=== PATIENT | female | born 1955 | race Caucasian/White ===

== ENCOUNTER 2016-10-03 13:31 | Inpatient (IN) | payer MEDICAID ==
--- NOTE | 2016-10-03 13:52 | Emergency Department Record ---
History of Present Illness - General Chief Complaint: Slurred speech Stated Complaint: SLURRED SPEECH Time Seen by Provider: 10/03/16 13:40 Source: Patient, Family Mode of Arrival: Wheelchair Limitations: No limitations - History of Present Illness Initial Comments: The patient is here with family due to not feeling well for one day. She developed weakness and confusion last evening per her family. She has not had anything to drink in almost 24 hours per her son and she is not able to get up and walk. The patient has fallen recently but has not hit her head and and she denies any CP, SOB, OAEKS or visual changes. The patient and son deny any new medicines or running out of any medicines. Onset/Timin -: Days(s) Location: Ataxia, Speech History of same: No Place: Home Severity: Mild Quality: Weak Improves With: None Worsens With: None On Anticoagulants: No Context: Recent fall, Gradual onset Associated Symptoms: Confusion, Headaches, Weakness Treatments Prior to Arrival: None - [place] Coma Scale Eye Response: (4) Open spontaneously Motor Response: (6) Obeys commands Verbal Response: (5) Oriented Karlene Total: 15 - Symptoms of Stroke Onset of Symptoms Date: 10/02/16 Symptoms of stroke: Muscle Weakness, Unable to Think Clearly, Unsteady When Walking - Related Data Home Medications: Home Medications Medication Instructions Recorded Confirmed Last Taken Albuterol Sulfate [Ventolin Hfa] 1 - 2 puff IH .EVERY 4-6 HOURS PRN 07/11/14 Unknown Gabapentin [Neurontin] 600 mg PO TID 07/11/14 10/03/16 Unknown Levothyroxine Sodium [Synthroid] 88 mcg PO DAILY 07/11/14 10/03/16 Unknown Omeprazole [Prilosec] 20 mg PO DAILY 07/11/14 10/03/16 Unknown Trazodone HCl [Desyrel] 50 mg PO QHS 07/11/14 10/03/16 Unknown Duloxetine HCl [Cymbalta] 30 mg PO DAILY 03/05/16 10/03/16 Unknown Ergocalciferol (Vitamin D2) 100,000 unit PO WEEKLY 03/05/16 10/03/16 Unknown [Vitamin D2] Hydroxyzine Pamoate [Vistaril] 50 mg PO QID 03/05/16 10/03/16 Unknown Mometasone/Formoterol [Dulera 100 2 puff IH BID 03/05/16 10/03/16 Unknown Mcg/5 Mcg Inhaler] Aspirin [Aspir-Low] 81 mg PO DAILY 10/03/16 10/03/16 Unknown Gabapentin [Neurontin] 400 mg PO TID 10/03/16 10/03/16 Unknown Meloxicam [Mobic] 15 mg PO DAILY 10/03/16 10/03/16 Unknown Previous Rx's Medication Instructions Recorded Nitrofurantoin [place] [Macrobid] 100 mg PO BID #10 capsule 03/06/16 Allergies/Adverse Reactions: Allergies Allergy/AdvReac Type Severity Reaction Status Date / Time haloperidol [From Haldol] Allergy SWELLING Verified 10/03/16 13:39 OF THE TONGUE haloperidol lactate Allergy SWELLING Verified 10/03/16 13:39 [From Haldol] OF THE TONGUE Penicillins Allergy HIVES Verified 10/03/16 13:39 Travel Screening - Travel/Exposure Within Last 30 Days Have you traveled within the last 30 days?: No Review of Systems Constitutional: Reports: Malaise. Denies: Chills, Fever Eyes: Denies: Eye discharge ENT: Denies: Congestion Respiratory: Denies: Cough, Dyspnea Cardiovascular: Denies: Arrhythmia, Chest pain Endocrine: Reports: Fatigue Gastrointestinal: Denies: Nausea Genitourinary: Denies: Dysuria Musculoskeletal: Denies: Back pain Skin: Denies: Bruising Past Medical History - SOCIAL HISTORY Smoking Status: Former smoker Alcohol Use: Occassional Drug Use: None - RESPIRATORY Hx Respiratory Disorders: Yes Hx COPD: Yes - CARDIOVASCULAR Hx Cardio Disorders: Yes Comment:: leaky mitral and aortic valve - NEURO Hx Neuro Disorders: Yes Hx Dizziness: Yes Hx Seizures: No Hx TIA: Yes - GI Hx GI Disorders: Yes Hx Reflux: Yes Hx Ulcer: Yes - Hx Genitourinary Disorders: Yes Hx UTI: Yes Comment:: interstitial cystitis - ENDOCRINE Hx Endocrine Disorders: Yes Hx Thyroid Disease: Yes (hyper) - MUSCULOSKELETAL Hx Musculoskeletal Disorders: Yes Hx Arthritis: Yes Hx Back Injury: Yes (ruptured disks in neck and lower back) Comment:: stenosis of the spine - PSYCH Hx Psych Problems: Yes Hx Anxiety: Yes - HEMATOLOGY/ONCOLOGY Hx Hematology/Oncology Disorders: No Family Medical History Any Significant Family History?: Yes Hx Cancer: Father Physical Exam - General General Appearance: Alert, Cooperative, No acute distress - Head Head exam: Atraumatic, Normocephalic, Normal inspection - Eye Eye exam: Normal appearance, PERRL - ENT Throat exam: Normal inspection. negative: Tonsillar erythema, Tonsillar exudate - Neck Neck exam: Normal inspection, Full ROM. negative: Tenderness - Respiratory Respiratory exam: Decreased breath sounds. negative: Normal lung sounds bilaterally, Respiratory distress - Cardiovascular Cardiovascular Exam: Regular rate, Normal rhythm, Normal heart sounds - Extremities Extremities exam: Normal inspection, Full ROM, Normal capillary refill. negative: Tenderness - Neurological Neurological exam: Abnormal gait, Alert. negative: Motor sensory deficit, Normal gait, Oriented X3 (The patient is oriented to name, place, and Bday but not the year. 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 She is more awake and alert and denies any pain or discomfort. Her speech is much more clear and she denies any OAKES, arm or leg numbness, or weakness. Due to the multiple abnormalities with her workup regarding her lab tests we will admit her to the hospital overnight for IV ABx, fluids, and repeat lab testing. 10/03/16 15:44 Medical Decision Making - Data Complexity MDM Data: Labs Ordered and/or Reviewed, X-Ray Ordered and/or Reviewed, EKG Ordered and/or Reviewed - Lab Data Result diagrams: 10/03/16 13:50 10/03/16 13:50 - EKG Data -: EKG Interpreted by Nc EKG: No Acute Changes, Unchanged From Previous - Radiology Data Radiology results: Report reviewed (CXR: No acute changes. Head CT: No acute changes.) Disposition Disposition: Admit Clinical Impression: Altered mental status Qualifiers: Altered mental status type: unspecified Qualified Code(s): R41.82 - Altered mental status, unspecified Disposition: Still a Patient at [facility] Decision to Admit: Admit from ER Decision to Admit Date: 10/03/16 Decision to Admit Time: 15:46 Accepting Physician: Christel Time Discussed w/Accepting Physician: 15:46 Condition: (2) Stable Forms: Patient Portal Access Time of Disposition: 15:46
[2016-10-03 14:01] LABS: BASO % 0.4 % (0-6); EOS % 0.6 % (0-6); GRAN % 77.2 % (47-80); HEMATOCRIT 44.6 % (35.0-47.0); HEMOGLOBIN 13.6 gm/dl (11.6-16.0); LYMPH % 9.3 % (16-45); MEAN CELL VOLUME 99.6 fl (81-97); MEAN CORPUSCULAR HEMOGLOBIN 30.4 pg (27-33); MEAN CORPUSCULAR HGB CONC 30.5 g/dl (32-36); MEAN PLATELET VOLUME 10.3 fl (7.4-10.4); MONO % 12.5 % (0-9); PLATELET COUNT 335 K/uL (130-400); RED BLOOD COUNT 4.48 M/uL (3.80-5.40); RED CELL DISTRIBUTION WIDTH 14.9 % (11.5-14.5); WHITE BLOOD COUNT W/O DIFF 14.2 K/uL (4.2-12.2)
[2016-10-03 14:15] LABS: ANION GAP 6.2 (7-16); BLOOD UREA NITROGEN 40 mg/dL (7-17); CARBON DIOXIDE 33.8 mmol/L (22-30); CREATINE PHOSPHOKINASE 545 U/L (30-135); CREATININE 0.9 mg/dL (0.52-1.04); EST GLOMERULAR FILTRATION RATE > 60 ml/min; GLUCOSE,RANDOM 95 mg/dL (70-110)
[2016-10-03 14:27] LABS: CKMB 3.1 ug/L (0-6); TROPONIN I 0.053 ng/mL (0.00-0.034)
[2016-10-03 14:29] LABS: INR 0.9; PARTIAL THROMBOPLASTIN TIME 31.7 SECONDS (24.5-39.1); PROTHROMBIN TIME (PATIENT) 10.2 SECONDS (9.5-12.1)
[2016-10-03] MEDS ORDERED: 0.9 % SODIUM CHLORIDE 1,000 ML BAG IV ONE (14:39)
[2016-10-03 15:02] LABS: URINE APPEARANCE CLEAR; URINE BILIRUBIN NEGATIVE (NEGATIVE); URINE BLOOD TRACE-I (NEGATIVE); URINE COLOR YELLOW; URINE GLUCOSE (UA) NEGATIVE (NEGATIVE); URINE KETONE 15 mg/dL (NEGATIVE); URINE LEUKOCYTE ESTERASE TRACE (NEGATIVE); URINE NITRITE POSITIVE (NEGATIVE); URINE PROTEIN TRACE (NEGATIVE); URINE UROBILINOGEN 0.2 E.U./dL (0.20 - 1.00)
[2016-10-03 15:11] LABS: URINE BACTERIA 4+; URINE EPITHELIAL CELLS 0 - 2 (FEW); URINE RBC 0 - 2 (NONE SEEN)
[2016-10-03 15:12] LABS: AMPHETAMINE SCREEN URINE NOT DETECTED; BARBITURATE SCREEN URINE NOT DETECTED; BENZODIAZEPINE SCREEN URINE NOT DETECTED; COCAINE SCREEN URINE NOT DETECTED; METHADONE SCREEN URINE NOT DETECTED; METHAMPHETAMINE SCREEN NOT DETECTED; OPIATE SCREEN URINE DETECTED; PHENCYCLIDINE SCREEN URINE NOT DETECTED; PROPOXYPHENE SCREEN URINE NOT DETECTED; THC SCREEN URINE DETECTED; TRICYCLIC ANTIDEPRESSANT SCRN DETECTED
[2016-10-03] MEDS ORDERED: CIPROFLOXACIN LACTATE/D5W 400 MG in DEXTROSE 1 BAG IVPB ONE (15:12)
[2016-10-03 15:13] LABS: OXYCODONE SCREEN URINE NOT DETECTED
[2016-10-03] MEDS ORDERED: ONDANSETRON HCL IV 4 MG/2 ML VIAL IVP PRN (16:59)
--- NOTE | 2016-10-03 17:21 | History & Physical ---
History of Present Illness - Date of Service Date of Service for History & Physical: 10/04/16 - History of Present Illness History of Present Illness: 61 yo female admitted w/ AMS, UTI and URI. PMHx of COPD (non oxygen dependent) , smoker (quit 1 week ago, 1 ppd x 50 years), acid reflux, h/o TIA about 10 years ago, h/o etoh abuse, hypothyroidism, sleeping difficulty, anxiety, and LBP (h/o laminectomy). History obtained from patient who is A&O x 3 on exam. patient was brought into our ED by family for altered mental status. According to pt's ED documentation, patient had been experiencing weakness and confusion for one day. Family stated that pt had not had anything to drink for > 24 hours. Upon presentation, temp 98.1, HR 99, RR 18, BP 138/74, pulse ox 88. WBC 14.2, CO2 33.8, BUN 40, Cr 0.9, creatinine kinase 545, CK-MB 2.3, troponin 0.53, UA: trace leuks, pos nitrites, 4+ bacteria, UDS: opiates, TCA, cannabis. 0.[address]: NAP. CXR: CHF, vasc congestion. EKG: anteroseptal infarct, old. sinus tachy. Patient started on IV Cipro in the ER along with IVF 's. She was admitted for further medical management. 10/04/16: patient sitting up in bed comfortably. A&Ox3. NAD. States she's feeling better. She has a hard time telling me what brought her to the hospital. States she believes she was brought in for further evaluation of cough. Admits to productive cough w/ green/ yellow sputum. +red tinged sputum this am. Denies CP, fever, chills, SOB, abdominal pain, n/v/diarrhea, constipation, dysuria, hematuria, unintentional weight loss, OAKES, visual changes , and weakness. According to family, patient feel prior to arrival, however did not hit her head or experience any injuries. Denies any sick contacts, hospitalizations within the past 6 months or change in medications. no recent travel. Denies h/o HI. H/O TIA 10 years ago per patient. 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 Opiates not on med list. Patient denies opiate use however UDS positive PCP: Jeancarlos Marlow Travel Screening - Travel/Exposure Within Last 30 Days Have you traveled within the last 30 days?: No Review of Systems Constitutional: Reports: Weakness. Denies: Chills, Fever, Malaise Eyes: Denies: Eye discharge, Vision change ENT: Denies: Congestion Respiratory: Reports: Cough (yellow, green sputum, sligth blood tinged this am) . Denies: Dyspnea Cardiovascular: Denies: Arrhythmia, Chest pain Endocrine: Reports: Fatigue Gastrointestinal: Denies: Diarrhea, Nausea Genitourinary: Denies: Dysuria Musculoskeletal: Denies: Back pain Skin: Denies: Bruising Psychiatric: Reports: Anxiety Past Medical History - SOCIAL HISTORY Smoking Status: Former smoker Alcohol Use: Occassional Drug Use: None - RESPIRATORY Hx Respiratory Disorders: Yes Hx COPD: Yes - CARDIOVASCULAR Hx Cardio Disorders: Yes Comment:: leaky mitral and aortic valve - NEURO Hx Neuro Disorders: Yes Hx Dizziness: Yes Hx Seizures: No Hx TIA: Yes - GI Hx GI Disorders: Yes Hx Reflux: Yes Hx Ulcer: Yes - Hx Genitourinary Disorders: Yes Hx UTI: Yes Comment:: interstitial cystitis - ENDOCRINE Hx Endocrine Disorders: Yes Hx Thyroid Disease: Yes (hyper) - MUSCULOSKELETAL Hx Musculoskeletal Disorders: Yes Hx Arthritis: Yes Hx Back Injury: Yes (ruptured disks in neck and lower back) Comment:: stenosis of the spine - PSYCH Hx Psych Problems: Yes Hx Anxiety: Yes - HEMATOLOGY/ONCOLOGY Hx Hematology/Oncology Disorders: No Family Medical History Any Significant Family History?: Yes Hx Cancer: Father H&P Meds/Allergies - Allergies Allergies: Allergies Allergy/AdvReac Type Severity Reaction Status Date / Time haloperidol [From Haldol] Allergy SWELLING Verified 10/03/16 13:39 OF THE TONGUE haloperidol lactate Allergy SWELLING Verified 10/03/16 13:39 [From Haldol] OF THE TONGUE Penicillins Allergy HIVES Verified 10/03/16 13:39 - Home Medications Home Medications Medication Instructions Recorded Confirmed Last Taken Albuterol Sulfate [Ventolin Hfa] 1 - 2 puff IH .EVERY 4-6 HOURS PRN 07/11/14 Unknown Gabapentin [Neurontin] 600 mg PO TID 07/11/14 10/03/16 Unknown Levothyroxine Sodium [Synthroid] 88 mcg PO DAILY 07/11/14 10/03/16 Unknown Omeprazole [Prilosec] 20 mg PO DAILY 07/11/14 10/03/16 Unknown Trazodone HCl [Desyrel] 50 mg PO QHS 07/11/14 10/03/16 Unknown Duloxetine HCl [Cymbalta] 30 mg PO DAILY 03/05/16 10/03/16 Unknown Ergocalciferol (Vitamin D2) 100,000 unit PO WEEKLY 03/05/16 10/03/16 Unknown [Vitamin D2] Hydroxyzine Pamoate [Vistaril] 50 mg PO QID 03/05/16 10/03/16 Unknown Mometasone/Formoterol [Dulera 100 2 puff IH BID 03/05/16 10/03/16 Unknown Mcg/5 Mcg Inhaler] Aspirin [Aspir-Low] 81 mg PO DAILY 10/03/16 10/03/16 Unknown Gabapentin [Neurontin] 400 mg PO TID 10/03/16 10/03/16 Unknown Meloxicam [Mobic] 15 mg PO DAILY 10/03/16 10/03/16 Unknown Previous Rx's Medication Instructions Recorded Nitrofurantoin [place] [Macrobid] 100 mg PO BID #10 capsule 03/06/16 - Active Medications Active Medications: Current Medications Ondansetron HCl (Zofran) 4 mg IVP Q4H PRN PRN Reason: NAUSEA Last Admin: 10/03/16 17:05 Dose: 4 mg Physical Exam - General General Appearance: Alert, Oriented x3, Cooperative, No acute distress Limitations: No limitations - Head Head exam: Atraumatic, Normocephalic, Normal inspection - Eye Eye exam: Normal appearance, PERRL - ENT Throat exam: Normal inspection. negative: Tonsillar erythema, Tonsillar exudate - Neck Neck exam: Normal inspection, Full ROM. negative: Tenderness - Respiratory Respiratory exam: Decreased breath sounds, Wheezes. negative: Normal lung sounds bilaterally, Respiratory distress - Cardiovascular Cardiovascular Exam: Regular rate, Normal rhythm, Normal heart sounds - GI/Abdominal GI/Abdominal exam: Soft, Normal bowel sounds. negative: Distended, Guarding, Rebound, Tenderness - Rectal Rectal exam: Deferred - exam: Deferred - Extremities Extremities exam: Normal inspection, Full ROM, Normal capillary refill. negative: Tenderness - Neurological Neurological exam: Alert, Oriented X3. negative: Motor sensory deficit, Normal gait Results - Labs Result Diagrams: 10/04/16 03:00 10/04/16 03:00 VTE H&P Assessment - Risk for VTE Risk for VTE: Yes Risk Level: Low Risk Assessment Date: 10/04/16 Risk Assessment Time: 10:00 VTE Orders Placed or Will Be Placed: Yes Plan - Detailed Diagnosis and Plan (1) Altered mental status Current Visit: Yes Status: Acute Qualifiers: Altered mental status type: unspecified Qualified Code(s): R41.82 - Altered mental status, unspecified Base Code: R41.82 - ALTERED MENTAL STATUS , UNSPECIFIED Comment: 10/04/16: medication vs. infection vs. other? I suspect related to opiate abuse. Patient A&Ox3. Head CT negative. - continue to treat infection - will monitor closely. (2) Elevated troponin Current Visit: Yes Status: Acute Base Code: R74.8 - ABNORMAL LEVELS OF OTHER SERUM ENZYMES Comment: 10/04/16: troponin 0.53. EKG: old anteroseptal infart, sinus tach. CXR : vasc congestion. patient denies CP. - ischemia vs. fluid overload vs. other? - trend troponins - repeat EKG unchanged - BNP ordered - telemetry - ECHO Wednesday - Cardiology consult - hold IVFs - cardiac, low sodium diet (3) UTI (urinary tract infection) Current Visit: Yes Status: Acute Base Code: N39.0 - URINARY TRACT INFECTION, SITE NOT SPECIFIED Comment: 10/04/16: UA: trace leuks, 4+ bacteria. WBC normalized. Patient afebrile. She denies abdominal pain, dysuria, hematuria. - 1 gm IV Rocephin Q 12 hours - gentle hydration noting fluid overload. (4) Cough Current Visit: Yes Status: Acute Base Code: R05 - COUGH Comment: 10/04/16: CXR: vascular congestion. WBC normalized. afebrile. Pulm exam suggestions fluid - continue COPD meds - Due Neb treatments Q4H WA - no LE edema - BNP - hold IVFs, consider initiating furosemid if BNP elevated (5) DVT prophylaxis Current Visit: Yes Status: Acute Base Code: [id number] - Comment: 10/04/16: low risk due to decreased mobility. lovenox 40 mg sq daily. (6) Full code status Current Visit: Yes Status: Acute Base Code: Z78.9 - OTHER SPECIFIED HEALTH STATUS Comment: 10/04/16: pt is full code
[2016-10-03] MEDS: IPRATROPIUM/ALBUTEROL (0.5MG/3MG) NEB INH SCH ×2 (18:06→22:22)
[2016-10-03] MEDS ORDERED: HYDROXYZINE PAMOATE 25 MG CAPSULE PO PRN (22:02)
[2016-10-03] MEDS: NITROFURANTOIN MONO 100 MG CAPSULE PO SCH (22:27)
[2016-10-03] MEDS: MELOXICAM 7.5 MG TABLET PO SCH (22:28)
[2016-10-03] MEDS ORDERED: MOMETASONE IH SCH (22:49)
[2016-10-03] MEDS ORDERED: FORMOTEROL IH SCH (22:49)
[2016-10-03] MEDS ORDERED: GABAPENTIN 300 MG CAPSULE PO SCH (22:49)
[2016-10-03] MEDS ORDERED: ACETAMINOPHEN 500 MG TABLET PO PRN (22:49)
[2016-10-03] MEDS ORDERED: GABAPENTIN 400 MG PO SCH (22:49)
[2016-10-03] MEDS ORDERED: CIPROFLOXACIN LACTATE/D5W 400 MG in DEXTROSE 1 BAG IVPB SCH (22:49)
[2016-10-03] MEDS ORDERED: ALBUTEROL HFA 8 GM INHALER INH PRN (22:49)
[2016-10-04 03:44] LABS: BLOOD UREA NITROGEN 22 mg/dL (7-17); CREATININE 0.6 mg/dL (0.52-1.04); EST GLOMERULAR FILTRATION RATE > 60 ml/min; GLUCOSE,RANDOM 80 mg/dL (70-110)
[2016-10-04 03:47] LABS: BASO % 0.5 % (0-6); EOS % 1.1 % (0-6); GRAN % 68.1 % (47-80); HEMATOCRIT 39.1 % (35.0-47.0); HEMOGLOBIN 11.8 gm/dl (11.6-16.0); LYMPH % 17.9 % (16-45); MEAN CELL VOLUME 99.5 fl (81-97); MEAN CORPUSCULAR HGB CONC 30.2 g/dl (32-36); MEAN PLATELET VOLUME 10.7 fl (7.4-10.4); MONO % 12.4 % (0-9); PLATELET COUNT 300 K/uL (130-400); RED BLOOD COUNT 3.93 M/uL (3.80-5.40); RED CELL DISTRIBUTION WIDTH 14.9 % (11.5-14.5); WHITE BLOOD COUNT W/O DIFF 10.9 K/uL (4.2-12.2)
[2016-10-04] MEDS: IPRATROPIUM/ALBUTEROL (0.5MG/3MG) NEB INH SCH ×6 (06:27→22:32)
[2016-10-04] MEDS: PANTOPRAZOLE SODIUM 40 MG TABLET PO SCH (06:53)
[2016-10-04] MEDS ORDERED: KETOROLAC 60 MG/2 ML VIAL IM PRN (09:12)
[2016-10-04] MEDS: LEVOTHYROXINE SODIUM 88 MCG TABLET PO SCH (09:44)
[2016-10-04] MEDS: ASPIRIN 81 MG TABEC PO SCH (09:53)
[2016-10-04] MEDS: NITROFURANTOIN MONO 100 MG CAPSULE PO SCH ×2 (09:53→22:32)
[2016-10-04] MEDS ORDERED: ASPIRIN 81 MG TABEC PO SCH (10:00)
[2016-10-04] MEDS ORDERED: LEVOTHYROXINE SODIUM 88 MCG PO SCH (10:00)
[2016-10-04] MEDS ORDERED: Non-Formulary MISC (Omeprazole 20 MG) PO SCH (10:00)
[2016-10-04] MEDS ORDERED: MELOXICAM 15 MG PO SCH (10:00)
[2016-10-04] MEDS ORDERED: DULOXETINE HCL 30 MG CAPSULE.DR PO SCH ×2 (10:00)
[2016-10-04] MEDS ORDERED: GABAPENTIN 100 MG CAPSULE PO SCH (10:00)
[2016-10-04] MEDS ORDERED: ALBUTEROL SULFATE (0.083%) 2.5 MG/3 ML NEB INH PRN (10:09)
[2016-10-04] MEDS: 0.9 % SODIUM CHLORIDE 1000ML 1,000 ML IV PRN (10:13)
[2016-10-04] MEDS: CEFTRIAXONE SODIUM 1 GM in 0.9 % SODIUM CHLORIDE 100ML 100 ML IVPB SCH ×2 (10:30→22:30)
[2016-10-04] MEDS: BUDESONIDE 0.5 MG/2 ML INH SCH ×2 (10:46→18:43)
[2016-10-04] MEDS: DULOXETINE HCL 30 MG CAPSULE.DR PO SCH (10:47)
[2016-10-04] MEDS: AZITHROMYCIN 500 MG TABLET PO SCH (10:47)
[2016-10-04] MEDS: GABAPENTIN 300 MG CAPSULE PO SCH ×2 (10:47→22:31)
[2016-10-04] MEDS ORDERED: TRAMADOL HCL 50 MG TABLET PO PRN ×3 (14:46→15:01)
[2016-10-04] MEDS: ENOXAPARIN 40 MG/0.4 ML SYR SQ SCH (15:08)
[2016-10-04] MEDS: FUROSEMIDE IV 20MG/2ML VIAL IVP SCH (15:13)
[2016-10-04] MEDS: OXYCODONE/APAP 10MG-325MG TABLET PO PRN (19:55)
[2016-10-04] MEDS ORDERED: GABAPENTIN 300 MG CAPSULE PO SCH (22:00)
[2016-10-04] MEDS: TRAZODONE 50 MG TABLET PO SCH (22:29)
[2016-10-04] MEDS: MELOXICAM 7.5 MG TABLET PO SCH (22:30)
[2016-10-05] MEDS: OXYCODONE/APAP 10MG-325MG TABLET PO PRN ×5 (04:29→23:51)
[2016-10-05] MEDS: LEVOTHYROXINE SODIUM 88 MCG TABLET PO SCH (06:13)
[2016-10-05] MEDS: PANTOPRAZOLE SODIUM 40 MG TABLET PO SCH (06:13)
[2016-10-05] MEDS: IPRATROPIUM/ALBUTEROL (0.5MG/3MG) NEB INH SCH ×5 (06:33→21:15)
[2016-10-05] MEDS: BUDESONIDE 0.5 MG/2 ML INH SCH ×2 (06:33→18:18)
[2016-10-05 06:48] LABS: HEMATOCRIT 39.7 % (35.0-47.0); HEMOGLOBIN 12.1 gm/dl (11.6-16.0); MEAN CELL VOLUME 98.5 fl (81-97); MEAN CORPUSCULAR HGB CONC 30.5 g/dl (32-36); MEAN PLATELET VOLUME 10.7 fl (7.4-10.4); PLATELET COUNT 319 K/uL (130-400); RED BLOOD COUNT 4.03 M/uL (3.80-5.40); RED CELL DISTRIBUTION WIDTH 14.3 % (11.5-14.5); WHITE BLOOD COUNT W/O DIFF 7.6 K/uL (4.2-12.2)
[2016-10-05 07:08] LABS: ANION GAP 4.5 (7-16); BLOOD UREA NITROGEN 22 mg/dL (7-17); CARBON DIOXIDE 36.5 mmol/L (22-30); CREATININE 0.7 mg/dL (0.52-1.04); EST GLOMERULAR FILTRATION RATE > 60 ml/min; GLUCOSE,RANDOM 92 mg/dL (70-110)
[2016-10-05 07:19] LABS: PLATELET ESTIMATE NORMAL (NORMAL)
--- NOTE | 2016-10-05 08:37 | RADIOLOGY REPORT ---
EXAM: CHEST, TWO VIEWS HISTORY: WEAKNESS, SLURRED SPEECH. TECHNIQUE: AP upright and lateral views of the chest were obtained. Comparison: Two view chest 03/05/16. FINDINGS: Slightly greater prominence of the heart size and probably some mild pulmonary venous hypertension currently as well. No acute alveolar infiltrate is seen. No pleural effusion or pneumothorax evident. Focus of sclerosis in the left humeral neck also present previously may be a small bone infarct or enchondroma. On the lateral view there is a suggestion of some coarse interstitial infiltrate as well in the retrosternal region in particular compared to the prior study. This may also be related to some vascular congestion although acute interstitial pneumonitis could give a similar appearance. IMPRESSION: 1. PROMINENCE OF THE HEART SIZE AND SOME PULMONARY VENOUS HYPERTENSION. CLINICAL CORRELATION TO MILD CHF SUGGESTED. 2. SCLEROTIC FOCUS PROXIMAL LEFT HUMERUS BEFORE. JOB NUMBER: [id number] AND [id number] [facility]
--- NOTE | 2016-10-05 08:41 | CT SCAN REPORT ---
EXAM: HEAD CT HISTORY: WEAKNESS, SLURRED SPEECH LAST NIGHT. TECHNIQUE: Axial CT scan of the head was performed without IV contrast. Comparison: Head CT dated 03/05/16. FINDINGS: No definite acute intracranial hemorrhage identified. No focal mass effect or midline shift evident. Small subtle area of low attenuation in the white matter of the right parietal lobe as previously noted appearing essentially unchanged. No definite acute infarct identified. If neurologic symptoms persist, follow-up brain MRI may be useful for further evaluation if not contraindicated. No depressed calvarial fracture is evident. IMPRESSION: 1. NO ACUTE INTRACRANIAL HEMORRHAGE OR FOCAL MASS EFFECT IDENTIFIED. 2. SMALL SUBTLE AREA OF LOW ATTENUATION DEEP WHITE MATTER RIGHT PARIETAL LOBE PREVIOUSLY NOTED. JOB NUMBER: [id number] MTDD
--- NOTE | 2016-10-05 08:48 | RADIOLOGY REPORT ---
EXAM: ABDOMEN, ONE VIEW HISTORY: LEFT FLANK PAIN. DARK URINE. TECHNIQUE: A single AP supine view of the abdomen was obtained. Comparison: CT of the abdomen and pelvis with contrast dated 11/20/14. FINDINGS: Gas and stool are noted throughout a nondilated colon to the level of the rectum. No small bowel dilatation is seen. No definite new mass or organomegaly is identified. No definite calcific density noted at the level of either kidney to suggest nephrolithiasis. Multiple small round calcifications scattered within the inferior pelvis have a pattern similar to that seen on prior CT examination. These are likely phleboliths. There is a small calcific density projecting at the level of the superior aspect of the right sacral ala measuring 1.5 mm. This corresponds to a phlebolith within the right gonadal vein on prior CT examination. There is levoconvex scoliosis centered at the L2 level associated with multilevel degenerative changes of the visualized spine. There are mild degenerative changes of the right hip and mild to moderate degenerative changes of the left hip. Calcified injection granulomas are noted in each gluteal region. IMPRESSION: 1. NO BOWEL DILATATION, MASS NOR DEFINITE NEW SUSPICIOUS CALCIFICATION. 2. DEGENERATIVE CHANGES OF THE SPINE AND HIPS. 3. NOT MENTIONED ABOVE ARE POST RIGHT LAMINECTOMY CHANGES AT THE L4-L5 LEVEL. J[facility]: [id number] [facility]
[2016-10-05] MEDS: ASPIRIN 81 MG TABEC PO SCH (10:36)
[2016-10-05] MEDS: DULOXETINE HCL 30 MG CAPSULE.DR PO SCH (10:36)
[2016-10-05] MEDS: CEFTRIAXONE SODIUM 1 GM in 0.9 % SODIUM CHLORIDE 100ML 100 ML IVPB SCH ×3 (10:36→21:45)
[2016-10-05] MEDS: GABAPENTIN 300 MG CAPSULE PO SCH ×2 (10:37→21:13)
[2016-10-05] MEDS: AZITHROMYCIN 500 MG TABLET PO SCH (10:37)
[2016-10-05] MEDS: NITROFURANTOIN MONO 100 MG CAPSULE PO SCH ×2 (10:38→21:12)
[2016-10-05] MEDS: FUROSEMIDE IV 20MG/2ML VIAL IVP SCH (10:38)
[2016-10-05] MEDS: ENOXAPARIN 40 MG/0.4 ML SYR SQ SCH (10:38)
--- NOTE | 2016-10-05 11:00 | Physician Progress Note ---
Subjective - Date Date of Physician Progress Note: 10/05/16 - Subjective Subjective Comment: sitting up in bed comfortably back pain better controlled w/ Percocet q 6 hours prn slight nausea normal stool tolerated breakfast O2 dropped to 87 % on RA this morning Objective - Vital Signs Vital Signs: Vital Signs - Last 24 Hrs Temp Pulse Pulse Pulse Resp BP BP 10/05/16 10:36 86 18 10/05/16 10:30 92 H 20 10/05/16 09:00 86 16 10/05/16 07:55 97.5 F L 86 16 136/68 10/05/16 06:34 88 18 10/05/16 04:51 97.5 F L 87 18 162/86 10/04/16 21:00 97.8 F 90 86 16 154/72 10/04/16 17:00 98.4 F 86 16 143/72 10/04/16 13:00 98.5 F 94 H 16 143/74 Pulse Ox 10/05/16 10:36 10/05/16 10:30 87 L 10/05/16 09:00 10/05/16 07:55 96 10/05/16 06:34 95 10/05/16 04:51 96 10/04/16 21:00 93 L 10/04/16 17:00 96 10/04/16 13:00 98 - General General Appearance: Alert, Oriented x3, Cooperative, No acute distress Limitations: No limitations - Head Head exam: Atraumatic, Normocephalic, Normal inspection - Eye Eye exam: Normal appearance, PERRL - ENT Throat exam: Normal inspection. negative: Tonsillar erythema, Tonsillar exudate - Neck Neck exam: Normal inspection, Full ROM. negative: Tenderness - Respiratory Respiratory exam: Decreased breath sounds, Wheezes (base b/l). negative: Normal lung sounds bilaterally, Respiratory distress - Cardiovascular Cardiovascular Exam: Regular rate, Normal rhythm, Normal heart sounds - GI/Abdominal GI/Abdominal exam: Soft, Normal bowel sounds. negative: Distended, Guarding, Rebound, Tenderness - Rectal Rectal exam: Deferred - exam: Deferred - Extremities Extremities exam: Normal inspection, Full ROM, Normal capillary refill. negative: Tenderness - Neurological Neurological exam: Alert, Oriented X3. negative: Motor sensory deficit, Normal gait Assessment and Plan - Inpatient Certification Inpatient Certification: risk factors: hypoxia, fluid overload, SOB, AMS on admission, back pain treatment: respiratory therapy, supplemental O2, IV antibiotics, IV diuresis, close monitoring length of stay: 3-4 nights discharge plan: home, self care 10/05/16 11:08 - Assessment and Plan (1) Altered mental status Current Visit: Yes Status: Acute Qualifiers: Altered mental status type: unspecified Qualified Code(s): R41.82 - Altered mental status, unspecified Base Code: R41.82 - ALTERED MENTAL STATUS , UNSPECIFIED Comment: 10/05/16: medication vs. infection vs. other? I suspect related to opiate abuse. Patient A&Ox3. Head CT negative. - AMS resolved 10/04/16 - continue to treat infection - will monitor closely. (2) Elevated troponin Current Visit: Yes Status: Acute Base Code: R74.8 - ABNORMAL LEVELS OF OTHER SERUM ENZYMES Comment: 10/04/16: troponins trending down. EKG: old anteroseptal infart, sinus tach. CXR: vasc congestion. patient denies CP. - ischemia vs. fluid overload vs. other? - ECHO, cardiac evaluation ordered - repeat EKG unchanged - telemetry - hold IVFs - 20 mg of IV Lasix - cardiac, low sodium diet (3) UTI (urinary tract infection) Current Visit: Yes Status: Acute Base Code: N39.0 - URINARY TRACT INFECTION, SITE NOT SPECIFIED Comment: 10/05/16: UA: trace leuks, 4+ bacteria. WBC normal Patient afebrile. She denies abdominal pain, dysuria, hematuria. - 1 gm IV Rocephin Q 12 hours - PO hydration (4) Cough Current Visit: Yes Status: Acute Base Code: R05 - COUGH Comment: 10/05/16: CXR: vascular congestion. WBC normalized. afebrile. Pulm exam suggestions fluid, COPD - continue COPD meds - IV Rocephin and 500 mg of PO Azithromycin for PNA coverage - Due Neb treatments Q4H [place] - no LE edema - BNP elevated - hold IVFs, continue 20 mg of IV Lasix - will add mucinex 1200 mg bid (5) Full code status Current Visit: Yes Status: Acute Base Code: Z78.9 - OTHER SPECIFIED HEALTH STATUS Comment: 10/05/16: pt is full code (6) DVT prophylaxis Current Visit: Yes Status: Acute Base Code: [id number] - Comment: 10/05/16: Lovenox 40 mg sq daily. encouraged ambulation as tolerated. Results - Labs Result Diagrams: 10/05/16 05:55 10/05/16 05:55 Labs Last 24 Hours: Laboratory Results - last 24 hr 10/04/16 10/04/16 10/04/16 10:54 10:54 10:54 WBC RBC Hgb Hct MCV MCH MCHC RDW Plt Count MPV Neutrophils % Band Neutrophils % Lymphocytes % Monocytes % Eosinophils % Basophils % Platelet Estimate RBC Morphology Sodium Potassium Chloride Carbon Dioxide Anion Gap BUN Creatinine Estimated GFR Random Glucose Calcium CK-MB (CK-2) 1.3 Troponin I 0.031 NT-Pro-B Natriuret Pep 4330.00 H Triglycerides Cholesterol LDL Cholesterol Me[place]urd VLDL Cholesterol HDL Cholesterol 10/05/16 10/05/16 10/05/16 05:55 05:55 05:55 WBC 7.6 RBC 4.03 Hgb 12.1 Hct 39.7 MCV 98.5 H MCH 30.0 MCHC 30.5 L RDW 14.3 Plt Count 319 MPV 10.7 H Neutrophils % 51.0 Band Neutrophils % 0.0 Lymphocytes % 31.0 Monocytes % 17.0 H Eosinophils % 1.0 Basophils % Not Reportable Platelet Estimate Normal RBC Morphology Normal Sodium 140 Potassium 4.0 Chloride 99 Carbon Dioxide 36.5 H Anion Gap 4.5 L BUN 22 H Creatinine 0.7 Estimated GFR > 60 Random Glucose 92 Calcium 8.6 CK-MB (CK-2) Troponin I NT-Pro-B Natriuret Pep Triglycerides 93 Cholesterol 203 H LDL Cholesterol Measurd 140.0 H VLDL Cholesterol 18 HDL Cholesterol 59 DVT/PE Assessment - Risk for VTE Risk for VTE: No Risk Level: Low Risk Assessment Date: 10/04/16 Risk Assessment Time: 10:00 VTE Orders Placed or Will Be Placed: Yes - Active Medicaitons Current Medications: Current Medications Acetaminophen (Tylenol 500mg Tab) 500 mg PO Q6H PRN PRN Reason: PAIN/TEMP Last Admin: 10/04/16 06:53 Dose: 500 mg Albuterol Sulfate () 2.5 mg INH Q4H PRN PRN Reason: DIFFICULTY IN BREATHING Albuterol/Ipratropium (Duoneb) 3 ml INH RESP.Q4H.WA [facility] Last Admin: 10/05/16 10:34 Dose: 3 ml Aspirin (Ecotrin (Ec)) 81 mg PO DAILY [facility] Last Admin: 10/05/16 10:36 Dose: 81 mg Azithromycin (Zithromax) 500 mg PO DAILY [facility] Last Admin: 10/05/16 10:37 Dose: 500 mg Budesonide (Pulmicort) 0.5 mg INH RESP.BID [facility] Last Admin: 10/05/16 06:33 Dose: 0.5 mg Duloxetine HCl (Cymbalta) 90 mg PO DAILY [facility] Last Admin: 10/05/16 10:36 Dose: 90 mg Enoxaparin Sodium (Lovenox) 40 mg SQ DAILY [facility] Last Admin: 10/05/16 10:38 Dose: 40 mg Furosemide (Lasix Iv) 20 mg IVP DAILY [facility] Last Admin: 10/05/16 10:38 Dose: 20 mg Gabapentin (Neurontin) 600 mg PO DAILY [facility] Last Admin: 10/05/16 10:37 Dose: 600 mg Gabapentin (Neurontin) 900 mg PO QHS [facility] Last Admin: 10/04/16 22:31 Dose: 900 mg Hydroxyzine Pamoate (Vistaril) 50 mg PO Q6H PRN PRN Reason: ANXIETY Last Admin: 10/04/16 09:54 Dose: 50 mg Sodium Chloride () 1,000 mls @ 125 mls/hr IV .Q8H PRN PRN Reason: LARGE VOLUME IV Last Admin: 10/04/16 10:13 Dose: 125 mls/hr Ceftriaxone Sodium 1 gm/ (Sodium Chloride) 100 mls @ 200 mls/hr IVPB Q12H [facility] Stop: 10/09/16 10:31 Last Admin: 10/05/16 10:36 Dose: 200 mls/hr Levothyroxine Sodium (Synthroid) 88 mcg PO DAILYTHY [facility] Last Admin: 10/05/16 06:13 Dose: 88 mcg Meloxicam (Mobic) 15 mg PO QHS [facility] Last Admin: 10/04/16 22:30 Dose: 15 mg Nitrofurantoin Macrocrystals (Macrobid) 100 mg PO BID [facility] Last Admin: 10/05/16 10:38 Dose: 100 mg Ondansetron HCl (Zofran) 4 mg IVP Q4H PRN PRN Reason: NAUSEA Last Admin: 04/22/17 17:05 Dose: 4 mg Oxycodone/Acetaminophen (Percocet 10-325 Mg Tablet) 1 each PO Q6H PRN PRN Reason: Pain - Severe (8-10) Last Admin: 10/05/16 10:37 Dose: 1 each Pantoprazole Sodium (Protonix) 40 mg PO DAILYAC [facility] Last Admin: 10/05/16 06:13 Dose: 40 mg Tramadol HCl (Ultram) 50 mg PO Q6H PRN PRN Reason: Pain - General Tramadol HCl (Ultram) 100 mg PO Q6H PRN PRN Reason: Pain - General Last Admin: 10/04/16 15:07 Dose: 100 mg Trazodone HCl (Desyrel) 150 mg PO QHS [facility] Last Admin: 10/04/16 22:29 Dose: 150 mg AMI Plan - Labs Result Diagrams: 10/05/16 05:55 10/05/16 05:55
[2016-10-05] MEDS: MELOXICAM 7.5 MG TABLET PO SCH ×2 (12:18→21:11)
[2016-10-05] MEDS: TRAZODONE 50 MG TABLET PO SCH (21:10)
[2016-10-06] MEDS: CEFTRIAXONE SODIUM 1 GM in 0.9 % SODIUM CHLORIDE 100ML 100 ML IVPB SCH (04:11)
[2016-10-06] MEDS: 0.9 % SODIUM CHLORIDE 1000ML 1,000 ML IV PRN (05:45)
[2016-10-06] MEDS: BUDESONIDE 0.5 MG/2 ML INH SCH ×2 (06:00→18:52)
[2016-10-06] MEDS: IPRATROPIUM/ALBUTEROL (0.5MG/3MG) NEB INH SCH ×4 (06:00→18:51)
[2016-10-06] MEDS: PANTOPRAZOLE SODIUM 40 MG TABLET PO SCH (06:14)
[2016-10-06] MEDS: OXYCODONE/APAP 10MG-325MG TABLET PO PRN ×3 (06:14→18:43)
[2016-10-06] MEDS: LEVOTHYROXINE SODIUM 88 MCG TABLET PO SCH (06:16)
[2016-10-06 06:46] LABS: BASO % 0.6 % (0-6); GRAN % 55.3 % (47-80); HEMATOCRIT 41.6 % (35.0-47.0); HEMOGLOBIN 12.5 gm/dl (11.6-16.0); LYMPH % 29.7 % (16-45); MEAN CELL VOLUME 98.3 fl (81-97); MEAN CORPUSCULAR HEMOGLOBIN 29.6 pg (27-33); MEAN PLATELET VOLUME 9.6 fl (7.4-10.4); MONO % 12.4 % (0-9); PLATELET COUNT 339 K/uL (130-400); RED BLOOD COUNT 4.23 M/uL (3.80-5.40); RED CELL DISTRIBUTION WIDTH 14.5 % (11.5-14.5); WHITE BLOOD COUNT W/O DIFF 7.9 K/uL (4.2-12.2)
[2016-10-06 07:07] LABS: BLOOD UREA NITROGEN 20 mg/dL (7-17); CREATININE 0.7 mg/dL (0.52-1.04); EST GLOMERULAR FILTRATION RATE > 60 ml/min; GLUCOSE,RANDOM 96 mg/dL (70-110)
[2016-10-06 08:30] LABS: THYROID STIMULATING HORMONE 44.5 uIU/ml (0.465-4.68)
[2016-10-06] MEDS: DULOXETINE HCL 30 MG CAPSULE.DR PO SCH (09:45)
[2016-10-06] MEDS: FUROSEMIDE IV 20MG/2ML VIAL IVP SCH (09:46)
[2016-10-06] MEDS: ASPIRIN 81 MG TABEC PO SCH (09:46)
[2016-10-06] MEDS: ENOXAPARIN 40 MG/0.4 ML SYR SQ SCH (09:47)
[2016-10-06] MEDS: NITROFURANTOIN MONO 100 MG CAPSULE PO SCH (09:47)
[2016-10-06] MEDS: GABAPENTIN 300 MG CAPSULE PO SCH (09:48)
[2016-10-06] MEDS ORDERED: LEVOFLOXACIN 500 MG TABLET PO SCH (10:00)
--- NOTE | 2016-10-06 15:38 | Physician Progress Note ---
Subjective - Date Date of Physician Progress Note: 10/06/16 - Subjective Subjective Comment: Reports breathing has improved, recalls begin confused upon admission but feels "clear" now. Tolerating IV antibiotics without adverse effect. No GI/ dysfunction. Nursing reports room air oxygen 87%. Objective - Vital Signs Vital Signs: Vital Signs - Last 24 Hrs Temp Pulse Pulse Resp BP BP Pulse Ox 10/06/16 14:19 90 20 96 10/06/16 10:23 88 18 87 L 10/06/16 09:00 88 16 10/06/16 08:13 97.6 F 88 16 144/76 94 L 10/06/16 05:00 97.9 F 90 18 165/85 98 10/06/16 00:00 97.5 F L 82 18 159/78 98 10/05/16 21:00 82 18 10/05/16 20:28 98.0 F 96 H 18 140/77 95 10/05/16 17:00 97.2 F L 100 H 16 161/74 97 - General General Appearance: Alert, Oriented x3, Cooperative, No acute distress Limitations: No limitations - Head Head exam: Atraumatic, Normocephalic, Normal inspection - Eye Eye exam: Normal appearance, PERRL - ENT Throat exam: Normal inspection. negative: Tonsillar erythema, Tonsillar exudate - Neck Neck exam: Normal inspection, Full ROM. negative: Tenderness - Respiratory Respiratory exam: Decreased breath sounds, Wheezes (base b/l, expiratory). negative: Normal lung sounds bilaterally, Respiratory distress - Cardiovascular Cardiovascular Exam: Regular rate, Normal rhythm, Normal heart sounds - GI/Abdominal GI/Abdominal exam: Soft, Normal bowel sounds. negative: Distended, Guarding, Rebound, Tenderness - Rectal Rectal exam: Deferred - exam: Deferred - Extremities Extremities exam: Normal inspection, Full ROM, Normal capillary refill. negative: Tenderness - Neurological Neurological exam: Alert, Oriented X3. negative: Motor sensory deficit, Normal gait - Psychiatric Psychiatric exam: Normal affect, Normal mood Assessment and Plan - Assessment and Plan (1) Altered mental status Current Visit: Yes Status: Acute Qualifiers: Altered mental status type: unspecified Qualified Code(s): R41.82 - Altered mental status, unspecified Base Code: R41.82 - ALTERED MENTAL STATUS , UNSPECIFIED Comment: 10/06/16: medication vs. infection vs. other? I suspect related to opiate abuse. Patient A&Ox3. Head CT negative. Denies opiate use (+ opiates in UDS) - AMS resolved, A&0 X 3, does not recall much surrounding admission - continue to treat infection - will monitor closely. (2) Cough Current Visit: Yes Status: Acute Base Code: R05 - COUGH Comment: 10/06/16: CXR: vascular congestion. WBC normalized. afebrile. Pulm exam suggestions fluid, COPD. Stopped smoking 1 week ago. - continue COPD meds - IV antibiotics changed to Levaquin for empiric pneumonia coverage with dx COPD (also is sensitive to urine via culture) - Due Neb treatments Q4H [place] - no LE edema - BNP elevated but improving, BNP today 2100 - SL IV, continue 20 mg of IV Lasix - will add mucinex 1200 mg bid - cardiology consult with echo today 2nd exacerbation CHF (3) DVT prophylaxis Current Visit: Yes Status: Acute Base Code: [id number] - Comment: 10/06/16: Lovenox 40 mg sq daily. encouraged ambulation as tolerated. (4) Elevated troponin Current Visit: Yes Status: Acute Base Code: R74.8 - ABNORMAL LEVELS OF OTHER SERUM ENZYMES Comment: 10/06/16: troponins trending down. EKG: old anteroseptal infart, sinus tach. CXR: vasc congestion. patient denies CP. No previous hx CHF, not established with a sheet layer - ischemia vs. fluid overload vs. 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 WBC normal Patient afebrile. She denies abdominal pain, dysuria, hematuria. Urine culture >100,000 e-coli - antibiotics changed to Levaquin (C&S) as well as empiric coverage of COPD exac - PO hydration Results - Labs Result Diagrams: 10/06/16 06:35 10/06/16 06:35 Labs Last 24 Hours: Laboratory Results - last 24 hr 10/06/16 10/06/16 10/06/16 06:35 06:35 06:35 WBC 7.9 RBC 4.23 Hgb 12.5 Hct 41.6 MCV 98.3 H MCH 29.6 MCHC 30.0 L RDW 14.5 Plt Count 339 MPV 9.6 Gran % 55.3 Lymphocytes % 29.7 Monocytes % 12.4 H Eosinophils % 2.0 Basophils % 0.6 Sodium 141 Potassium 4.0 Chloride 100 Carbon Dioxide 37.0 H Anion Gap 4.0 L BUN 20 H Creatinine 0.7 Estimated GFR > 60 Random Glucose 96 Calcium 8.4 L NT-Pro-B Natriuret Pep 2100.00 H TSH 44.50 H DVT/PE Assessment - Risk for VTE Risk for VTE: No Risk Level: Low Risk Assessment Date: 10/04/16 Risk Assessment Time: 10:00 VTE Orders Placed or Will Be Placed: Yes - Active Medicaitons Current Medications: Current Medications Acetaminophen (Tylenol 500mg Tab) 500 mg PO Q6H PRN PRN Reason: PAIN/TEMP Last Admin: 10/04/16 06:53 Dose: 500 mg Albuterol Sulfate () 2.5 mg INH Q4H PRN PRN Reason: DIFFICULTY IN BREATHING Albuterol/Ipratropium (Duoneb) 3 ml INH RESP.Q4H.[facility] Last Admin: 10/06/16 14:14 Dose: 3 ml Aspirin (Ecotrin (Ec)) 81 mg PO DAILY [facility] Last Admin: 10/06/16 09:46 Dose: 81 mg Budesonide (Pulmicort) 0.5 mg INH RESP.BID [facility] Last Admin: 10/06/16 06:00 Dose: 0.5 mg Duloxetine HCl (Cymbalta) 90 mg PO DAILY [facility] Last Admin: 10/06/16 09:45 Dose: 90 mg Enoxaparin Sodium (Lovenox) 40 mg SQ DAILY [facility] Last Admin: 10/06/16 09:47 Dose: 40 mg Furosemide (Lasix Iv) 20 mg IVP DAILY [facility] Last Admin: 10/06/16 09:46 Dose: 20 mg Gabapentin (Neurontin) 600 mg PO DAILY [facility] Last Admin: 10/06/16 09:48 Dose: 600 mg Gabapentin (Neurontin) 900 mg PO QHS [facility] Last Admin: 10/05/16 21:13 Dose: 900 mg Hydroxyzine Pamoate (Vistaril) 50 mg PO Q6H PRN PRN Reason: ANXIETY Last Admin: 10/04/16 09:54 Dose: 50 mg Levofloxacin (Levaquin Tab) 500 mg PO DAILY [facility] Last Admin: 10/06/16 09:46 Dose: 500 mg Levothyroxine S[facility] ([facility]throid) [facility] Meloxicam (Mobic) 15 mg PO QHS [facility] Last Admin: 10/05/16 21:11 Dose: 15 mg Nitrofurantoin Macrocrystals (Macrobid) 100 mg PO BID [facility] Last Admin: 10/06/16 09:47 Dose: 100 mg Ondansetron HCl (Zofran) 4 mg IVP Q4H PRN PRN Reason: NAUSEA Last Admin: 10/03/16 17:05 Dose: 4 mg Oxycodone/Acetaminophen (Percocet 10-325 Mg Tablet) 2 each PO Q6H PRN PRN Reason: Pain - Severe (8-10) Last Admin: 10/06/16 12:30 Dose: 2 each [facility]oprazole [facility] ([facility]) [facility] Last Admin: 10/06/16 06:14 Dose: 40 mg Tramadol HCl (Ultram) 50 mg PO Q6H PRN PRN Reason: Pain - General Tramadol HCl (Ultram) 100 mg PO Q6H PRN PRN Reason: Pain - General Last Admin: 10/04/16 15:07 Dose: 100 mg Trazodone HCl (Desyrel) 150 mg PO QHS [facility] Last Admin: 10/05/16 21:10 Dose: 150 mg AMI Plan - Labs Result Diagrams: 10/06/16 06:35 10/06/16 06:35
--- NOTE | 2016-10-06 20:09 | Discharge Summary ---
Providers Discharge Summary Date: 10/06/16 Date of admission: 10/03/16 16:18 Expected Date of Discharge: 10/06/16 Attending physician: MANI VICKERS Consults: Consult Orders 10/04/16 12:55 Consult - Cardiology NOW Consulting Provider: DOROTHY ARAYA Physician Instructions: Reason For Exam: elevated troponin, high bnp, old infarct on ekg Does pt have current laundry agent?: Not Established Physical Exam - Vital Signs Vital Signs: Vital Signs - Last 24 Hrs Temp Pulse Pulse Resp BP BP Pulse Ox 10/06/16 17:00 97.9 F 90 18 158/76 98 10/06/16 14:19 90 20 96 10/06/16 13:00 97.7 F 93 H 16 167/90 99 10/06/16 10:23 88 18 87 L 10/06/16 09:00 88 16 10/06/16 08:13 97.6 F 88 16 144/76 94 L 10/06/16 05:00 97.9 F 90 18 165/85 98 10/06/16 00:00 97.5 F L 82 18 159/78 98 10/05/16 21:00 82 18 10/05/16 20:28 98.0 F 96 H 18 140/77 95 - General General Appearance: Alert, Oriented x3, Cooperative, No acute distress Limitations: No limitations - Head Head exam: Atraumatic, Normocephalic, Normal inspection - Eye Eye exam: Normal appearance, PERRL - ENT Throat exam: Normal inspection. negative: Tonsillar erythema, Tonsillar exudate - Neck Neck exam: Normal inspection, Full ROM. negative: Tenderness - Respiratory Respiratory exam: Decreased breath sounds, Wheezes (base b/l, expiratory). negative: Normal lung sounds bilaterally, Respiratory distress - Cardiovascular Cardiovascular Exam: Regular rate, Normal rhythm, Normal heart sounds - GI/Abdominal GI/Abdominal exam: Soft, Normal bowel sounds. negative: Distended, Guarding, Rebound, Tenderness - Rectal Rectal exam: Deferred - exam: Deferred - Extremities Extremities exam: Normal inspection, Full ROM, Normal capillary refill. negative: Tenderness - Neurological Neurological exam: Alert, Oriented X3. negative: Motor sensory deficit, Normal gait - Psychiatric Psychiatric exam: Normal affect, Normal mood Hospitalization - Hospitalization Admission Diagnosis: AMS, CHF, elevated troponins - Problem List/Discharge Diagnosis (1) Altered mental status Current Visit: Yes Status: Acute Discharge Diagnosis: Altered mental status type: unspecified Qualified Code(s): R41.82 - Altered mental status, unspecified Base Code: R41.82 - ALTERED MENTAL STATUS , UNSPECIFIED Comment: 10/06/16: medication vs. infection vs. other? I suspect related to opiate abuse. Patient A&Ox3. Head CT negative. Denies opiate use (+ opiates in UDS) - AMS resolved, A&0 X 3, does not recall much surrounding admission - continue to treat infection - will monitor closely. (2) Cough Current Visit: Yes Status: Acute Base Code: R05 - COUGH Comment: 10/06/16: CXR: vascular congestion. WBC normalized. afebrile. Pulm exam suggestions fluid, COPD. Stopped smoking 1 week ago. - continue COPD meds - IV antibiotics changed to Levaquin for empiric pneumonia coverage with dx COPD (also is sensitive to urine via culture) - Due Neb treatments Q4H [place] - no LE edema - BNP elevated but improving, BNP today 2100 - SL IV, continue 20 mg of IV Lasix - will add mucinex 1200 mg bid - cardiology consult with echo today 2nd exacerbation CHF (3) DVT prophylaxis Current Visit: Yes Status: Acute Base Code: [id number] - Comment: 10/06/16: Lovenox 40 mg sq daily. encouraged ambulation as tolerated. (4) Elevated troponin Current Visit: Yes Status: Acute Base Code: R74.8 - ABNORMAL LEVELS OF OTHER SERUM ENZYMES Comment: 10/06/16: troponins trending down. EKG: old anteroseptal infart, sinus tach. CXR: vasc congestion. patient denies CP. No previous hx CHF, not established with a laundry agent - ischemia vs. fluid overload vs. other - telemetry- NSR, mild ST depression likely etiolgy chronic old anteriorseptal [place] - 20 mg of IV Lasix - cardiac, low sodium diet - cardiology consult today with Dr Samantha Araya - per recommendation will transfer to [facility] for Echo and cardiac (5) Full code status Current Visit: Yes Status: Acute Base Code: Z78.9 - OTHER SPECIFIED HEALTH STATUS Comment: 10/06/16: pt is full code (6) UTI (urinary tract infection) Current Visit: Yes Status: Acute Base Code: N39.0 - URINARY TRACT INFECTION, SITE NOT SPECIFIED Comment: 10/06/16: UA: trace leuks, 4+ bacteria. WBC normal Patient afebrile. She denies abdominal pain, dysuria, hematuria. Urine culture >100,000 e-coli - antibiotics changed to Levaquin (C&S) as well as empiric coverage of COPD exac - PO hydration - Hospitalization Course Disposition: Acute Care Hospital Transfer Hospital Course: 61 yo female admitted w/ AMS, UTI and URI. PMHx of COPD (non oxygen dependent) , smoker (quit 1 week ago, 1 ppd x 50 years), acid reflux, h/o TIA about 10 years ago, h/o etoh abuse, hypothyroidism, sleeping difficulty, anxiety, and LBP (h/o laminectomy). History obtained from patient who is A&O x 3 on exam. patient was brought into our ED by family for altered mental status. According to pt's ED documentation, patient had been experiencing weakness and confusion for one day. Family stated that pt had not had anything to drink for > 24 hours. Upon presentation, temp 98.1, HR 99, RR 18, BP 138/74, pulse ox 88. WBC 14.2, CO2 33.8, BUN 40, Cr 0.9, creatinine kinase 545, CK-MB 2.3, troponin 0.53, UA: trace leuks, pos nitrites, 4+ bacteria, UDS: opiates, TCA, cannabis. 0.[address]: NAP. CXR: CHF, vasc congestion. EKG: anteroseptal infarct, old. sinus tachy. Patient started on IV Cipro in the ER along with IVF 's. She was admitted for further medical management. 10/04/16: patient sitting up in bed comfortably. A&Ox3. NAD. States she's feeling better. She has a hard time telling me what brought her to the hospital. States she believes she was brought in for further evaluation of cough. Admits to productive cough w/ green/ yellow sputum. +red tinged sputum this am. Denies CP, fever, chills, SOB, abdominal pain, n/v/diarrhea, constipation, dysuria, hematuria, unintentional weight loss, OAKES, visual changes , and weakness. According to family, patient feel prior to arrival, however did not hit her head or experience any injuries. Denies any sick contacts, hospitalizations within the past 6 months or change in medications. no recent travel. Denies h/o [place]. H/O TIA 10 years ago per patient. Does not have a laundry agent. Opiates not on med list. Patient denies opiate use however UDS positive PCP: Jeancarlos Marlow Procedures: Imaging and X-Rays 10/04/16 17:53 ABDOMEN 1 VIEW [RAD] Stat Cardiology Procedures 10/03/16 18:40 EKG NOW 10/04/16 12:58 Echocardiogram 2D - Limited ONCE Abnormal Labs: Abnormal Lab Results 10/03/16 10/04/16 10/04/16 Range/Units 18:55 03:00 03:00 MCV 99.5 H (81-97) fl MCHC 30.2 L (32-36) g/dl RDW 14.9 H (11.5-14.5) % MPV 10.7 H (7.4-10.4) fl Monocytes % 12.4 H (0-9) % Carbon Dioxide 32.0 H (22-30) mmol/L Anion Gap 4.0 L (7-16) BUN 22 H (7-17) mg/dL Calcium 8.4 L (8.5-10.1) mg/dL Troponin I 0.044 H (0.00-0.034) ng/mL NT-Pro-B Natriuret Pep (<125) pg/mL Cholesterol (0-200) mg/dL LDL Cholesterol [place] (0-100) mg/dL TSH (0.465-4.68) uIU/ml 10/04/16 10/04/16 10/05/16 Range/Units 03:00 10:54 05:55 MCV 98.5 H (81-97) fl MCHC 30.5 L (32-36) g/dl RDW (11.5-14.5) % MPV 10.7 H (7.4-10.4) fl Monocytes % 17.0 H (0-9) % Carbon Dioxide (22-30) mmol/L Anion Gap (7-16) BUN (7-17) mg/dL Calcium (8.5-10.1) mg/dL Troponin I 0.040 H (0.00-0.034) ng/mL NT-Pro-B Natriuret Pep 4330.00 H (<125) pg/mL Cholesterol (0-200) mg/dL LDL Cholesterol [place] (0-100) mg/dL TSH (0.465-4.68) uIU/ml 10/05/16 10/05/16 10/06/16 Range/Units 05:55 05:55 06:35 MCV 98.3 H (81-97) fl MCHC 30.0 L (32-36) g/dl RDW (11.5-14.5) % MPV (7.4-10.4) fl Monocytes % 12.4 H (0-9) % Carbon Dioxide 36.5 H (22-30) mmol/L Anion Gap 4.5 L (7-16) BUN 22 H (7-17) mg/dL Calcium (8.5-10.1) mg/dL Troponin I (0.00-0.034) ng/mL NT-Pro-B Natriuret Pep (<125) pg/mL Cholesterol 203 H (0-200) mg/dL LDL Cholesterol [place] 140.0 H (0-100) mg/dL TSH (0.465-4.68) uIU/ml 10/06/16 10/06/16 Range/Units 06:35 06:35 MCV (81-97) fl MCHC (32-36) g/dl RDW (11.5-14.5) % MPV (7.4-10.4) fl Monocytes % (0-9) % Carbon Dioxide 37.0 H (22-30) mmol/L Anion Gap 4.0 L (7-16) BUN 20 H (7-17) mg/dL Calcium 8.4 L (8.5-10.1) mg/dL Troponin I (0.00-0.034) ng/mL NT-Pro-B Natriuret Pep 2100.00 H (<125) pg/mL Cholesterol (0-200) mg/dL LDL Cholesterol [place] (0-100) mg/dL TSH 44.50 H (0.465-4.68) uIU/ml Condition at Discharge: (3) Guarded Discharge Medications - Discharge Medications Home Medications: Ambulatory Orders Albuterol Sulfate [Ventolin Hfa] 1 - 2 puff IH .EVERY 4-6 HOURS PRN 07/11/14 [ Last Taken Unknown] Gabapentin [Neurontin] 600 mg PO TID 07/11/14 [Last Taken Unknown] Levothyroxine Sodium [Synthroid] 88 mcg PO DAILY 07/11/14 [Last Taken Unknown] Omeprazole [Prilosec] 20 mg PO DAILY 07/11/14 [Last Taken Unknown] Trazodone HCl [Desyrel] 50 mg PO QHS 07/11/14 [Last Taken Unknown] Duloxetine HCl [Cymbalta] 30 mg PO DAILY 03/05/16 [Last Taken Unknown] Ergocalciferol (Vitamin D2) [Vitamin D2] 100,000 unit PO WEEKLY 03/05/16 [Last Taken Unknown] Hydroxyzine Pamoate [Vistaril] 50 mg PO QID 03/05/16 [Last Taken Unknown] Mometasone/Formoterol [Dulera 100 Mcg/5 Mcg Inhaler] 2 puff IH BID 03/05/16 [ Last Taken Unknown] Nitrofurantoin [place] [Macrobid] 100 mg PO BID #10 capsule 03/06/16 [Last Taken Unknown] Aspirin [Aspir-Low] 81 mg PO DAILY 10/03/16 [Last Taken Unknown] Gabapentin [Neurontin] 400 mg PO TID 10/03/16 [Last Taken Unknown] Meloxicam [Mobic] 15 mg PO DAILY 10/03/16 [Last Taken Unknown] Discharge Plan - Discharge Instructions Activity at Discharge: Increase Activity as Tolerated Diet at Discharge: Low Fat, Low Cholesterol, Other (mechanical salt, 2L/24 hour fluid restriction)
[2016-10-07] MEDS ORDERED: LEVOTHYROXINE SODIUM 100 MCG TABLET PO SCH (07:00)
--- NOTE | 2016-10-07 10:21 | Medical Records Consult ---
DATE OF CONSULTATION: 10/06/2016 REFERRING PHYSICIAN: Pramod Sahu M.D. REASON FOR CONSULTATION: Elevated cardiac enzymes and congestive heart failure. HISTORY OF PRESENT ILLNESS: The patient is a delightful 60-year-old female who has a history of chronic back pain, who presented to the emergency department with complaints of shortness of breath and on-and-off chest pain. The shortness of breath has been progressively getting worse for 2 weeks prior to her presentation, to the point that she sought medical advice. The patient does not have any history of congestive heart failure or coronary artery disease. She also complains of pedal edema which was progressively getting worse prior to her presentation and with the administration of furosemide, her pedal edema has subsided and her shortness of breath has improved. The patient has had indeterminate troponin to 0.04 and also has had elevated CPKs but the MB fraction has been within normal limits. Her EKG has shown sinus tachycardia at 100 beats per minute with some nonspecific ST changes in the inferior leads as well as in the precordial leads. PAST MEDICAL HISTORY: Significant for COPD, chronic back pain, history of TIA, history of peptic ulcer disease and history of hyperthyroidism, and patient also said that she was diagnosed with a murmur and she also has a history of spinal stenosis. ALLERGIES: The patient is allergic to HALOPERIDOL and PENICILLIN. HOME MEDICATIONS: 1. Albuterol p.r.n. 2. Neurontin 600 mg p.o. t.i.d. 3. Levothyroxine 88 mcg daily. 4. Omeprazole 20 mg daily. 5. Trazodone 50 mg q.h.s. 6. Cymbalta 30 mg daily. 7. Vitamin D2, 100,000 units p.o. weekly. 8. Hydroxyzine 50 mg p.o. q.i.d. 9. Dulera 2 puffs b.i.d. 10. Asprin 81 mg daily. 11. Meloxicam 15 mg daily. SOCIAL HISTORY: The patient lives at home with her grandson who is her caregiver as well. She denies any illicit drug use. REVIEW OF SYSTEMS: The patient complains of chest pain on-and-off which had no relationship with exertion and has been going on for a couple of months. She also tells me that she had a syncopal episode a month ago for which she was taken to [facility] Emergency Department and she had to have stitches in her scalp. Denies any bleeding disorder. She does have a history of depression for which she had been taking medications. Denies any fevers or chills. She does not have a history of diabetes. PHYSICAL EXAMINATION VITAL SIGNS: Her blood pressure was 138/74 mmHg with a pulse ox 98% on 2 L. Her pulse ox was 88% on arrival. Temperature was 98.1 degrees Fahrenheit. GENERAL: The patient is a 60-year-old female who is alert and oriented x 3 and was talking on the phone when I entered the room. HEENT: Normocephalic and atraumatic. Pupils are equal and reactive to light. Extraocular muscles are intact. NECK: Supple. CVS: She has normal S1 and S2. There is no JVD. No pedal edema. RESPIRATORY: Lungs have bilateral crackles. IMAGING: Her chest x-ray shows pulmonary vascular congestion with mild cardiomegaly. LABORATORY DATA: Shows white count of 14.2 on arrival and a hemoglobin of 13.6, hematocrit of 44.6, platelet count of 335. Sodium 139, potassium 5.1, chloride 99, CO2 33.8, BUN 40, creatinine 0.9, blood glucose 95. ASSESSMENT AND PLAN: 1. Congestive heart failure. The patient has congestive heart failure causing her the shortness of breath. I agree with continuing her on Lasix and will start her on daily weight as well as strict I&O's. Once she is in compensated state, we will consider adding beta blockers as well as MICHAEL inhibitors. I would recommend doing an echocardiogram for further evaluation as well. However, since the patient has been having chest discomfort and also had undetermined troponin and also has new onset heart failure, I would recommend her to be transferred to the [facility] for further evaluation. I would consider doing an echocardiogram and if there is LV dysfunction or segmental wall motion abnormalities we will consider doing coronary angiography for further evaluation but if she had normal LV function and no segmental wall motion abnormalities are noticed, then we will consider doing a stress test for evaluation of ischemia as the etiology of her symptoms. This was explained to the patient who sounds understanding and wants to proceed with the plan of transfer. I discussed the transfer with Dr. Sahu as well who agrees with the plan. 2. History of COPD. The patient is on p.r.n. inhalers which will be continued. 3. Chronic back pain. 4. Urinary tract infection. The patient was started on Levaquin for UTI and will be kept on that for now. 5. History of hypothyroidism. She will be continued on thyroid supplementation. Violette Johnston MD CC: Brianne Houston
== END 2016-10-06 20:23 | disposition short-term general hospital (02) | DRG 690 ==
LOC: ER 13:31 → MEDSURG 16:18 → OBSVTOIN 16:18
PROVIDERS: ADMIT Family Medicine; ATTEND Family Medicine
DX: N39.0 Urinary tract infection, site not specified (principal); R41.82 Altered mental status, unspecified; F11.10 Opioid abuse, uncomplicated; F12.90 Cannabis use, unspecified, uncomplicated; J44.9 Chronic obstructive pulmonary disease, unspecified; I50.9 Heart failure, unspecified; R74.8 Abnormal levels of other serum enzymes; Z78.9 Other specified health status; E03.9 Hypothyroidism, unspecified; Z86.73 Personal history of transient ischemic attack (TIA), and cerebral infarction without residual deficits; M54.89 Other dorsalgia
CPT/HCPCS: 70450; 71020; 74000; 80048; 80061; 80305; 80320; 81001; 82550; 82553; 83880; 84443; 84484; 85025; 85027; 85610; 85730; 93005; 93010; 94761; 96361; 96374; 99223; 99233; 99239; 99285; J1650; J1885; J1940; J2405; J7030

== ENCOUNTER 2017-02-18 14:31 | Inpatient (IN) | payer MEDICAID ==
[2017-02-18] MEDS ORDERED: METHYLPREDNISOLONE PF 125MG/VIAL IVP ONE (15:04)
[2017-02-18] MEDS ORDERED: IPRATROPIUM/ALBUTEROL (0.5MG/3MG) NEB INH ONE (15:06)
--- NOTE | 2017-02-18 15:23 | Emergency Department Record ---
History of Present Illness - General Chief Complaint: Difficulty Breathing Stated Complaint: LILLIE,VOMITING Time Seen by Provider: 02/18/17 14:58 Source: Patient Mode of Arrival: Ambulatory Limitations: No limitations - History of Present Illness Initial Comments: The patient is here due to a 3-4 day hx of cough, congestion, green phlegm, and SOB. She also is having MONTERO and feels more SOB when lying flat. The patient has a hx of COPD and CHF. There is no CP but her chest does feel tight mildly at times. MD Complaint: Cough, Shortness of breath Onset/Timin -: Days(s) Consistency: Getting worse Improves With: Upright position Worsens With: Exertion, Lying flat Known History Of: Congestive heart failure Associated Symptoms: Other Treatments Prior to Arrival: None - Related Data Home Medications Medication Instructions Recorded Confirmed Last Taken Atorvastatin Calcium 20 mg PO DAILY 02/18/17 02/18/17 Unknown Furosemide 40 mg PO DAILY 02/18/17 02/18/17 Unknown Metoprolol Succinate [Toprol Xl] 25 mg PO DAILY 02/18/17 02/18/17 Unknown Potassium Chloride [Klor-Con M20] 20 meq PO 1200 02/18/17 02/18/17 Unknown Tiotropium [place] [Spiriva] 1 inh INH DAILY 02/18/17 02/18/17 02/18/17 Allergies Allergy/AdvReac Type Severity Reaction Status Date / Time haloperidol [From Haldol] Allergy SWELLING Verified 02/18/17 14:45 OF THE TONGUE haloperidol lactate Allergy SWELLING Verified 02/18/17 14:45 [From Haldol] OF THE TONGUE Penicillins Allergy HIVES Verified 02/18/17 14:45 Travel Screening - Travel/Exposure Within Last 30 Days Have you traveled within the last 30 days?: No - Travel/Exposure Within Last Year Have you traveled outside the [place] in the last year?: No - Additonal Travel Details Have you been exposed to anyone with a communicable illness?: No - Travel Symptoms Symptom Screening: None Review of Systems Constitutional: Denies: Chills, Fever Eyes: Denies: Eye discharge ENT: Denies: Congestion Respiratory: Reports: Cough, Dyspnea Cardiovascular: Denies: Arrhythmia Endocrine: Reports: Fatigue Gastrointestinal: Reports: Vomiting Genitourinary: Denies: Dysuria Musculoskeletal: Denies: Back pain Past Medical History - SOCIAL HISTORY Smoking Status: Current every day smoker Alcohol Use: Occasional Drug Use Detail:: Marijuana - RESPIRATORY Hx Respiratory Disorders: Yes Hx COPD: Yes - CARDIOVASCULAR Hx Cardio Disorders: Yes Hx CHF: Yes Comment:: leaky mitral and aortic valve - NEURO Hx Neuro Disorders: Yes Hx Dizziness: Yes Hx Seizures: No Hx TIA: Yes - GI Hx GI Disorders: Yes Hx Reflux: Yes Hx Ulcer: Yes - Hx Genitourinary Disorders: Yes Hx UTI: Yes Comment:: interstitial cystitis - ENDOCRINE Hx Endocrine Disorders: Yes Hx Thyroid Disease: Yes (hyper) - MUSCULOSKELETAL Hx Musculoskeletal Disorders: Yes Hx Arthritis: Yes Hx Back Injury: Yes (ruptured disks in neck and lower back) Comment:: stenosis of the spine - PSYCH Hx Psych Problems: Yes Hx Anxiety: Yes - HEMATOLOGY/ONCOLOGY Hx Hematology/Oncology Disorders: No Family Medical History Any Significant Family History?: Yes Hx Cancer: Father Physical Exam - General General Appearance: Alert, Cooperative, No acute distress - Head Head exam: Atraumatic, Normocephalic - Eye Eye exam: Normal appearance, PERRL - Neck Neck exam: Normal inspection, Full ROM. negative: Tenderness - Respiratory Respiratory exam: Decreased breath sounds, Wheezes (at the bases.). negative: Normal lung sounds bilaterally - Cardiovascular Cardiovascular Exam: Regular rate, Normal rhythm, Normal heart sounds - GI/Abdominal GI/Abdominal exam: Soft, Normal bowel sounds. negative: Tenderness - Extremities Extremities exam: Normal inspection, Full ROM, Normal capillary refill. negative: Calf tenderness, Pedal edema, Tenderness - Neurological Neurological exam: Alert, Normal gait. negative: Abnormal gait, Motor sensory deficit Course Vital Signs 02/18/17 14:48 Temperature 98.6 F Pulse Rate 109 H Respiratory 20 Rate Blood Pressure 117/42 Pulse Ox 89 L - Reevaluation(s) Reevaluation #1: The patient is doing a lot better at this time. Her breathing is improved and her O2 sats are mid 90's on 2 liters of oxygen. I did discuss the issues with the patient and did recommend hospital admission and she did agree. I then did discuss the case with Germania GONZALEZ) and she does accept the admission for Dr. Kearney. 02/18/17 17:10 Medical Decision Making - Data Complexity MDM Data: Labs Ordered and/or Reviewed, X-Ray Ordered and/or Reviewed, EKG Ordered and/or Reviewed - Lab Data Result diagrams: 02/18/17 15:20 02/18/17 15:20 - EKG Data -: EKG Interpreted by Me EKG: No Acute Changes - Radiology Data Radiology results: Report reviewed (CXR: No acute changes per Rad.) Disposition Disposition: Admit Clinical Impression: COPD exacerbation Disposition: Still a Patient at [facility] Decision to Admit: Admit from ER Decision to Admit Date: 02/18/17 Decision to Admit Time: 17:12 Accepting Physician: Christel Time Discussed w/Accepting Physician: 17:12 Condition: (2) Stable Time of Disposition: 17:12 Quality - Quality Measures Quality Measures: N/A - Blood Pressure Screening View Details: Yes Does Patient Have Any of the Following: No Blood Pressure Classification: Normal BP Reading Systolic Measurement: 118 Diastolic Measurement: 56 Screening for High Blood Pressure: < Normal BP, F/U Not Required > [[id number]]
[2017-02-18 15:38] LABS: HEMOGLOBIN 12.4 gm/dl (11.6-16.0); MEAN CORPUSCULAR HEMOGLOBIN 29.9 pg (27-33); MEAN CORPUSCULAR HGB CONC 31.8 g/dl (32-36); MEAN PLATELET VOLUME 10.8 fl (7.4-10.4); PLATELET COUNT 281 K/uL (130-400); RED BLOOD COUNT 4.15 M/uL (3.80-5.40); RED CELL DISTRIBUTION WIDTH 15.3 % (11.5-14.5); WHITE BLOOD COUNT W/O DIFF 14.2 K/uL (4.2-12.2)
[2017-02-18 15:48] LABS: PLATELET ESTIMATE NORMAL (NORMAL)
[2017-02-18 15:51] LABS: ALB/GLOB RATIO 1.3 (1.1-1.8); ALKALINE PHOSPHATASE 118 U/L (38-126); ALT/SGPT 33 U/L (9-52); ANION GAP 10.5 (7-16); AST/SGOT 14 U/L (14-36); BILIRUBIN,TOTAL 0.82 mg/dL (0.2-1.3); BLOOD UREA NITROGEN 17 mg/dL (7-17); CARBON DIOXIDE 32.5 mmol/L (22-30); EST GLOMERULAR FILTRATION RATE 60 ml/min; GLUCOSE,RANDOM 153 mg/dL (70-110); TOTAL PROTEIN 7.1 gm/dL (6.3-8.2)
[2017-02-18 16:05] LABS: TROPONIN I < 0.012 ng/mL (0.00-0.034)
[2017-02-18] MEDS ORDERED: FUROSEMIDE IV 40MG/4ML VIAL IVP ONE (16:45)
[2017-02-18] MEDS ORDERED: POTASSIUM CHLORIDE 20 MEQ TABLET PO ONE (16:45)
[2017-02-18] MEDS ORDERED: DOXYCYCLINE HYCLATE 100 MG CAPSULE PO ONE (17:09)
[2017-02-18] MEDS ORDERED: ACETAMINOPHEN 500 MG TABLET PO PRN (17:58)
[2017-02-18] MEDS ORDERED: IPRATROPIUM/ALBUTEROL (0.5MG/3MG) NEB INH PRN (17:58)
[2017-02-18] MEDS ORDERED: ALBUTEROL SULFATE (0.083%) 2.5 MG/3 ML NEB INH PRN (18:40)
[2017-02-18] MEDS: HYDROXYZINE PAMOATE 25 MG CAPSULE PO SCH ×2 (19:52→21:22)
[2017-02-18] MEDS: GABAPENTIN 100 MG CAPSULE PO SCH (19:52)
[2017-02-18] MEDS: GABAPENTIN 300 MG CAPSULE PO SCH ×2 (19:52→21:23)
[2017-02-18] MEDS: MELOXICAM 7.5 MG TABLET PO SCH (21:22)
[2017-02-18] MEDS: DOXYCYCLINE HYCLATE 100 MG CAPSULE PO SCH (21:23)
[2017-02-18] MEDS: TRAZODONE 50 MG TABLET PO SCH (21:23)
[2017-02-18] MEDS: MELATONIN 5 MG TABLET PO PRN (21:39)
[2017-02-18] MEDS: IPRATROPIUM/ALBUTEROL (0.5MG/3MG) NEB INH SCH (21:59)
[2017-02-18] MEDS ORDERED: GABAPENTIN 300 MG CAPSULE PO SCH (22:00)
[2017-02-18] MEDS ORDERED: TRAZODONE 50 MG TABLET PO SCH (22:00)
[2017-02-19] MEDS: GABAPENTIN 100 MG CAPSULE PO SCH ×3 (06:32→16:40)
[2017-02-19] MEDS: LEVOTHYROXINE SODIUM 88 MCG TABLET PO SCH (06:32)
[2017-02-19] MEDS: IPRATROPIUM/ALBUTEROL (0.5MG/3MG) NEB INH SCH ×5 (06:32→21:52)
[2017-02-19] MEDS: PANTOPRAZOLE SODIUM 40 MG TABLET PO SCH ×2 (06:33→16:40)
[2017-02-19] MEDS: GABAPENTIN 300 MG CAPSULE PO SCH ×4 (06:33→21:01)
[2017-02-19] MEDS: HYDROXYZINE PAMOATE 25 MG CAPSULE PO SCH ×4 (06:33→21:02)
[2017-02-19 06:38] LABS: HEMATOCRIT 36.3 % (35.0-47.0); HEMOGLOBIN 11.8 gm/dl (11.6-16.0); MEAN CELL VOLUME 93.1 fl (81-97); MEAN CORPUSCULAR HEMOGLOBIN 30.3 pg (27-33); MEAN CORPUSCULAR HGB CONC 32.5 g/dl (32-36); MEAN PLATELET VOLUME 10.8 fl (7.4-10.4); PLATELET COUNT 294 K/uL (130-400); RED CELL DISTRIBUTION WIDTH 14.9 % (11.5-14.5); WHITE BLOOD COUNT W/O DIFF 10.7 K/uL (4.2-12.2)
[2017-02-19] MEDS: DULOXETINE HCL 30 MG CAPSULE.DR PO SCH (09:48)
[2017-02-19] MEDS: ASPIRIN 81 MG TABEC PO SCH (09:50)
[2017-02-19] MEDS: DOXYCYCLINE HYCLATE 100 MG CAPSULE PO SCH ×2 (09:50→21:03)
[2017-02-19] MEDS: METOPROLOL SUCC 25 MG TAB.ER PO SCH (09:52)
[2017-02-19] MEDS: ATORVASTATIN 20 MG TABLET PO SCH (09:52)
[2017-02-19] MEDS: METHYLPREDNISOLONE PF 125MG/VIAL IVP SCH (09:54)
[2017-02-19] MEDS ORDERED: Non-Formulary MISC (Omeprazole 20 MG) PO SCH (10:00)
[2017-02-19] MEDS ORDERED: DULOXETINE HCL 30 MG CAPSULE.DR PO SCH (10:00)
[2017-02-19] MEDS ORDERED: FUROSEMIDE IV 20MG/2ML VIAL IVP SCH (10:00)
--- NOTE | 2017-02-19 10:24 | History & Physical ---
History of Present Illness - Date of Service Date of Service for History & Physical: 02/19/17 - History of Present Illness Admitting Diagnosis: 1. COPD exacerbation. History of Present Illness: Ms. Nix is a 64 y/ o female with known history of advanced COPD, HFpEf 60- 65%, and hypothyroidism who presents with progressive shortness of breath since 01/19/2017. The patient was evaluated at [facility] on 01/15 and as per the patient was diagnosed with a urinary tract infection and pneumonia. She was discharged on PO antibiotics and she reports compliance and completion of medication course. Today she notes that her symptoms never really quite resolved and she has experienced increasing shortness of breath, cough productive of yellow-green phelgm, chest tightness, 2 episodes of nausea/vomiting and dizziness. She does not have home oxygen requirement but does have an albuterol nebulizer which she tried without improvement is symptoms. In addition, she admits to continued smoking despite her diagnosis of advanced COPD. On arrival to the ED the patient 's chest xray was not suggestive of pneumonia and she was started on treatment for acute COPD exacerbation. On bedside examination the patient is alert, oriented, breathing comfortably and does not appear to be in distress at this time. She is a good historian and able to participate meaningfully in examination. The patient is known to our system of and was last seen in August of this year with complaint of shortness of breath. She was transferred to [facility] and underwent, 2D echo and cardiac catheterization which showed preserved EF and clean coronaries respectively. Travel Screening - Travel/Exposure Within Last 30 Days Have you traveled within the last 30 days?: No - Travel/Exposure Within Last Year Have you traveled outside the [place] in the last year?: No - Additonal Travel Details Have you been exposed to anyone with a communicable illness?: No - Travel Symptoms Symptom Screening: None Review of Systems Constitutional: Denies: Chills, Fever Eyes: Denies: Eye discharge ENT: Denies: Congestion Respiratory: Reports: Cough, Dyspnea, Wheezes Cardiovascular: Reports: Chest pain, Murmurs Endocrine: Reports: Fatigue Gastrointestinal: Reports: Vomiting (2-3 episodes of non-bilous/bloody ) Genitourinary: Denies: Dysuria Musculoskeletal: Reports: Back pain (chronic back pain s/p laminectomy) Skin: Reports: Bruising Neurological: Reports: As per HPI Psychiatric: Denies: Anxiety, Depression Hematological/Lymphatic: Denies: Anemia Past Medical History - SOCIAL HISTORY Smoking Status: Current every day smoker Alcohol Use: Occasional Drug Use Detail:: Marijuana - RESPIRATORY Hx Respiratory Disorders: Yes Hx COPD: Yes - CARDIOVASCULAR Hx Cardio Disorders: Yes Hx CHF: Yes Comment:: leaky mitral and aortic valve - NEURO Hx Neuro Disorders: Yes Hx Dizziness: Yes Hx Seizures: No Hx TIA: Yes - GI Hx GI Disorders: Yes Hx Reflux: Yes Hx Ulcer: Yes - Hx Genitourinary Disorders: Yes Hx UTI: Yes Comment:: interstitial cystitis - ENDOCRINE Hx Endocrine Disorders: Yes Hx Thyroid Disease: Yes (hyper) - MUSCULOSKELETAL Hx Musculoskeletal Disorders: Yes Hx Arthritis: Yes Hx Back Injury: Yes (ruptured disks in neck and lower back) Comment:: stenosis of the spine - PSYCH Hx Psych Problems: Yes Hx Anxiety: Yes - HEMATOLOGY/ONCOLOGY Hx Hematology/Oncology Disorders: No Family Medical History Any Significant Family History?: Yes Hx Cancer: Father (Renal Ca) H&P Meds/Allergies - Allergies Allergies: Allergies Allergy/AdvReac Type Severity Reaction Status Date / Time haloperidol [From Haldol] Allergy SWELLING Verified 02/18/17 14:45 OF THE TONGUE haloperidol lactate Allergy SWELLING Verified 02/18/17 14:45 [From Haldol] OF THE TONGUE Penicillins Allergy HIVES Verified 02/18/17 14:45 - Home Medications Home Medications Medication Instructions Recorded Confirmed Last Taken Atorvastatin Calcium 20 mg PO DAILY 02/18/17 02/18/17 Unknown Metoprolol Succinate [Toprol Xl] 25 mg PO DAILY 02/18/17 02/18/17 Unknown Potassium Chloride [Klor-Con M20] 20 meq PO QPM 02/18/17 02/18/17 Unknown Tiotropium Stuart [Spiriva] 1 inh INH DAILY 02/18/17 02/18/17 02/18/17 Furosemide [Lasix] 20 mg PO DAILY 02/19/17 02/19/17 Unknown - Active Medications Active Medications: Current Medications Acetaminophen (Tylenol 500mg Tab) 500 mg PO Q6H PRN PRN Reason: PAIN/TEMP Albuterol Sulfate () 2.5 mg INH Q4H PRN PRN Reason: SHORTNESS OF BREATH Albuterol/Ipratropium (Duoneb) 3 ml INH RESP.Q4H.WA [facility] Last Admin: 02/19/17 06:32 Dose: 3 ml Aspirin (Ecotrin (Ec)) 81 mg PO DAILY [facility] Last Admin: 02/19/17 09:50 Dose: 81 mg Atorvastatin Calcium (Lipitor) 20 mg PO DAILY [facility] Last Admin: 02/19/17 09:52 Dose: 20 mg Doxycycline Hyclate (Vibramycin) 100 mg PO BID [facility] Last Admin: 02/19/17 09:50 Dose: 100 mg Duloxetine HCl (Cymbalta) 90 mg PO DAILY [facility] Last Admin: 02/19/17 09:48 Dose: 90 mg Furosemide (Lasix) 20 mg PO DAILY [facility] Gabapentin (Neurontin) 300 mg PO TIDAC [facility] Last Admin: 02/19/17 06:33 Dose: 300 mg Gabapentin (Neurontin) 600 mg PO QHS [facility] Last Admin: 02/18/17 21:23 Dose: 600 mg Gabapentin (Neurontin) 100 mg PO TIDAC [facility] Last Admin: 02/19/17 06:32 Dose: 100 mg Hydroxyzine Pamoate (Vistaril) 50 mg PO QIDACHS [facility] Last Admin: 02/19/17 06:33 Dose: 50 mg Levothyroxine Sodium (Synthroid) 88 mcg PO DAILYTHY [facility] Last Admin: 02/19/17 06:32 Dose: 88 mcg Melatonin (Melatonin) 5 mg PO QHS PRN PRN Reason: SLEEP Last Admin: 02/18/17 21:39 Dose: 5 mg Meloxicam (Mobic) 15 mg PO QHS [facility] Last Admin: 02/18/17 21:22 Dose: 15 mg Methylprednisolone Sodium Succinate (Solu-Medrol) 60 mg IVP DAILY [facility] Last Admin: 02/19/17 09:54 Dose: 60 mg Metoprolol Succinate (Toprol Xl) 25 mg PO DAILY [facility] Last Admin: 02/19/17 09:52 Dose: 25 mg Pantoprazole Sodium (Protonix) 40 mg PO BIDAC [facility] Last Admin: 02/19/17 06:33 Dose: 40 mg Potassium Chloride (Klor-Con) 20 meq PO 1200 ROBERT Trazodone HCl (Desyrel) 150 mg PO QHS [facility] Last Admin: 02/18/17 21:23 Dose: 150 mg Physical Exam - Vital Signs Vital Signs: Vital Signs - Last 24 Hrs Temp Pulse Pulse Resp BP BP Pulse Ox 02/18/17 21:00 97.5 F L 99 H 20 128/66 96 02/18/17 18:32 20 02/18/17 17:50 98.5 F 106 H 22 130/62 93 L 02/18/17 17:25 108 H 18 118/56 95 - General General Appearance: Alert, Cooperative, No acute distress Limitations: No limitations - Head Head exam: Atraumatic, Normocephalic - Eye Eye exam: Normal appearance, PERRL - ENT ENT exam: Mucous membranes moist Nasal Exam: Normal inspection - Neck Neck exam: Normal inspection, Full ROM. negative: Tenderness - Respiratory Respiratory exam: Decreased breath sounds, Wheezes (at the bases.). negative: Normal lung sounds bilaterally - Cardiovascular Cardiovascular Exam: Regular rate, Normal rhythm, Normal heart sounds, Systolic murmur (, MR ) Peripheral Pulses: 2+: Radial (R), Radial (L), Dorsalis Pedis (R), Dorsalis Pedis (L) - GI/Abdominal GI/Abdominal exam: Soft, Normal bowel sounds. negative: Tenderness - Extremities Extremities exam: Normal inspection, Full ROM, Normal capillary refill. negative: Calf tenderness, Pedal edema, Tenderness - Back Back exam: Reports: Normal inspection, Tenderness - Neurological Neurological exam: Alert, Normal gait. negative: Abnormal gait, Motor sensory deficit - Psychiatric Psychiatric exam: negative: Agitated, Depressed - Skin Skin exam: Dry, Warm Results - Labs Result Diagrams: 02/19/17 06:12 02/18/17 15:20 Labs Last 24 Hours: Laboratory Results - last 24 hr 02/19/17 06:12 WBC 10.7 RBC 3.90 Hgb 11.8 Hct 36.3 MCV 93.1 MCH 30.3 MCHC 32.5 RDW 14.9 H Plt Count 294 MPV 10.8 H Neutrophils % 91.0 H Eosinophils % Not Reportable Basophils % Not Reportable Lymphocytes 4.0 L Monocytes 5.0 VTE H&P Assessment - Risk for VTE Risk for VTE: Yes Risk Level: Moderate Risk Assessment Date: 02/19/17 Risk Assessment Time: 10:41 VTE Orders Placed or Will Be Placed: Yes Plan - Detailed Diagnosis and Plan (1) COPD exacerbation Plan: Summary: patient presents with progressive shortness of breath productive cough and chest pain. - CXR - suggestive of advanced COPD, 7mm left upper lung nodule stable in comparison to previous imaging. No opacities or infiltrates noted. - titrate O2 to keep sats > 92%, elevate head of bed 30 degrees, incentive spirometry at bedside. - cont patient on Albuterol/Spiriva duonebs Q4H, Solumedrol 60mg IVP Q24H, Doxycline 100mg Q12H. - sputum G/C pending, home O2 assessment prior to D/C/ - seasonal influenza vaccine, 23 Pneumovax on discharge. Current Visit: Yes Status: Acute Base Code: J44.1 - CHRONIC OBSTRUCTIVE PULMONARY DISEASE W (ACUTE) EXACERBATION (2) (HFpEF) heart failure with preserved ejection fraction Plan: - Echo 10/06/16 shows preserved EF 60-65%, pseudonormal filling pattern. Clinical : pt describes orthopnea, PND - Cardiac catheterization 09/2016 - no significant ischemic changes reported. - cont patient on Toprolol XL 25mg QD, ASA 81mg, Lasix 20mg PO QD, Atorvastatin 40mg QD. Current Visit: Yes Status: Acute Base Code: I50.30 - UNSPECIFIED DIASTOLIC ( CONGESTIVE) HEART FAILURE (3) Hypothyroidism Plan: - will check TSH. Last TSH 44.5 - cont Levothyroxine 100mcg QD, will adjust as appropriate. Current Visit: Yes Status: Chronic Qualifiers: Hypothyroidism type: unspecified Qualified Code(s): E03.9 - Hypothyroidism , unspecified Base Code: E03.9 - HYPOTHYROIDISM, UNSPECIFIED (4) Chronic back pain Plan: - as per patient she has had a laminectomy, no imaging in our system. - home medications include: Gabapentin 300mg TID, Meloxicam 15mg QD. Will continue as per home doses. Current Visit: Yes Status: Chronic Qualifiers: Back pain location: low back pain Back pain laterality: bilateral Sciatica presence: without sciatica Qualified Code(s): M54.5 - Low back pain; G89.29 - Other chronic pain Base Code: M54.9 - DORSALGIA, UNSPECIFIED; G89.29 - OTHER CHRONIC PAIN (5) DVT prophylaxis Current Visit: No Status: Acute Base Code: [id number] - Comment: 10/06/16: Lovenox 40 mg sq daily. encouraged ambulation as tolerated. (6) Full code status Plan: - FULL CODE Current Visit: No Status: Acute Base Code: Z78.9 - OTHER SPECIFIED HEALTH STATUS Comment: 10/06/16: pt is full code (7) Inpatient admission status Plan: Inpatient certification: The patient meets criteria for upgrade to inpatient status based on clinical condition. Admitting diagnosis being Acute COPD exacerbation. Current Visit: Yes Status: Acute Base Code: [id number] - Priority: High - Disposition Anticipated length of stay: 1-2 days. S/W consult appreciated to address outpatient follow up, and home oxygen if required.
[2017-02-19] MEDS: POTASSIUM CHLORIDE 20 MEQ TABLET PO SCH (11:29)
[2017-02-19] MEDS: NICOTINE14 MG/24 HOUR PATCH TD SCH (11:30)
--- NOTE | 2017-02-19 16:17 | RADIOLOGY REPORT ---
EXAM: CHEST 2 VIEWS HISTORY: CHRONIC PRODUCTIVE COUGH. CHF, TYPE NONSPECIFIED. TECHNIQUE: Two-view chest. COMPARISON: Chest x-ray, 10/03/2016. FINDINGS: Lungs are clear with no overt pulmonary edema. Cardiac silhouette, diaphragm, and osseous structures are unremarkable. Small nodule in the right upper lung measuring 7 mm, unchanged from 2015, consistent with benign process. IMPRESSION: 1. NO ACUTE INTRATHORACIC PROCESS. RESOLUTION OF PULMONARY VENOUS HYPERTENSION. 2. BENIGN LUNG NODULE, RIGHT UPPER LUNG. JOB NUMBER: [id number] MTDD
[2017-02-19] MEDS: MELOXICAM 7.5 MG TABLET PO SCH (21:03)
[2017-02-19] MEDS: TRAZODONE 50 MG TABLET PO SCH (21:03)
[2017-02-19] MEDS: MELATONIN 5 MG TABLET PO PRN (21:10)
[2017-02-20] MEDS: IPRATROPIUM/ALBUTEROL (0.5MG/3MG) NEB INH SCH ×3 (05:44→10:15)
[2017-02-20] MEDS: LEVOTHYROXINE SODIUM 88 MCG TABLET PO SCH (06:33)
[2017-02-20] MEDS: GABAPENTIN 100 MG CAPSULE PO SCH ×2 (06:33→11:12)
[2017-02-20] MEDS: HYDROXYZINE PAMOATE 25 MG CAPSULE PO SCH ×2 (06:33→11:12)
[2017-02-20] MEDS: GABAPENTIN 300 MG CAPSULE PO SCH ×2 (06:33→11:12)
[2017-02-20] MEDS: PANTOPRAZOLE SODIUM 40 MG TABLET PO SCH (06:34)
--- NOTE | 2017-02-20 09:31 | Discharge Summary ---
Providers Discharge Summary Date: 02/20/17 Date of admission: 02/18/17 17:23 Expected Date of Discharge: 02/20/17 Attending physician: MANI VICKERS Physical Exam - Vital Signs Vital Signs: Vital Signs - Last 24 Hrs Temp Pulse Pulse Resp BP Pulse Ox 02/20/17 05:44 85 15 99 02/19/17 21:54 81 16 98 02/19/17 20:00 98.2 F 98 H 20 145/72 97 02/19/17 17:56 78 81 H 15 L 02/19/17 17:00 98.6 F 96 H 18 128/60 97 02/19/17 13:55 101 H 15 97 02/19/17 10:21 112 H 26 H 96 02/19/17 10:16 112 H 26 H 96 - General General Appearance: Alert, Cooperative, No acute distress Limitations: No limitations - Head Head exam: Atraumatic, Normocephalic - Eye Eye exam: Normal appearance, PERRL - ENT ENT exam: Mucous membranes moist Nasal Exam: Normal inspection - Neck Neck exam: Normal inspection, Full ROM. negative: Tenderness - Respiratory Respiratory exam: Decreased breath sounds (improving), Wheezes (at the bases.). negative: Normal lung sounds bilaterally, Respiratory distress - Cardiovascular Cardiovascular Exam: Regular rate, Normal rhythm, Normal heart sounds, Systolic murmur (, MR ) Peripheral Pulses: 2+: Radial (R), Radial (L), Dorsalis Pedis (R), Dorsalis Pedis (L) - GI/Abdominal GI/Abdominal exam: Soft, Normal bowel sounds. negative: Tenderness - Rectal Rectal exam: Deferred - exam: Deferred - Extremities Extremities exam: Normal inspection, Full ROM, Normal capillary refill. negative: Calf tenderness, Pedal edema, Tenderness - Back Back exam: Reports: Normal inspection, Tenderness - Neurological Neurological exam: Alert, Normal gait. negative: Abnormal gait, Motor sensory deficit - Psychiatric Psychiatric exam: negative: Agitated, Depressed - Skin Skin exam: Dry, Warm Hospitalization - Hospitalization Admission Diagnosis: 1. COPD exacerbation. - Problem List/Discharge Diagnosis (1) COPD exacerbation Status: Acute Base Code: J44.1 - CHRONIC OBSTRUCTIVE PULMONARY DISEASE W ( ACUTE) EXACERBATION Comment: 02/20/17: patient's sob has significantly improved. CXR: suggestive of COPD, 7mm left upper lung nodule, stable in comparison to previous. - smoking cessation highly encouraged. - sputum cx pending - did not qualify for home O2 - continue duo neb Q4H, steroid, Doxycycline 100 mg BID - Pneumovax upon d/c (2) (HFpEF) heart failure with preserved ejection fraction Status: Acute Base Code: I50.30 - UNSPECIFIED DIASTOLIC (CONGESTIVE) HEART FAILURE Comment: 02/20/17: Continue Toprolol XL 25 mg daily, baby ASA, Lasix 20 mg PO daily, potassium supplementation, atorvastatin 40 mg daily (3) Chronic back pain Status: Chronic Discharge Diagnosis: Back pain location: low back pain Back pain laterality: bilateral Sciatica presence: without sciatica Qualified Code(s): M54.5 - Low back pain; G89.29 - Other chronic pain Base Code: M54.9 - DORSALGIA, UNSPECIFIED; G89.29 - OTHER CHRONIC PAIN Comment : 02/20/17: chronic, unchanged. continue home medications. UA: trace leuks, 1+ bacteria. Urine culture pending. (4) Hypothyroidism Status: Chronic Discharge Diagnosis: Hypothyroidism type: unspecified Qualified Code(s): E03.9 - Hypothyroidism , unspecified Base Code: E03.9 - HYPOTHYROIDISM, UNSPECIFIED Comment: 02/20/17: resume 88mcg of levothyroxine daily. patient will continue to follow up with her pcp re this. (5) Full code status Status: Acute Base Code: Z78.9 - OTHER SPECIFIED HEALTH STATUS Comment: : pt remained full code - Hospitalization Course Disposition: Home, Self-Care Hospital Course: Ms. Nix is a 64 y/ o female with known history of advanced COPD, HFpEf 60- 65%, and hypothyroidism who presents with progressive shortness of breath since 01/19/2017. The patient was evaluated at [facility] on 01/15 and as per the patient was diagnosed with a urinary tract infection and pneumonia. She was discharged on PO antibiotics and she reports compliance and completion of medication course. Today she notes that her symptoms never really quite resolved and she has experienced increasing shortness of breath, cough productive of yellow-green phelgm, chest tightness, 2 episodes of nausea/vomiting and dizziness. She does not have home oxygen requirement but does have an albuterol nebulizer which she tried without improvement is symptoms. In addition, she admits to continued smoking despite her diagnosis of advanced COPD. On arrival to the ED the patient 's chest xray was not suggestive of pneumonia and she was started on treatment for acute COPD exacerbation. On bedside examination the patient is alert, oriented, breathing comfortably and does not appear to be in distress at this time. She is a good historian and able to participate meaningfully in examination. The patient is known to our system of and was last seen in August of this year with complaint of shortness of breath. She was transferred to [facility] and underwent, 2D echo and cardiac catheterization which showed preserved EF and clean coronaries respectively. 02/20/17- patient sitting up in bed comfortably. states she's feeling much better than when she came in. denies sob, fever, chill, n/v, abd pain, dysuria , hematuria. cough, yellow sputum- culture pending. LBP present, though chronic. she has not left a urine cx yet today. ambulating to the restroom. will need home o2 qualification completed prior to d/c. Abnormal Labs: Abnormal Lab Results 02/19/17 Range/Units 06:12 RDW 14.9 H (11.5-14.5) % MPV 10.8 H (7.4-10.4) fl Neutrophils % 91.0 H (47-80) % Lymphocytes 4.0 L (16-45) % Condition at Discharge: (2) Stable Discharge Medications - Discharge Medications Prescriptions: Doxycycline Hyclate [Vibramycin] 100 mg PO BID #12 Ipratropium/Albuterol [Duoneb] 3 ml INH RESP.Q4H.WA #120 Prednisone [Prednisone 20Mg] 20 mg PO DAILY #13 tab Home Medications: Ambulatory Orders Albuterol Sulfate [Ventolin Hfa] 2 puff INH RESP.Q4H.WA 07/11/14 [Last Taken 12/28] Gabapentin [Neurontin] 600 mg PO QHS 07/11/14 [Last Taken 02/18/17] Levothyroxine Sodium [Synthroid] 88 mcg PO DAILY 07/11/14 [Last Taken 02/18/17] Omeprazole [Prilosec] 20 mg PO DAILYAC 07/11/14 [Last Taken 02/18/17] Trazodone HCl [Desyrel] 150 mg PO QHS 07/11/14 [Last Taken 02/18/17] Duloxetine HCl [Cymbalta] 90 mg PO DAILY 03/05/16 [Last Taken 02/18/17] Ergocalciferol (Vitamin D2) [Vitamin D2] 50,000 unit PO MOWEFR 03/05/16 [Last Taken 02/18/17] Hydroxyzine Pamoate [Vistaril] 50 mg PO QIDACHS 03/05/16 [Last Taken 02/18/17] Aspirin [Aspir-Low] 81 mg PO DAILY 10/03/16 [Last Taken 02/18/17] Gabapentin [Neurontin] 400 mg PO TIDAC 10/03/16 [Last Taken 02/18/17] Meloxicam [Mobic] 15 mg PO QHS 10/03/16 [Last Taken 02/18/17] Atorvastatin Calcium 20 mg PO DAILY 02/18/17 [Last Taken Unknown] Metoprolol Succinate [Toprol Xl] 25 mg PO DAILY 02/18/17 [Last Taken Unknown] Potassium Chloride [Klor-Con M20] 20 meq PO QPM 02/18/17 [Last Taken Unknown] Tiotropium Lydia [Spiriva] 1 inh INH DAILY 02/18/17 [Last Taken 02/18/17] Furosemide [Lasix] 20 mg PO DAILY 02/19/17 [Last Taken Unknown] Doxycycline Hyclate [Vibramycin] 100 mg PO BID #12 02/20/17 [Last Taken Unknown ] Ipratropium/Albuterol [Duoneb] 3 ml INH RESP.Q4H.WA #120 02/20/17 [Last Taken Unknown] Prednisone [Prednisone 20Mg] 20 mg PO DAILY #13 tab 02/20/17 [Last Taken Unknown ] Discharge Plan - Discharge Instructions Activity at Discharge: Increase Activity as Tolerated Diet at Discharge: Low Fat, Low Cholesterol Instructions: Heart Failure (DC), Urinary Tract Infection in Women (DC), COPD ( Chronic Obstructive Pulmonary Disease) (DC) Additional Instructions: Continue home medications. 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 QUIT SMOKING Rest! Follow up with your family doctor within 5-7 days of discharge. Call your Primary Care Provider when you are home to obtain a tri-fold cane that your doctor ordered for you.
[2017-02-20] MEDS ORDERED: FUROSEMIDE 20 MG TABLET PO SCH (10:00)
[2017-02-20] MEDS: DOXYCYCLINE HYCLATE 100 MG CAPSULE PO SCH (11:04)
[2017-02-20] MEDS: METOPROLOL SUCC 25 MG TAB.ER PO SCH (11:04)
[2017-02-20] MEDS: ATORVASTATIN 20 MG TABLET PO SCH (11:05)
[2017-02-20] MEDS: ASPIRIN 81 MG TABEC PO SCH (11:05)
[2017-02-20] MEDS: METHYLPREDNISOLONE PF 125MG/VIAL IVP SCH (11:05)
[2017-02-20] MEDS: DULOXETINE HCL 30 MG CAPSULE.DR PO SCH (11:05)
[2017-02-20] MEDS: POTASSIUM CHLORIDE 20 MEQ TABLET PO SCH (11:17)
[2017-02-20] MEDS: NICOTINE14 MG/24 HOUR PATCH TD SCH (11:17)
[2017-02-20 13:11] LABS: URINE APPEARANCE CLEAR; URINE BILIRUBIN NEGATIVE (NEGATIVE); URINE BLOOD NEGATIVE (NEGATIVE); URINE COLOR YELLOW; URINE GLUCOSE (UA) NEGATIVE (NEGATIVE); URINE KETONE NEGATIVE (NEGATIVE); URINE LEUKOCYTE ESTERASE TRACE (NEGATIVE); URINE NITRITE NEGATIVE (NEGATIVE); URINE PROTEIN NEGATIVE (NEGATIVE); URINE UROBILINOGEN 0.2 E.U./dL (0.20 - 1.00)
[2017-02-20 13:22] LABS: URINE BACTERIA 1+; URINE SQUAMOUS EPITHELIAL CELL 16 - 20 /hpf
== END 2017-02-20 14:00 | disposition home or self-care (01) | DRG 191 ==
LOC: ER 14:31 → OBSVTOIN 17:23 → MEDSURG 17:23
PROVIDERS: ADMIT Family Medicine; ATTEND Family Medicine
DX: J44.1 Chronic obstructive pulmonary disease with (acute) exacerbation (principal); I50.32 Chronic diastolic (congestive) heart failure; R91.1 Solitary pulmonary nodule; Z86.73 Personal history of transient ischemic attack (TIA), and cerebral infarction without residual deficits; E03.9 Hypothyroidism, unspecified; M54.5 Low back pain; Z78.9 Other specified health status
CPT/HCPCS: 71020; 80053; 81001; 82310; 83690; 83880; 84484; 85027; 93005; 93010; 94620; 94640; 94760; 96374; 96375; 99223; 99239; 99285; J1940; J2930

== ENCOUNTER 2018-06-19 20:38 | Inpatient (IN) | payer MEDICAID ==
[2018-06-19] MEDS ORDERED: ONDANSETRON HCL IV 4 MG/2 ML VIAL IVP ONE (20:53)
[2018-06-19] MEDS ORDERED: MORPHINE SULFATE 10 MG/ML VIAL IVP ONE (20:54)
--- NOTE | 2018-06-19 20:59 | Emergency Department Record ---
History of Present Illness - General Chief complaint: Nausea, Vomiting, Diarrhea Stated complaint: VOMITING,DIARRHEA Time Seen by Provider: 06/19/18 20:49 Source: Patient Mode of Arrival: EMS Limitations: No limitations - History of Present Illness Initial comments: 62 you female presents to ED for evaluation of abdominal pain, nausea, and vomiting that began this morning. Patient denies fevers/chills, denies productive cough symptoms. Patient reports a history of COPD that is oxygen dependent. Patient denies urinary symptoms or flank pain. MD complaint: Abdominal pain, Diarrhea, Nausea Onset/Timin -: Days(s) Associated Abdominal Pain: Yes Location: Diffuse Radiation: None Severity: Severe Quality: Cramping Consistency: Constant Improves with: None Worsens with: None Associated Symptoms: Denies other symptoms - Related Data Home Medications Medication Instructions Recorded Confirmed Last Taken Cholecalciferol (Vitamin D3) 2,000 unit PO DAILY 06/19/18 06/19/18 Unknown [Vitamin D3] Previous Rx's Medication Instructions Recorded Ipratropium/Albuterol [Duoneb] 3 ml INH [id number] #120 02/20/17 Allergies Allergy/AdvReac Type Severity Reaction Status Date / Time haloperidol [From Haldol] Allergy SWELLING Verified 02/18/17 14:45 OF THE TONGUE haloperidol lactate Allergy SWELLING Verified 02/18/17 14:45 [From Haldol] OF THE TONGUE Penicillins Allergy HIVES Verified 02/18/17 14:45 ibuprofen [From Motrin] AdvReac can't take Verified 06/19/18 20:56 it due to ulcers Review of Systems Constitutional: Denies: Chills, Fever, Malaise, Night sweats Eyes: Denies: Eye discharge, Eye pain ENT: Denies: Congestion, Ear pain, Epistaxis Respiratory: Denies: Cough, Dyspnea Cardiovascular: Denies: Chest pain, Dyspnea on exertion Endocrine: Denies: Fatigue, Heat or cold intolerance Gastrointestinal: Reports: Abdominal pain, Diarrhea, Nausea, Vomiting Genitourinary: Denies: Incontinence, Retention Musculoskeletal: Denies: Arthralgia, Back pain Skin: Denies: Bruising, Change in color Neurological: Denies: Abnormal gait, Confusion, Headache, Seizure Psychiatric: Denies: Anxiety Hematological/Lymphatic: Denies: Anemia, Blood Clots Past Medical History - SOCIAL HISTORY Smoking Status: Current every day smoker Drug Use Detail:: Marijuana - RESPIRATORY Hx Respiratory Disorders: Yes Hx COPD: Yes - CARDIOVASCULAR Hx Cardio Disorders: Yes Hx CHF: Yes Comment:: leaky mitral and aortic valve - NEURO Hx Neuro Disorders: Yes Hx Dizziness: Yes Hx Seizures: No Hx TIA: Yes - GI Hx GI Disorders: Yes Hx Reflux: Yes Hx Ulcer: Yes - Hx Genitourinary Disorders: Yes Hx UTI: Yes Comment:: interstitial cystitis - ENDOCRINE Hx Endocrine Disorders: Yes Hx Thyroid Disease: Yes (hyper) - MUSCULOSKELETAL Hx Musculoskeletal Disorders: Yes Hx Arthritis: Yes Hx Back Injury: Yes (ruptured disks in neck and lower back) Comment:: stenosis of the spine - PSYCH Hx Psych Problems: Yes Hx Anxiety: Yes - HEMATOLOGY/ONCOLOGY Hx Hematology/Oncology Disorders: No Family Medical History Hx Cancer: Father (Renal Ca) Physical Exam - General General Appearance: Alert, Oriented x3, Cooperative, Moderate distress Limitations: No limitations - Head Head exam: Atraumatic, Normocephalic, Normal inspection Head exam detail: negative: Abrasion, Contusion, Zayas's sign, General tenderness, Hematoma, Laceration - Eye Eye exam: Normal appearance. negative: Conjunctival injection, Periorbital swelling, Periorbital tenderness, Scleral icterus - ENT Ear exam: negative: Auricular hematoma, Auricular trauma Nasal Exam: negative: Active bleeding, Discharge, Dried blood, Foreign body Mouth exam: negative: Drooling, Laceration, Muffled voice, Tongue elevation - Neck Neck exam: Normal inspection. negative: Meningismus, Tenderness - Respiratory Respiratory exam: Decreased breath sounds, Prolonged expiratory, Respiratory distress, Wheezes - Cardiovascular Cardiovascular Exam: Regular rate, Normal rhythm, Normal heart sounds - GI/Abdominal GI/Abdominal exam: Soft, Tenderness, Other (Diffuse TTP on examination, no rebound, guarding is present.). negative: Rebound - Rectal Rectal exam: Deferred - exam: Deferred - Extremities Extremities exam: Normal inspection. negative: Calf tenderness, Pedal edema, Tenderness - Back Back exam: Denies: CVA tenderness (R), CVA tenderness (L) - Neurological Neurological exam: Alert, Normal gait, Oriented X3 - Psychiatric Psychiatric exam: Normal affect, Normal mood - Skin Skin exam: Normal color. negative: Abrasion Type of lesion: negative: abrasion Course Vital Signs 06/19/18 06/19/18 20:43 20:45 Temperature 98.3 F Pulse Rate [ 97 H Pulse Ox Probe] Respiratory 28 H Rate Blood Pressure 162/92 [Right Arm] Pulse Ox 98 - Reevaluation(s) Reevaluation #1: 06/19/18 21:28 Laboratory studies were reviewed: AG 23 BUN 24 UA reviewed: 3-5 WBCs 3-6 Epithelial cells 4+ Bacteria Laboratory studies are otherwise grossly unremarkable for an acute process. C. Diff pending. Cipro ordered to initiate treatment for UTI. Reevaluation #2: 06/19/18 22:40 CT Abdomen and Pelvis: Negative for an acute process Patient was updated on all results, patient continues to report diffuse pain "all over". Will admit for continued IVFs pain control. Reevaluation #3: 06/20/18 07:25 Case was discussed with Jessica Rodney NP, will accept admission at this time. Medical Decision Making - Lab Data Result diagrams: 06/19/18 20:48 06/19/18 20:48 Disposition Disposition: Admit Clinical Impression: UTI (urinary tract infection) Qualifiers: Urinary tract infection type: acute cystitis Hematuria presence: without hematuria Qualified Code(s): N30.00 - Acute cystitis without hematuria Nausea & vomiting Qualifiers: Vomiting type: unspecified Vomiting Intractability: non-intractable Qualified Code(s): R11.2 - Nausea with vomiting, unspecified Disposition: Still a Patient at [facility] Decision to Admit: Admit from ER Decision to Admit Date: 06/19/18 Decision to Admit Time: 22:45 Condition: (2) Stable Time of Disposition: 22:41 Quality - Quality Measures Quality Measures: N/A - Blood Pressure Screening Does Patient Have Any of the Following: Active Dx of HTN Blood Pressure Classification: Hypertensive Reading Systolic Measurement: 174 Diastolic Measurement: 72 Screening for High Blood Pressure: Patient Exclusion, Hx of HTN [[id number]]
[2018-06-19] MEDS ORDERED: 0.9 % SODIUM CHLORIDE 1000ML 1,000 ML IV SCH (21:00)
[2018-06-19 21:03] LABS: BASO % 0.9 % (0-6); EOS % 0.4 % (0-6); HEMATOCRIT 43.4 % (35.0-47.0); HEMOGLOBIN 13.8 gm/dl (11.6-16.0); LYMPH % 16.2 % (16-45); MEAN CORPUSCULAR HEMOGLOBIN 28.6 pg (27-33); MEAN CORPUSCULAR HGB CONC 31.8 g/dl (32-36); MEAN PLATELET VOLUME 10.1 fl (7.4-10.4); MONO % 7.5 % (0-9); PLATELET COUNT 375 K/uL (130-400); RED BLOOD COUNT 4.82 M/uL (3.80-5.40); RED CELL DISTRIBUTION WIDTH 16.9 % (11.5-14.5); WHITE BLOOD COUNT W/O DIFF 10.4 K/uL (4.2-12.2)
[2018-06-19] MEDS ORDERED: IPRATROPIUM/ALBUTEROL (0.5MG/3MG) NEB INH ONE (21:07)
[2018-06-19 21:17] LABS: BLOOD UREA NITROGEN 24 mg/dL (8-23); CREATININE 0.7 mg/dL (0.5-0.9); EST GLOMERULAR FILTRATION RATE > 60 mL/min
[2018-06-19 21:18] LABS: TOTAL PROTEIN 7.2 g/dL (6.6-8.7)
[2018-06-19 21:18] LABS: URINE BILIRUBIN NEGATIVE (NEGATIVE); URINE BLOOD NEGATIVE (NEGATIVE); URINE COLOR YELLOW; URINE GLUCOSE (UA) NEGATIVE (NEGATIVE); URINE KETONE 40 mg/dL (NEGATIVE); URINE LEUKOCYTE ESTERASE NEGATIVE (NEGATIVE); URINE NITRITE POSITIVE (NEGATIVE); URINE UROBILINOGEN 0.2 E.U./dL (0.20 - 1.00)
[2018-06-19 21:20] LABS: GLUCOSE,RANDOM 94 mg/dL (74-109)
[2018-06-19 21:23] LABS: URINE APPEARANCE CLOUDY
[2018-06-19 21:23] LABS: ALB/GLOB RATIO 1.5 (1.1-1.8); ALBUMIN 4.3 g/dL (4.0-5.0); ALKALINE PHOSPHATASE 115 U/L (45-87); ALT/SGPT 16 U/L (<33); AST/SGOT 24 U/L (10.0-35.0); LIPASE 20 U/L (13-60)
[2018-06-19 21:24] LABS: URINE BACTERIA 4+; URINE RBC NONE SEEN (NONE SEEN)
[2018-06-19] MEDS ORDERED: CIPROFLOXACIN LACTATE/D5W 400 MG/200 ML BAG IVPB ONE (21:30)
[2018-06-19] MEDS ORDERED: HYDROMORPHONE HCL 2 MG/ML VIAL IVP ONE (21:43)
[2018-06-20] MEDS ORDERED: ONDANSETRON HCL IV 4 MG/2 ML VIAL IVP PRN (00:43)
[2018-06-20] MEDS ORDERED: 0.9 % SODIUM CHLORIDE 1000ML 1,000 ML IV PRN (00:43)
[2018-06-20] MEDS ORDERED: HYOSCYAMINE SULFATE ODT 0.125 MG TAB.SUBL SL PRN (00:43)
[2018-06-20] MEDS ORDERED: LORAZEPAM 2 MG/ML VIAL IV ONE (01:06)
[2018-06-20] MEDS ORDERED: HYDRALAZINE 20MG/ML VIAL IV ONE (01:06)
[2018-06-20] MEDS ORDERED: 0.9 % SODIUM CHLORIDE 1,000 ML BAG IV ONE (01:53)
[2018-06-20] MEDS: ACETAMINOPHEN 325 MG TAB PO PRN ×2 (03:08→08:47)
[2018-06-20] MEDS: METOPROLOL TART 50 MG TABLET PO SCH ×4 (03:14→22:37)
[2018-06-20] MEDS ORDERED: HYDRALAZINE 20MG/ML VIAL IV PRN (03:46)
[2018-06-20] MEDS ORDERED: PANTOPRAZOLE SODIUM 40 MG TABLET PO ONE (03:49)
[2018-06-20] MEDS ORDERED: LORAZEPAM 2 MG/ML VIAL IV PRN ×2 (03:50→11:56)
[2018-06-20] MEDS: ALBUTEROL HFA 8 GM INHALER INH SCH ×2 (05:40→12:53)
[2018-06-20] MEDS ORDERED: IPRATROPIUM/ALBUTEROL (0.5MG/3MG) NEB INH SCH (06:00)
--- NOTE | 2018-06-20 08:16 | CT SCAN REPORT ---
EXAM: CT SCAN OF THE ABDOMEN AND PELVIS WITH CONTRAST HISTORY: DIFFUSE ABDOMINAL PAIN WITH NAUSEA AND VOMITING. TECHNIQUE: Standard CT imaging of the abdomen and pelvis was performed with intravenous contrast. 100 ml of Omnipaque 300 were administered. Comparison: 11/20/14. FINDINGS: The lung bases are clear. A tiny cyst is noted within the liver and is unchanged. The hepatic parenchyma is otherwise normal. A calcified stone is present within the gallbladder. There is no evidence for acute cholecystitis. There is no biliary ductal dilatation. The pancreas, spleen, and adrenal glands are normal. Tiny cortical cysts are present within both kidneys. There is no hydronephrosis or visible calculus. Extensive atherosclerotic changes are present within the aorta with no aneurysm. There is no retroperitoneal lymphadenopathy. A few air and fluid filled small bowel loops are present within the mid abdomen with no zone of transition or focal inflammatory change. This is believed physiologic. The small bowel loops are otherwise unremarkable. The colon is normal. There is no pneumoperitoneum or ascites. The uterus is surgically absent. The urinary bladder is unremarkable. Degenerative changes are present within the spine. There is a probable disk herniation at the L2-L3 level in the right paracentral position with superior extrusion of the disk material. Vacuum disk phenomenon is present and extends into the disk herniation. IMPRESSION: 1. NO ACUTE INTRAABDOMINAL PATHOLOGY IDENTIFIED. 2. CHOLELITHIASIS WITH NO EVIDENCE FOR ACUTE CHOLECYSTITIS. 3. TINY HEPATIC AND BILATERAL RENAL CYSTS. 4. PROBABLE DISK HERNIATION AT THE L2-L3 LEVEL. JOB NUMBER: [id number] MTDD
[2018-06-20 08:43] LABS: AMPHETAMINE SCREEN URINE NOT DETECTED; BARBITURATE SCREEN URINE NOT DETECTED; BENZODIAZEPINE SCREEN URINE NOT DETECTED; COCAINE SCREEN URINE NOT DETECTED; METHADONE SCREEN URINE NOT DETECTED; METHAMPHETAMINE SCREEN NOT DETECTED; OPIATE SCREEN URINE NOT DETECTED; OXYCODONE SCREEN URINE NOT DETECTED; PHENCYCLIDINE SCREEN URINE NOT DETECTED; PROPOXYPHENE SCREEN URINE NOT DETECTED; THC SCREEN URINE DETECTED; TRICYCLIC ANTIDEPRESSANT SCRN NOT DETECTED
--- NOTE | 2018-06-20 09:35 | CT SCAN REPORT ---
EXAM: CT OF THE BRAIN WITHOUT CONTRAST HISTORY: MENTAL STATUS CHANGE. TECHNIQUE: Sequential axial images were obtained from the foramen magnum to the vertex without contrast administration. FINDINGS: There is periventricular small vessel ischemia. No large territorial infarct, hemorrhage, mass effect, or midline shift. No extraaxial fluid collection. The orbits, paranasal sinuses and mastoid air cells are normal. IMPRESSION: PERIVENTRICULAR SMALL VESSEL ISCHEMIA. NO ACUTE INTRACRANIAL ABNORMALITY. JOB NUMBER: [id number] [facility]
[2018-06-20] MEDS ORDERED: LEVOTHYROXINE SODIUM 100 MCG TABLET PO SCH (10:00)
[2018-06-20] MEDS: PANTOPRAZOLE SODIUM 40 MG TABLET PO SCH ×3 (11:00→22:38)
[2018-06-20] MEDS: DULOXETINE HCL 30 MG CAPSULE.DR PO SCH (11:00)
[2018-06-20] MEDS: ATORVASTATIN 20 MG TABLET PO SCH (11:00)
[2018-06-20] MEDS: ASPIRIN 81 MG TABEC PO SCH (11:00)
[2018-06-20] MEDS ORDERED: CEFTRIAXONE SODIUM 2 GM in 0.9 % SODIUM CHLORIDE 100ML 100 ML IVPB SCH (11:00)
[2018-06-20] MEDS: MELOXICAM 7.5 MG TABLET PO SCH (11:00)
[2018-06-20] MEDS: GABAPENTIN 100 MG CAPSULE PO SCH ×4 (11:00→22:37)
[2018-06-20] MEDS: GABAPENTIN 300 MG CAPSULE PO SCH ×4 (11:00→22:37)
--- NOTE | 2018-06-20 11:01 | History & Physical ---
History of Present Illness - Date of Service Date of Service for History & Physical: 06/20/18 - History of Present Illness Admitting Diagnosis: UTI. Nausea, Vomiting, Diarrhea. Abdominal pain History of Present Illness: 62 yo female presents for N/V/D and abd pain. No other sick contacts, has not eaten out, only public contact was going to grocery store this week. Pt is O2 dependent, reporting 5 L NS all the time but still smokes 1ppd and currently not seeking smoking cessation assistance. PMH COPD, CHF, behavioral health issues, back pain, interstitial cystitis. 06/19/18 -Pt presented to ER via EMS for N/V/D and abd pain. Diffuse abd cramping and diarrhea that started yesterday, denies sick contacts. BP 162/92, HR 97, RR 28, 98% 5L NC (home o2), 98.3F, dyspnea improved after arrival to the floor. WBC 10.4, Hgb 13.8, Hct 43.4, Plt 375 Na 141, K 4.3, Cl 94, CO2 24, anion gap 23, BUN 24, Cr 0.7, GFR>60, LFTs normal , CK 77 UA positive for UTI Cdiff culture pending collection CT abd /pelvis neg for acute process. Admitted for N/V/D abd pain, UTI Given Cipro IVPB ER approx 0100 pt had neurological event that was seizure like. Rapid response was called, ER attended. Per nursing notes, pt was breathing on her own, did not lose bowel or bladder control, and regained responsiveness without excessive delay Lactic acid 7.1 0110, repeat 0305 1.3 Pt was given ativan IVP, fluids and placed on seizure precautions. 06/20/18 Pt resting in bed, no distress noted, seizure pads present. Pt is alert and oriented but has difficulty remembering the activities from last night. Pt has end stage COPD, 5L nc at home and still smokes 1ppd. Lung sounds diminished, wheezes through out. BS x4, tenderness to epigastric and suprapubic area, no masses noted. Pt req to get out of bed to the chair but this was declined r/t recent seizure like activity. Heart RRR, pulses +3 Radial, PT/DP Labs ordered and reviewed TSH 139, Mag 1.4, UDS neg other than thc. MAPS positive for oxycodone 5mg BID for back pain, pt reports running out of meds 06/12/18 and had OV scheduled today to get refill. Denies excessive ETOH consumption. Skin is pwd during assessment. POC, continue seizure precautions, mag supplement ordered, increased synthroid on the severe disease scale from 100mcg to 150mcg ([place] thyroid not available this facility), trialed CLD but pt unable to tolerate. Changed IVF to D5 1/2N with 20 mEq @125 until able to tolerate PO. Continue IVP zofran PRN. Pain meds ordered per MAPS. C Diff culture pending collection, no known stool since arrival to floor. Ativan IVP PRN for seizure like activity remains, changed from anx PRN to seizure only PRN. ABX changed to rocpehin r/t recent seizure like activity. pt reports tolerance of Keflex in the past. PCP [facility] Travel Screening - Travel/Exposure Within Last 30 Days Have you traveled within the last 30 days?: No - Travel/Exposure Within Last Year Have you traveled outside the [place] in the last year?: No - Additonal Travel Details Have you been exposed to anyone with a communicable illness?: No - Travel Symptoms Symptom Screening: Headache, Diarrhea, Vomiting, Stomach Pain Review of Systems Constitutional: Denies: Chills, Fever, Malaise, Night sweats Eyes: Denies: Eye discharge, Eye pain ENT: Denies: Congestion, Ear pain, Epistaxis Respiratory: Denies: Cough, Dyspnea Cardiovascular: Denies: Chest pain, Dyspnea on exertion Endocrine: Denies: Fatigue, Heat or cold intolerance Gastrointestinal: Reports: Abdominal pain, Diarrhea, Nausea, Vomiting Genitourinary: Denies: Incontinence, Retention Musculoskeletal: Denies: Arthralgia, Back pain Skin: Denies: Bruising, Change in color Neurological: Denies: Abnormal gait, Confusion, Headache, Seizure Psychiatric: Denies: Anxiety Hematological/Lymphatic: Denies: Anemia, Blood Clots Past Medical History - SOCIAL HISTORY Smoking Status: Heavy tobacco smoker (>10/day) Alcohol Use: Occasional Drug Use Detail:: Marijuana - RESPIRATORY Hx Respiratory Disorders: Yes Hx COPD: Yes - CARDIOVASCULAR Hx Cardio Disorders: Yes Hx CHF: Yes Comment:: leaky mitral and aortic valve - NEURO Hx Neuro Disorders: Yes Hx Dizziness: Yes Hx Seizures: No Hx TIA: Yes - GI Hx GI Disorders: Yes Hx Reflux: Yes Hx Ulcer: Yes - Hx Genitourinary Disorders: Yes Hx UTI: Yes Comment:: interstitial cystitis - ENDOCRINE Hx Endocrine Disorders: Yes Hx Thyroid Disease: Yes (hyper) - MUSCULOSKELETAL Hx Musculoskeletal Disorders: Yes Hx Arthritis: Yes Hx Back Injury: Yes (ruptured disks in neck and lower back) Comment:: stenosis of the spine - PSYCH Hx Psych Problems: Yes Hx Anxiety: Yes - HEMATOLOGY/ONCOLOGY Hx Hematology/Oncology Disorders: No Family Medical History Hx Cancer: Father (Renal Ca) H&P Meds/Allergies - Allergies Allergies: Allergies Allergy/AdvReac Type Severity Reaction Status Date / Time haloperidol [From Haldol] Allergy SWELLING Verified 02/18/17 14:45 OF THE TONGUE haloperidol lactate Allergy SWELLING Verified 02/18/17 14:45 [From Haldol] OF THE TONGUE Penicillins Allergy HIVES Verified 02/18/17 14:45 ibuprofen [From Motrin] AdvReac can't take Verified 06/19/18 20:56 it due to ulcers - Home Medications Home Medications Medication Instructions Recorded Confirmed Last Taken Cholecalciferol (Vitamin D3) 2,000 unit PO DAILY 06/19/18 06/19/18 Unknown [Vitamin D3] Previous Rx's Medication Instructions Recorded Ipratropium/Albuterol [Duoneb] 3 ml INH RESP.Q4H.[facility] #120 02/20/17 - Active Medications Active Medications: Current Medications Acetaminophen (Tylenol 325mg) 650 mg PO Q6H PRN PRN Reason: PAIN - MILD TO MODERATE (1-7) Last Admin: 06/20/18 08:47 Dose: 650 mg Albuterol Sulfate (Ventolin Hfa) 2 puff INH [facility]Q4H[facility] Last Admin: 06/20/18 05:40 Dose: Not Given Aspirin (Ecotrin (Ec)) 81 mg PO DAILY [facility] Atorvastatin Calcium (Lipitor) 40 mg PO DAILY [facility] Duloxetine HCl (Cymbalta) 90 mg PO DAILY [facility] Gabapentin (Neurontin) 300 mg PO TID ROBERT Gabapentin (Neurontin) 100 mg PO TID [facility] Hydralazine HCl (Apresoline) 10 mg IV NOW PRN PRN Reason: HYPERTENSIVE EMERGENCY Hyoscyamine (Levsin Odt) 0.25 mg SL Q4H PRN PRN Reason: ABDOMINAL PAIN Sodium Chloride () 1,000 mls @ 125 mls/hr IV .Q8H PRN PRN Reason: LARGE VOLUME IV Last Admin: 06/20/18 02:46 Dose: 125 mls/hr Ceftriaxone Sodium 2 gm/ (Sodium Chloride) 100 mls @ 200 mls/hr IVPB Q24H [facility] Stop: 06/25/18 11:01 Levothyroxine Sodium (Synthroid) 100 mcg PO DAILYTHY [facility] Lorazepam (Ativan) 1 mg IV Q4H PRN PRN Reason: ANXIETY Meloxicam (Mobic) 15 mg PO DAILY [facility] Metoprolol Tartrate (Lopressor) 50 mg PO BID [facility] Last Admin: 06/20/18 03:14 Dose: 50 mg Ondansetron HCl (Zofran) 4 mg IVP Q4H PRN PRN Reason: NAUSEA Pantoprazole Sodium (Protonix) 40 mg PO BID [facility] Trazodone HCl (Desyrel) 150 mg PO QHS [facility] Physical Exam - Vital Signs Vital Signs: Vital Signs - Last 24 Hrs Temp Pulse Pulse Resp BP BP Pulse Ox 06/20/18 05:40 98 06/20/18 03:00 97.1 F L 19 174/72 06/20/18 01:10 203/97 06/20/18 00:30 209/108 06/20/18 00:26 102 H 24 99 06/19/18 23:25 98 H 28 H 197/85 98 06/19/18 22:28 93 H 20 100 06/19/18 22:25 94 H 32 H 200/85 100 06/19/18 20:45 98.3 F 97 H 28 H 98 06/19/18 20:43 162/92 - General General Appearance: Alert, Oriented x3, Cooperative, No acute distress Limitations: No limitations - Head Head exam: Atraumatic, Normocephalic, Normal inspection Head exam detail: negative: Abrasion, Contusion, Zayas's sign, General tenderness, Hematoma, Laceration - Eye Eye exam: Normal appearance. negative: Conjunctival injection, Periorbital swelling, Periorbital tenderness, Scleral icterus - ENT ENT exam: Mucous membranes moist Ear exam: negative: Auricular hematoma, Auricular trauma Nasal Exam: negative: Active bleeding, Discharge, Dried blood, Foreign body Mouth exam: negative: Drooling, Laceration, Muffled voice, Tongue elevation Teeth exam: Other (teeth absent) - Neck Neck exam: Normal inspection. negative: Meningismus, Tenderness - Respiratory Respiratory exam: Accessory muscle use, Decreased breath sounds, Prolonged expiratory, Wheezes. negative: Respiratory distress - Cardiovascular Cardiovascular Exam: Regular rate, Normal rhythm, Normal heart sounds Peripheral Pulses: 3+: Radial (R), Radial (L), Dorsalis Pedis (R), Dorsalis Pedis (L) - GI/Abdominal GI/Abdominal exam: Soft, Tenderness, Other (epigastric and suprapubic TTP on examination, no rebound, guarding is present.). negative: Rebound - Rectal Rectal exam: Deferred - exam: Deferred - Extremities Extremities exam: Normal inspection. negative: Calf tenderness, Pedal edema, Tenderness - Back Back exam: Denies: CVA tenderness (R), CVA tenderness (L) - Neurological Neurological exam: Alert, Normal gait, Oriented X3 - Psychiatric Psychiatric exam: Normal affect, Normal mood - Skin Skin exam: Normal color. negative: Abrasion Type of lesion: negative: abrasion Results - Labs Result Diagrams: 06/19/18 20:48 06/19/18 20:48 Labs Last 24 Hours: Laboratory Results - last 24 hr 06/19/18 06/19/18 06/19/18 20:48 20:48 20:55 WBC 10.4 RBC 4.82 Hgb 13.8 Hct 43.4 MCV 90.0 MCH 28.6 MCHC 31.8 L RDW 16.9 H Plt Count 375 MPV 10.1 Gran % 75.0 Lymphocytes % 16.2 Monocytes % 7.5 Eosinophils % 0.4 Basophils % 0.9 Sodium 141 Potassium 4.3 Chloride 94 L Carbon Dioxide 24.0 Anion Gap 23.0 H BUN 24 H Creatinine 0.7 Estimated GFR > 60 Random Glucose 94 Lactic Acid Calcium 9.0 Total Bilirubin 0.40 AST 24 ALT 16 Alkaline Phosphatase 115 H Creatine Kinase Total Protein 7.2 Albumin 4.3 Globulin 2.9 Albumin/Globulin Ratio 1.5 Lipase 20 Urine Color Yellow Urine Appearance Cloudy Urine pH 6.0 Ur Specific [place] >= 1.030 Urine Protein 30 mg/dl H Urine Glucose (UA) Negative Urine Ketones 40 mg/dl H Urine Blood Negative Urine Nitrite Positive H Urine Bilirubin Negative Urine Urobilinogen 0.2 Ur Leukocyte Esterase Negative Urine RBC None seen Urine WBC 3 - 5 Ur Epithelial Cells 3 - 6 Urine Bacteria 4+ Urine Opiates Screen Ur Oxycodone Screen Urine Methadone Screen Ur Propoxyphene Screen Ur Barbituates Screen Ur Tricyclics Screen Ur Phencyclidine Scrn Ur Amphetamine Screen U Methamphetamines Scrn U Benzodiazepines Scrn Urine Cocaine Screen Urine Cannabis Screen 06/20/18 06/20/18 06/20/18 01:10 01:10 03:05 WBC RBC Hgb Hct MCV MCH MCHC RDW Plt Count MPV Gran % Lymphocytes % Monocytes % Eosinophils % Basophils % Sodium Potassium Chloride Carbon Dioxide Anion Gap BUN Creatinine Estimated GFR Random Glucose Lactic Acid Cancelled 7.1 H 1.3 Calcium Total Bilirubin AST ALT Alkaline Phosphatase Creatine Kinase 77 Total Protein Albumin Globulin Albumin/Globulin Ratio Lipase Urine Color Urine Appearance Urine pH Ur Specific [place] Urine Protein Urine Glucose (UA) Urine Ketones Urine Blood Urine Nitrite Urine Bilirubin Urine Urobilinogen Ur Leukocyte Esterase Urine RBC Urine WBC Ur Epithelial Cells Urine Bacteria Urine Opiates Screen Ur Oxycodone Screen Urine Methadone Screen Ur Propoxyphene Screen Ur Barbituates Screen Ur Tricyclics Screen Ur Phencyclidine Scrn Ur Amphetamine Screen U Methamphetamines Scrn U Benzodiazepines Scrn Urine Cocaine Screen Urine Cannabis Screen 06/20/18 08:00 WBC RBC Hgb Hct MCV MCH MCHC RDW Plt Count MPV Gran % Lymphocytes % Monocytes % Eosinophils % Basophils % Sodium Potassium Chloride Carbon Dioxide Anion Gap BUN Creatinine Estimated GFR Random Glucose Lactic Acid Calcium Total Bilirubin AST ALT Alkaline Phosphatase Creatine Kinase Total Protein Albumin Globulin Albumin/Globulin Ratio Lipase Urine Color Urine Appearance Urine pH Ur Specific [place] Urine Protein Urine Glucose (UA) Urine Ketones Urine Blood Urine Nitrite Urine Bilirubin Urine Urobilinogen Ur Leukocyte Esterase Urine RBC Urine WBC Ur Epithelial Cells Urine Bacteria Urine Opiates Screen Not detected Ur Oxycodone Screen Not detected Urine Methadone Screen Not detected Ur Propoxyphene Screen Not detected Ur Barbituates Screen Not detected Ur Tricyclics Screen Not detected Ur Phencyclidine Scrn Not detected Ur Amphetamine Screen Not detected U Methamphetamines Scrn Not detected U Benzodiazepines Scrn Not detected Urine Cocaine Screen Not detected Urine Cannabis Screen Detected - Imaging and Cardiology CT scan - abdomen Status: Report reviewed CT scan - head Status: Report reviewed VTE H&P Assessment - Risk for VTE Risk for VTE: Yes Risk Level: Moderate Risk Assessment Date: 06/20/18 Risk Assessment Time: 15:34 VTE Orders Placed or Will Be Placed: Yes Plan - Detailed Diagnosis and Plan (1) Nausea & vomiting Current Visit: Yes Status: Acute Qualifiers: Vomiting type: unspecified Vomiting Intractability: non-intractable Qualified Code(s): R11.2 - Nausea with vomiting, unspecified Base Code: R11.2 - NAUSEA WITH VOMITING, UNSPECIFIED Comment: 06/20/18 -zofran IVP PRN, attempted to advance to CLD failed -D51/2 with 20 K at 75 to continue until tolerating PO -Monitor for CHF exacerbation (2) UTI (urinary tract infection) Current Visit: Yes Status: Acute Qualifiers: Urinary tract infection type: acute cystitis Hematuria presence: without hematuria Qualified Code(s): N30.00 - Acute cystitis without hematuria Base Code: N39.0 - URINARY TRACT INFECTION, SITE NOT SPECIFIED Comment: 06/20/18 -UA positive ER, awaiting c&s -pt given Cipro 400mg IVPB in ER, later in the night had seizure like activity, changed to Rocephin 1gm qd -no elevation WBC, no fever -gentle IVF hydration r/t n/v h/o fluid overload (3) Chronic back pain Current Visit: No Status: Chronic Qualifiers: Back pain location: low back pain Back pain laterality: bilateral Sciatica presence: without sciatica Qualified Code(s): M54.5 - Low back pain; G89.29 - Other chronic pain Base Code: M54.9 - DORSALGIA, UNSPECIFIED; G89.29 - OTHER CHRONIC PAIN Comment : 06/20/18: chronic, unchanged. continue home medications oxycodone 5mg BID PRN (4) Hypothyroidism Current Visit: No Status: Chronic Qualifiers: Hypothyroidism type: unspecified Qualified Code(s): E03.9 - Hypothyroidism , unspecified Base Code: E03.9 - HYPOTHYROIDISM, UNSPECIFIED Comment: 06/20/18 -TSH 139.3 on 100mch synthroid, increased to 150mcg on severe disease scale and US ordered to r/o other issues (5) Hypomagnesemia Current Visit: Yes Status: Acute Base Code: E83.42 - HYPOMAGNESEMIA Comment: 06/20/18 -pt has seizure like activity upon arrival to the floor, mag was ordered and found to be 1.4, 2gm mag IVPB ordered -repeat AM (6) Seizure-like activity Current Visit: Yes Status: Acute Base Code: R56.9 - UNSPECIFIED CONVULSIONS Comment: 06/20/18 -seizure precautions and ativan PRN continued -metabolic issues evaluated and being addressed individually including low mag and elevated TSH -Pt needs to be seen by PCP, no driving until evaluated by PCP (7) Full code status Current Visit: No Status: Acute Base Code: Z78.9 - OTHER SPECIFIED HEALTH STATUS Comment: 06/20/18 full code (8) DVT prophylaxis Current Visit: No Status: Acute Base Code: [id number] - Comment: 06/20/18 Lovenox 40 mg sq daily, currently on seizure precautions
[2018-06-20] MEDS ORDERED: CEFTRIAXONE 1GM/50ML BAG 1 GM/50 ML BAG IVPB SCH (11:15)
[2018-06-20] MEDS ORDERED: CEFTRIAXONE 1GM/50ML BAG IVPB SCH (11:15)
[2018-06-20] MEDS: IPRATROPIUM/ALBUTEROL (0.5MG/3MG) NEB INH SCH ×4 (11:33→23:31)
[2018-06-20] MEDS ORDERED: MAGNESIUM SULFATE 16 MEQ in 0.9 % SODIUM CHLORIDE 100ML 100 ML IV ONE (13:43)
[2018-06-20] MEDS: OXYCODONE HCL 5 MG TABLET PO PRN (14:58)
[2018-06-20] MEDS ORDERED: POTASSIUM CHLORIDE/D5-0.45NACL 20 MEQ/1,000 ML BAG IV SCH ×2 (15:30→15:32)
--- NOTE | 2018-06-20 15:38 | Inpatient Certification ---
Inpatient Certification Admit to inpatient care: Based on my medical assessment, after consideration of patient's risk factors (age, co-morbidities and patient presenting symptoms and acuity), I expect that this patient will remain in the hospital greater than or equal to two midnights and that the services needed warrant inpatient care because: Patient Risk Factors: seizure, fall, dysrhythmia, dehydration Estimated length of stay: The patient may reasonably be expected to be discharged or transferred to a hospital within 96 hours after admission to [facility]. Services needed: IVF, IV abx and nausea meds, electrolyte monitoring, cardiac monitoring Post hospital care (if known): [] I certify that my determination is in accordance with my understanding of Medicare requirements for reasonable and necessary inpatient services. 06/20/18 15:36
[2018-06-20] MEDS: TRAZODONE 50 MG TABLET PO SCH ×2 (20:11→22:35)
--- NOTE | 2018-06-21 04:55 | ULTRASOUND REPORT ---
EXAM: THYROID ULTRASOUND HISTORY: ELEVATED TSH. TECHNIQUE: Real-time ultrasound examination of the thyroid was obtained. Comparison: No prior thyroid ultrasound with which to compare. FINDINGS: The right lobe is identified measuring about 0.6 x 0.9 x 3.1 cm in size. The right lobe appears somewhat heterogeneous, but no definite discrete thyroid nodule seen on the right. The left lobe is identified measuring about 0.6 x 1.2 x 3.1 cm in size. The left lobe also appears somewhat heterogeneous although no definite discrete nodule seen. IMPRESSION: BOTH LOBES OF THE THYROID APPEAR RELATIVELY SMALL AND HETEROGENEOUS. NO DEFINITE DISCRETE NODULE SEEN ON EITHER SIDE. JOB NUMBER: [id number] MTDD
[2018-06-21] MEDS: IPRATROPIUM/ALBUTEROL (0.5MG/3MG) NEB INH SCH ×5 (06:15→22:13)
[2018-06-21] MEDS: LEVOTHYROXINE SODIUM 150 MCG TABLET PO SCH (06:29)
[2018-06-21 07:08] LABS: BLOOD UREA NITROGEN 14 mg/dL (8-23); CREATININE 0.7 mg/dL (0.5-0.9); EST GLOMERULAR FILTRATION RATE > 60 mL/min; GLUCOSE,RANDOM 98 mg/dL (74-109)
[2018-06-21] MEDS: MELOXICAM 7.5 MG TABLET PO SCH (09:59)
[2018-06-21] MEDS: GABAPENTIN 100 MG CAPSULE PO SCH ×3 (09:59→21:39)
[2018-06-21] MEDS: ENOXAPARIN 40 MG/0.4 ML SYR SQ SCH (10:00)
[2018-06-21] MEDS: METOPROLOL TART 50 MG TABLET PO SCH ×2 (10:00→21:39)
[2018-06-21] MEDS: ATORVASTATIN 20 MG TABLET PO SCH (10:00)
[2018-06-21] MEDS: GABAPENTIN 300 MG CAPSULE PO SCH ×3 (10:00→21:39)
[2018-06-21] MEDS: PANTOPRAZOLE SODIUM 40 MG TABLET PO SCH ×2 (10:00→21:39)
[2018-06-21] MEDS: ASPIRIN 81 MG TABEC PO SCH (10:00)
[2018-06-21] MEDS: DULOXETINE HCL 30 MG CAPSULE.DR PO SCH (10:00)
[2018-06-21] MEDS ORDERED: ONDANSETRON 4 MG ODT TABLET SL PRN (10:16)
[2018-06-21] MEDS: CEFDINIR 300 MG CAPSULE PO SCH ×2 (11:50→21:38)
[2018-06-21] MEDS: OXYCODONE HCL 5 MG TABLET PO PRN ×2 (11:58→20:18)
--- NOTE | 2018-06-21 12:12 | RADIOLOGY REPORT ---
EXAM: CHEST, TWO VIEWS HISTORY: DIFFICULTY IN BREATHING. TECHNIQUE: Frontal and lateral views of the chest were performed. FINDINGS: The heart size is normal. The lung mcmullen are clear. No infiltrate or pleural effusion. The osseous structures are normal. IMPRESSION: NEGATIVE CHEST EXAMINATION. JOB NUMBER: [id number] MTDD
--- NOTE | 2018-06-21 20:41 | Physician Progress Note ---
Subjective - Date Date of Physician Progress Note: 06/21/18 Objective - Vital Signs Vital Signs: Vital Signs - Last 24 Hrs Temp Pulse Pulse Resp BP Pulse Ox 06/21/18 16:00 97.4 F L 91 H 18 138/97 97 06/21/18 09:00 86 24 06/21/18 08:23 97.7 F 76 24 162/78 95 06/21/18 05:30 98.7 F 72 18 174/63 97 - General General Appearance: Alert, Oriented x3, Cooperative, No acute distress Limitations: No limitations - Head Head exam: Atraumatic, Normocephalic, Normal inspection Head exam detail: negative: Abrasion, Contusion, Zayas's sign, General tenderness, Hematoma, Laceration - Eye Eye exam: Normal appearance. negative: Conjunctival injection, Periorbital swelling, Periorbital tenderness, Scleral icterus - ENT ENT exam: Mucous membranes moist Ear exam: negative: Auricular hematoma, Auricular trauma Nasal Exam: negative: Active bleeding, Discharge, Dried blood, Foreign body Mouth exam: negative: Drooling, Laceration, Muffled voice, Tongue elevation Teeth exam: Other (teeth absent) - Neck Neck exam: Normal inspection. negative: Meningismus, Tenderness - Respiratory Respiratory exam: Accessory muscle use, Decreased breath sounds, Prolonged expiratory, Wheezes. negative: Respiratory distress - Cardiovascular Cardiovascular Exam: Regular rate, Normal rhythm, Normal heart sounds Peripheral Pulses: 3+: Radial (R), Radial (L), Dorsalis Pedis (R), Dorsalis Pedis (L) - GI/Abdominal GI/Abdominal exam: Soft, Tenderness, Other (epigastric and suprapubic TTP on examination, no rebound, guarding is present.). negative: Rebound - Rectal Rectal exam: Deferred - exam: Deferred - Extremities Extremities exam: Normal inspection. negative: Calf tenderness, Pedal edema, Tenderness - Back Back exam: Denies: CVA tenderness (R), CVA tenderness (L) - Neurological Neurological exam: Alert, Normal gait, Oriented X3 - Psychiatric Psychiatric exam: Normal affect, Normal mood - Skin Skin exam: Normal color. negative: Abrasion Type of lesion: negative: abrasion Assessment and Plan - Assessment and Plan (1) UTI (urinary tract infection) Current Visit: Yes Status: Acute Qualifiers: Urinary tract infection type: acute cystitis Hematuria presence: without hematuria Qualified Code(s): N30.00 - Acute cystitis without hematuria Base Code: N39.0 - URINARY TRACT INFECTION, SITE NOT SPECIFIED Comment: 06/21/18 -UA positive ER, awaiting c&s -Changed IV rocephin to cefdinir 300mg bid today (avoiding cipro due to possible lowering of seizure threshold) -no elevation WBC, no fever, urine culture pending (2) Hypomagnesemia Current Visit: Yes Status: Acute Base Code: E83.42 - HYPOMAGNESEMIA Comment: 06/21/18 -pt has seizure like activity upon arrival to the floor, mag was ordered and found to be 1.4, 2gm mag IVPB ordered -repeat AM mag today was 2.0 (3) Nausea & vomiting Current Visit: Yes Status: Acute Qualifiers: Vomiting type: unspecified Vomiting Intractability: non-intractable Qualified Code(s): R11.2 - Nausea with vomiting, unspecified Base Code: R11.2 - NAUSEA WITH VOMITING, UNSPECIFIED Comment: 06/21/18 -Pt. is now tolerating full diet, denies nausea -Monitor for CHF exacerbation (4) Seizure-like activity Current Visit: Yes Status: Acute Base Code: R56.9 - UNSPECIFIED CONVULSIONS Comment: 06/21/18 -seizure precautions and ativan PRN continued -metabolic issues monitored, CMP unremarkable this morning -Pt needs to be seen by PCP, no driving until evaluated by PCP (5) Chronic back pain Current Visit: No Status: Chronic Qualifiers: Back pain location: low back pain Back pain laterality: bilateral Sciatica presence: without sciatica Qualified Code(s): M54.5 - Low back pain; G89.29 - Other chronic pain Base Code: M54.9 - DORSALGIA, UNSPECIFIED; G89.29 - OTHER CHRONIC PAIN Comment : 06/21/18: chronic, unchanged. continue home medications oxycodone 5mg BID PRN (6) Hypothyroidism Current Visit: No Status: Chronic Qualifiers: Hypothyroidism type: unspecified Qualified Code(s): E03.9 - Hypothyroidism , unspecified Base Code: E03.9 - HYPOTHYROIDISM, UNSPECIFIED Comment: 06/21/18 -TSH 139.3 on 100mch synthroid, increased to 150mcg on severe disease scale and US ordered to r/o other issues (7) DVT prophylaxis Current Visit: No Status: Acute Base Code: [id number] - Comment: 06/21/18 Lovenox 40 mg sq daily, currently on seizure precautions (8) Full code status Current Visit: No Status: Acute Base Code: Z78.9 - OTHER SPECIFIED HEALTH STATUS Comment: 06/21/18 -Pt. is a full code Results - Labs Result Diagrams: 06/19/18 20:48 06/21/18 06:46 Labs Last 24 Hours: Laboratory Results - last 24 hr 06/20/18 06/21/18 06:00 06:46 Sodium 141 Potassium 3.6 Chloride 102 Carbon Dioxide 27.0 Anion Gap 12.0 BUN 14 Creatinine 0.7 Estimated GFR > 60 Random Glucose 98 Calcium 8.6 L Magnesium 2.1 Total T3 54 L - Imaging and Cardiology Chest x-ray Status: Report reviewed, Image reviewed (negative for acute process) DVT/PE Assessment - Risk for VTE Risk for VTE: Yes Risk Level: Moderate Risk Assessment Date: 06/20/18 Risk Assessment Time: 15:34 VTE Orders Placed or Will Be Placed: Yes - Active Medicaitons Current Medications: Current Medications Acetaminophen (Tylenol 325mg) 650 mg PO Q6H PRN PRN Reason: PAIN - MILD TO MODERATE (1-7) Last Admin: 06/20/18 08:47 Dose: 650 mg Albuterol/Ipratropium (Duoneb) 3 ml INH RESP.Q4H.[facility] Last Admin: 06/21/18 17:54 Dose: Not Given Aspirin (Ecotrin (Ec)) 81 mg PO DAILY [facility] Last Admin: 06/21/18 10:00 Dose: 81 mg Atorvastatin Calcium (Lipitor) 40 mg PO DAILY [facility] Last Admin: 06/21/18 10:00 Dose: 40 mg Cefdinir (Cefdinir) 300 mg PO BID [facility] Last Admin: 06/21/18 11:50 Dose: 300 mg Duloxetine HCl (Cymbalta) 90 mg PO DAILY [facility] Last Admin: 06/21/18 10:00 Dose: 90 mg Enoxaparin Sodium (Lovenox) 40 mg SQ DAILY [facility] Last Admin: 06/21/18 10:00 Dose: 40 mg Gabapentin (Neurontin) 300 mg PO TID [facility] Last Admin: 06/21/18 18:27 Dose: 300 mg Gabapentin (Neurontin) 100 mg PO TID [facility] Last Admin: 06/21/18 18:27 Dose: 100 mg Hydralazine HCl (Apresoline) 10 mg IV NOW PRN PRN Reason: HYPERTENSIVE EMERGENCY Hyoscyamine (Levsin Odt) 0.25 mg SL Q4H PRN PRN Reason: ABDOMINAL PAIN Levothyroxine Sodium (Synthroid) 150 mcg PO DAILYTHY [facility] Last Admin: 06/21/18 06:29 Dose: 150 mcg Meloxicam (Mobic) 15 mg PO DAILY [facility] Last Admin: 06/21/18 09:59 Dose: 15 mg Metoprolol Tartrate (Lopressor) 50 mg PO BID [facility] Last Admin: 06/21/18 10:00 Dose: 50 mg Ondansetron HCl (Zofran Odt) 4 mg SL Q8H PRN PRN Reason: NAUSEA/VOMITING Oxycodone HCl (Oxy Ir) 5 mg PO BID PRN PRN Reason: PAIN - MOD TO SEVERE (5-10) Last Admin: 06/21/18 20:18 Dose: 5 mg Pantoprazole Sodium (Protonix) 40 mg PO BID [facility] Last Admin: 06/21/18 10:00 Dose: 40 mg Trazodone HCl (Desyrel) 150 mg PO QHS [facility] Last Admin: 06/20/18 22:35 Dose: Not Given AMI Plan - Labs Result Diagrams: 06/19/18 20:48 06/21/18 06:46
[2018-06-21] MEDS: TRAZODONE 50 MG TABLET PO SCH (21:39)
[2018-06-22] MEDS: OXYCODONE HCL 5 MG TABLET PO PRN ×2 (04:52→14:38)
[2018-06-22] MEDS: IPRATROPIUM/ALBUTEROL (0.5MG/3MG) NEB INH SCH ×5 (06:02→22:03)
[2018-06-22] MEDS: LEVOTHYROXINE SODIUM 150 MCG TABLET PO SCH (06:22)
[2018-06-22 06:56] LABS: BASO % 0.8 % (0-6); EOS % 2.3 % (0-6); GRAN % 41.3 % (47-80); HEMATOCRIT 38.6 % (35.0-47.0); HEMOGLOBIN 11.6 gm/dl (11.6-16.0); LYMPH % 43.8 % (16-45); MEAN CELL VOLUME 95.1 fl (81-97); MEAN CORPUSCULAR HEMOGLOBIN 28.6 pg (27-33); MEAN CORPUSCULAR HGB CONC 30.1 g/dl (32-36); MEAN PLATELET VOLUME 10.6 fl (7.4-10.4); MONO % 11.8 % (0-9); PLATELET COUNT 251 K/uL (130-400); RED BLOOD COUNT 4.06 M/uL (3.80-5.40); RED CELL DISTRIBUTION WIDTH 16.5 % (11.5-14.5); WHITE BLOOD COUNT W/O DIFF 5.2 K/uL (4.2-12.2)
[2018-06-22 07:42] LABS: ALB/GLOB RATIO 1.5 (1.1-1.8); ALBUMIN 3.4 g/dL (4.0-5.0); ALKALINE PHOSPHATASE 82 U/L (45-87); ALT/SGPT 15 U/L (<33); AST/SGOT 20 U/L (10.0-35.0); BLOOD UREA NITROGEN 16 mg/dL (8-23); CREATININE 0.8 mg/dL (0.5-0.9); EST GLOMERULAR FILTRATION RATE > 60 mL/min; GLUCOSE,RANDOM 101 mg/dL (74-109); TOTAL PROTEIN 5.7 g/dL (6.6-8.7)
[2018-06-22] MEDS: FUROSEMIDE IV 20MG/2ML VIAL IVP ONE ×2 (09:36→10:09)
[2018-06-22] MEDS: CEFDINIR 300 MG CAPSULE PO SCH ×2 (09:36→22:13)
[2018-06-22] MEDS: ASPIRIN 81 MG TABEC PO SCH (09:36)
[2018-06-22] MEDS: ENOXAPARIN 40 MG/0.4 ML SYR SQ SCH (09:36)
[2018-06-22] MEDS: ATORVASTATIN 20 MG TABLET PO SCH (09:37)
[2018-06-22] MEDS: GABAPENTIN 100 MG CAPSULE PO SCH ×3 (09:37→22:13)
[2018-06-22] MEDS: METOPROLOL TART 50 MG TABLET PO SCH ×2 (09:37→22:13)
[2018-06-22] MEDS: PANTOPRAZOLE SODIUM 40 MG TABLET PO SCH ×2 (09:37→22:13)
[2018-06-22] MEDS: DULOXETINE HCL 30 MG CAPSULE.DR PO SCH (09:37)
[2018-06-22] MEDS: MELOXICAM 7.5 MG TABLET PO SCH (09:38)
[2018-06-22] MEDS: GABAPENTIN 300 MG CAPSULE PO SCH ×3 (09:38→22:13)
--- NOTE | 2018-06-22 09:55 | Physician Progress Note ---
Subjective - Date Date of Physician Progress Note: 06/22/18 - Subjective Subjective Comment: 06/22/17: BNP was elevated this morning at 1916, chest xray on 06/21 was negative, pt. continues to have expiratory wheeze and musical heart murmur (hx of leaky aortic and mitral valve per pt). Ordered 20mg IV lasix, 12-lead EKG, 2D echo w/ CF, and cardiology consult. Per pt- she is not established with a professional housing consultant at this time, she was last seen by one about 6 months ago and she was advised to f/u in 6mo. Changed diet to low sodium, added 1500ml fluid restriction and daily weights. Objective - Vital Signs Vital Signs: Vital Signs - Last 24 Hrs Temp Pulse Pulse Pulse Resp BP Pulse Ox 06/22/18 09:09 82 16 94 L 06/22/18 09:07 84 16 94 L 06/22/18 08:53 97.6 F 93 H 16 169/76 93 L 06/22/18 08:27 84 20 06/22/18 06:02 71 20 95 06/22/18 03:00 97.6 F 82 16 150/78 95 06/21/18 22:24 80 20 95 06/21/18 22:16 79 22 96 06/21/18 16:00 97.4 F L 91 H 18 138/97 97 - General General Appearance: Alert, Oriented x3, Cooperative, No acute distress Limitations: No limitations - Head Head exam: Atraumatic, Normocephalic, Normal inspection Head exam detail: negative: Abrasion, Contusion, Zayas's sign, General tenderness, Hematoma, Laceration - Eye Eye exam: Normal appearance. negative: Conjunctival injection, Periorbital swelling, Periorbital tenderness, Scleral icterus - ENT ENT exam: Mucous membranes moist Ear exam: negative: Auricular hematoma, Auricular trauma Nasal Exam: negative: Active bleeding, Discharge, Dried blood, Foreign body Mouth exam: negative: Drooling, Laceration, Muffled voice, Tongue elevation Teeth exam: Other (teeth absent) - Neck Neck exam: Normal inspection. negative: Meningismus, Tenderness - Respiratory Respiratory exam: Accessory muscle use, Decreased breath sounds, Prolonged expiratory, Wheezes. negative: Respiratory distress - Cardiovascular Cardiovascular Exam: Regular rate, Normal rhythm, Systolic murmur (musical murmur) Peripheral Pulses: 3+: Radial (R), Radial (L), Dorsalis Pedis (R), Dorsalis Pedis (L) - GI/Abdominal GI/Abdominal exam: Soft, Tenderness, Other (epigastric and suprapubic TTP on examination, no rebound, guarding is present.). negative: Rebound - Rectal Rectal exam: Deferred - exam: Deferred - Extremities Extremities exam: Normal inspection. negative: Calf tenderness, Pedal edema, Tenderness - Back Back exam: Denies: CVA tenderness (R), CVA tenderness (L) - Neurological Neurological exam: Alert, Normal gait, Oriented X3 - Psychiatric Psychiatric exam: Normal affect, Normal mood - Skin Skin exam: Normal color. negative: Abrasion Type of lesion: negative: abrasion Assessment and Plan - Assessment and Plan (1) CHF (congestive heart failure) Current Visit: Yes Status: Acute Base Code: I50.9 - HEART FAILURE, UNSPECIFIED Comment: 06/22/18: -BNP this morning was 1916 -Musical heart murmur, present in both aortic and mitral areas -CXR on 06/21 was negative -Ordered EKG, 2D echo with CF, cardiology consult, 20mg IV lasix (2) UTI (urinary tract infection) Current Visit: Yes Status: Acute Qualifiers: Urinary tract infection type: acute cystitis Hematuria presence: without hematuria Qualified Code(s): N30.00 - Acute cystitis without hematuria Base Code: N39.0 - URINARY TRACT INFECTION, SITE NOT SPECIFIED Comment: -UA positive ER, awaiting c&s -Changed IV rocephin to cefdinir 300mg bid yesterday (avoiding cipro due to possible lowering of seizure threshold) -no elevation WBC, no fever, urine culture pending (3) Hypomagnesemia Current Visit: Yes Status: Acute Base Code: E83.42 - HYPOMAGNESEMIA Comment: 06/22/18 -Resolved (4) Nausea & vomiting Current Visit: Yes Status: Acute Qualifiers: Vomiting type: unspecified Vomiting Intractability: non-intractable Qualified Code(s): R11.2 - Nausea with vomiting, unspecified Base Code: R11.2 - NAUSEA WITH VOMITING, UNSPECIFIED Comment: 06/22/18 -Pt. is now tolerating full sodium restriction diet, denies nausea (5) Seizure-like activity Current Visit: Yes Status: Acute Base Code: R56.9 - UNSPECIFIED CONVULSIONS Comment: 06/22/18 -seizure precautions and ativan PRN continued -metabolic issues monitored, CMP unremarkable this morning -Pt needs to be seen by PCP, no driving until evaluated by PCP (6) Chronic back pain Current Visit: No Status: Chronic Qualifiers: Back pain location: low back pain Back pain laterality: bilateral Sciatica presence: without sciatica Qualified Code(s): M54.5 - Low back pain; G89.29 - Other chronic pain Base Code: M54.9 - DORSALGIA, UNSPECIFIED; G89.29 - OTHER CHRONIC PAIN Comment : 06/22/18: -chronic, unchanged. continue home medications oxycodone 5mg BID PRN (7) Hypothyroidism Current Visit: No Status: Chronic Qualifiers: Hypothyroidism type: unspecified Qualified Code(s): E03.9 - Hypothyroidism , unspecified Base Code: E03.9 - HYPOTHYROIDISM, UNSPECIFIED Comment: 06/22/18 -TSH 139.3 on 100mch synthroid, increased to 150mcg on severe disease scale and US ordered to r/o other issues (8) DVT prophylaxis Current Visit: No Status: Acute Base Code: [id number] - Comment: 06/22/18 Lovenox 40 mg sq daily, currently on seizure precautions (9) Full code status Current Visit: No Status: Acute Base Code: Z78.9 - OTHER SPECIFIED HEALTH STATUS Comment: 06/22/18 -Pt. is a full code Results - Labs Result Diagrams: 06/22/18 06:19 06/22/18 06:23 Labs Last 24 Hours: Laboratory Results - last 24 hr 06/22/18 06/22/18 06/22/18 06:19 06:23 06:23 WBC 5.2 RBC 4.06 Hgb 11.6 Hct 38.6 MCV 95.1 MCH 28.6 MCHC 30.1 L RDW 16.5 H Plt Count 251 MPV 10.6 H Gran % 41.3 L Lymphocytes % 43.8 Monocytes % 11.8 H Eosinophils % 2.3 Basophils % 0.8 Sodium 142 Potassium 3.8 Chloride 102 Carbon Dioxide 29.0 Anion Gap 11.0 BUN 16 Creatinine 0.8 Estimated GFR > 60 Random Glucose 101 Calcium 8.7 L Total Bilirubin 0.30 AST 20 ALT 15 Alkaline Phosphatase 82 NT-Pro-B Natriuret Pep 1916.00 H Total Protein 5.7 L Albumin 3.4 L Globulin 2.3 Albumin/Globulin Ratio 1.5 DVT/PE Assessment - Risk for VTE Risk for VTE: No Risk Level: Moderate Risk Assessment Date: 06/20/18 Risk Assessment Time: 15:34 VTE Orders Placed or Will Be Placed: Yes - Active Medicaitons Current Medications: Current Medications Acetaminophen (Tylenol 325mg) 650 mg PO Q6H PRN PRN Reason: PAIN - MILD TO MODERATE (1-7) Last Admin: 06/20/18 08:47 Dose: 650 mg Albuterol/Ipratropium (Duoneb) 3 ml INH [facility] Last Admin: 06/22/18 09:09 Dose: 3 ml Aspirin (Ecotrin (Ec)) 81 mg PO DAILY [facility] Last Admin: 06/22/18 09:36 Dose: 81 mg Atorvastatin Calcium (Lipitor) 40 mg PO DAILY [facility] Last Admin: 06/22/18 09:37 Dose: 40 mg Cefdinir (Cefdinir) 300 mg PO BID [facility] Last Admin: 06/22/18 09:36 Dose: 300 mg Duloxetine HCl (Cymbalta) 90 mg PO DAILY [facility] Last Admin: 06/22/18 09:37 Dose: 90 mg Enoxaparin Sodium (Lovenox) 40 mg SQ DAILY [facility] Last Admin: 06/22/18 09:36 Dose: 40 mg Gabapentin (Neurontin) 300 mg PO TID [facility] Last Admin: 06/22/18 09:38 Dose: 300 mg Gabapentin (Neurontin) 100 mg PO TID [facility] Last Admin: 06/22/18 09:37 Dose: 100 mg Hydralazine HCl (Apresoline) 10 mg IV NOW PRN PRN Reason: HYPERTENSIVE EMERGENCY Hyoscyamine (Levsin Odt) 0.25 mg SL Q4H PRN PRN Reason: ABDOMINAL PAIN [facility] Last Admin: 06/22/18 06:22 Dose: 150 mcg Meloxicam (Mobic) 15 mg PO DAILY [facility] Last Admin: 06/22/18 09:38 Dose: 15 mg Metoprolol Tartrate (Lopressor) 50 mg PO BID [facility] Last Admin: 06/22/18 09:37 Dose: 50 mg Ondansetron HCl (Zofran Odt) 4 mg SL Q8H PRN PRN Reason: NAUSEA/VOMITING Oxycodone HCl (Oxy Ir) 5 mg PO BID PRN PRN Reason: PAIN - MOD TO SEVERE (5-10) Last Admin: 06/22/18 04:52 Dose: 5 mg Pantoprazole Sodium (Protonix) 40 mg PO BID [facility] Last Admin: 06/22/18 09:37 Dose: 40 mg Trazodone HCl (Desyrel) 150 mg PO QHS [facility] Last Admin: 06/21/18 21:39 Dose: 150 mg AMI Plan - Labs Result Diagrams: 06/22/18 06:19 06/22/18 06:23
--- NOTE | 2018-06-22 14:35 | Rehab Evaluation ---
Patient Information - Patient Information Diagnosis: UTI, nausea, vomiting and diarrhea, abdominal pain Ordered Treatment: OT Evaluate and Treat Status: Initial Evaluation Surgery: No Past Medical/Surgical Hx: PAST MEDICAL/SURGICAL HISTORY Past Surgical History tonsils appendix hysterectomy tumors laminectomy x2 PMH - Respiratory Hx Respiratory Disorders Yes Hx Chronic Obstructive Yes Pulmonary Disease (COPD) Hx Dyspnea Yes Hx Pneumonia Yes Comment: Home O2-5L PMH - Cardiovascular Hx Cardiovascular Disorders Yes Hx Cardiac Catheterization Yes Hx Chest Pain Yes Hx Congestive Heart Failure Yes Hx Hypertension Yes Hx Transient Ischemic Attacks Yes (TIA) Comment: leaky mitral and aortic valve PMH - Neuro Hx Neurological Disorders Yes Hx Dizziness Yes Hx Headaches Yes Hx Seizures No Hx Syncope Yes Hx Transient Ischemic Attacks Yes (TIA) PMH - GI Hx Gastrointestinal Disorders Yes Hx Abdominal Pain Yes Hx Gastrointestinal Bleed Yes Hx Gastroesophageal Reflux Yes Hx Irritable Bowel Yes Hx Obstructive Bowel Yes Hx Ulcer Yes PMH - Hx Genitourinary Disorders Yes Patient No Hx Bladder Problem Yes Hx Urinary Tract Infection Yes Comment: interstitial cystitis PMH - Endocrine Hx Endocrine Disorders Yes Hx Diabetes No Hx Thyroid Disease Yes: hyper PMH - Musculoskeletal Hx Musculoskeletal Disorders Yes Hx Arthritis Yes Hx Back Injury Yes: ruptured disks in neck and lower back Hx Fibromyalgia Yes Comment: stenosis of the spine PMH - Psych Hx Psychiatric Problems Yes Hx Anxiety Yes Hx Depression Yes PMH - Hematology/Oncology Hx Hematology/Oncology No Disorders Premorbid Status: Detail (Pt lives with a family of 3 adults in a one story house with basement, she stays on the first floor. She has 5 steps with 2 railings at the entrance. She has a tub/shower combination and usually stands to shower although she reports the tub has a high side and she has been having difficulty transferring into the tub lately. She has a standard height toilet. She has a 4 wheeled walker that she uses intermittently at home as well as an oxygen concentrator as she uses home oxygen. She is Ind with laundry but she does not have to complete home mgmt or meal prep.) Precautions: [place], Fall, Other (using 2 liters of oxygen) - Time With Patient Total Time Spent With Patient (Min): 35 Treatment Procedures: Detail (OT eval low complexity) Subjective Information - Subjective Information Per Patient Objective Data - Pain Pain Present: Yes (8/10 pain in stomach) - Mental Status Patient Orientation: Oriented x3 - Visual Perception Appears within normal limits for therapeutic activities - ROM Within normal limits ([place] UE AROM WNL) - Strength/Tone Within normal limits ([place] UE strength 4/5) - Coordination Appears within normal limits for therapeutic activities - Bed Mobility Independent (Ind with supine to sit and sit to supine) - Transfers Independent (Ind with sit to stand from EOB) - Balance Balance Sitting: Good Balance Standing: Fair - Sensation Intact - Gait Detail (Pt amb 10 feet with 2 wheeled walker and 2 liters of oxygen. Pt became very fatigued during mobility.) - ADL's/IADL's Detail (Pt reports she is toileting Indly with nursing standing by. She has not attempted any other self care activities as she has not been feeling well.) Therapy Assessment - Therapy Assessment Detail (Pt presents with decreased endurance as well as premorbid difficulty reported with tub transfer. Pt feeling very tired today therefore self care skills were not assessed.) Problem List - Problem List Occupational Therapy Problem List: Detail (1. Decreased endurance with mobility. 2. Need to further assess self care skills.) Goals - Goals Occupational Therapy Goals: 1. Pt will demonstrate improved endurance needed for functional mobility required for IADLs. 2. Pt will be safe and Ind with self care activities. Prognosis - Prognosis Good Plan - Plan Occupational Therapy Plan: OT 2-4 times per week to address self cares, functional mobility and endurance. Recommend home OT upon patient discharge.
--- NOTE | 2018-06-22 14:43 | Rehab Evaluation ---
Patient Information - Patient Information Ordered Treatment: PT Evaluate and Treat Status: Initial Evaluation History: Detail (The patient presented in ED on 06/19/18 with complaints of abdominal pain, nausea and vommiting. Patient was admitted to the inpatient floor.) Past Medical/Surgical Hx: PAST MEDICAL/SURGICAL HISTORY Past Surgical History tonsils appendix hysterectomy tumors laminectomy x2 PMH - Respiratory Hx Respiratory Disorders Yes Hx Chronic Obstructive Yes Pulmonary Disease (COPD) Hx Dyspnea Yes Hx Pneumonia Yes Comment: Home O2-5L PMH - Cardiovascular Hx Cardiovascular Disorders Yes Hx Cardiac Catheterization Yes Hx Chest Pain Yes Hx Congestive Heart Failure Yes Hx Hypertension Yes Hx Transient Ischemic Attacks Yes (TIA) Comment: leaky mitral and aortic valve PMH - Neuro Hx Neurological Disorders Yes Hx Dizziness Yes Hx Headaches Yes Hx Seizures No Hx Syncope Yes Hx Transient Ischemic Attacks Yes (TIA) PMH - GI Hx Gastrointestinal Disorders Yes Hx Abdominal Pain Yes Hx Gastrointestinal Bleed Yes Hx Gastroesophageal Reflux Yes Hx Irritable Bowel Yes Hx Obstructive Bowel Yes Hx Ulcer Yes PMH - Hx Genitourinary Disorders Yes Patient No Hx Bladder Problem Yes Hx Urinary Tract Infection Yes Comment: interstitial cystitis PMH - Endocrine Hx Endocrine Disorders Yes Hx Diabetes No Hx Thyroid Disease Yes: hyper PMH - Musculoskeletal Hx Musculoskeletal Disorders Yes Hx Arthritis Yes Hx Back Injury Yes: ruptured disks in neck and lower back Hx Fibromyalgia Yes Comment: stenosis of the spine PMH - Psych Hx Psychiatric Problems Yes Hx Anxiety Yes Hx Depression Yes PMH - Hematology/Oncology Hx Hematology/Oncology No Disorders Premorbid Status: Detail (Prior to admission the patient was using home O2 and ambulating at times with a 4 wheeled walker. The patient was not ambulating community distances.) Social History: Detail (The patient lives with 3 adults in a one story house with 5 steps at the enterance with 2 handrails. The bathroom was equipped with: a tub/shower combination ( with glass door) which she reports is difficult to get into due to a high step and a standard toilet. No grab bars are present in the bathroom. The patient does laundry but has assistance making meals. The patient has a 4 wheeled walker.) Precautions: [place], Fall - Time With Patient Total Time Spent With Patient (Min): 25 Treatment Procedures: Detail (Initial Evaluation.) Subjective Information - Subjective Information Per Patient (The patient had complaints of abdominal pain level 8 at the highest.) Objective Data - Mental Status Patient Orientation: Oriented x3 - Visual Perception Appears within normal limits for therapeutic activities - ROM Within normal limits (The patient's LE AROM is WFL.) - Strength/Tone Not within normal limits (The patient's bilateral LE strength was: hip flexors 4 -/5, hip abductors, adductors 4/5, knee musculature 4-/5, ankle musculatue 4/5.) - Bed Mobility Independent (The patient was independent with supine to and from sit transfer.) - Transfers Independent (The patient was independent with sit to and from stand transfer.) - Balance Balance Sitting: Good Balance Standing: Fair (The patient required support of walker to stand. The patient's balance using an objective balance test was not completed due to patient's fatigue with eval.) - Sensation Intact - Gait Detail (The patient ambulated with front wheeled walker with two wheeled walker a distance of 10 feet x 1 and CG/supervision for safety due to occasional unsteadiness especially when turning. No shortness of breath was noted, however the patient was fatigued after ambulating.) Therapy Assessment - Therapy Assessment Detail (The patient exhibited decreased LE strength and decreased ability to complete prolonged physical activity. The patient was unsteady with ambulation. Feel the patient would benefit from PT to increase LE strength to improve stability of gait and improve over all functional ability. Home PT is recommended when patient is discharged from [facility].) Problem List - Problem List Physical Therapy Problem List: Detail (1) Decreased LE strength 2) Decreased ability to complete prolonged physical activity 3) Unsteady gait pattern) Goals - Goals Physical Therapy Goals: 1) Increase LE strength 1/3 muscle grade to increase stability of gait. 2) The patient will ambulate household distances with appropriate assistive device with steady gait pattern and O 2. 3) The patient will tolerate 15 to 20 minutes of physical activity with one rest period. Prognosis - Prognosis Moderate Plan - Plan Physical Therapy Plan: PT 1 time a day M-F for gait training and LE strengthening exercises.
[2018-06-22] MEDS: TRAZODONE 50 MG TABLET PO SCH (22:13)
[2018-06-22] MEDS: ACETAMINOPHEN 325 MG TAB PO PRN (22:16)
[2018-06-23] MEDS: OXYCODONE HCL 5 MG TABLET PO PRN ×2 (00:08→09:36)
[2018-06-23] MEDS: IPRATROPIUM/ALBUTEROL (0.5MG/3MG) NEB INH SCH ×2 (05:21→09:53)
[2018-06-23] MEDS: LEVOTHYROXINE SODIUM 150 MCG TABLET PO SCH (06:13)
[2018-06-23 06:32] LABS: BLOOD UREA NITROGEN 22 mg/dL (8-23); CREATININE 0.8 mg/dL (0.5-0.9); EST GLOMERULAR FILTRATION RATE > 60 mL/min; GLUCOSE,RANDOM 103 mg/dL (74-109)
[2018-06-23] MEDS: ATORVASTATIN 20 MG TABLET PO SCH (09:35)
[2018-06-23] MEDS: GABAPENTIN 100 MG CAPSULE PO SCH (09:35)
[2018-06-23] MEDS: GABAPENTIN 300 MG CAPSULE PO SCH (09:35)
[2018-06-23] MEDS: METOPROLOL TART 50 MG TABLET PO SCH (09:35)
[2018-06-23] MEDS: MELOXICAM 7.5 MG TABLET PO SCH (09:35)
[2018-06-23] MEDS: PANTOPRAZOLE SODIUM 40 MG TABLET PO SCH (09:36)
[2018-06-23] MEDS: DULOXETINE HCL 30 MG CAPSULE.DR PO SCH (09:36)
[2018-06-23] MEDS: ACETAMINOPHEN 325 MG TAB PO PRN (09:36)
[2018-06-23] MEDS: CEFDINIR 300 MG CAPSULE PO SCH (09:36)
[2018-06-23] MEDS: ASPIRIN 81 MG TABEC PO SCH (09:36)
[2018-06-23] MEDS: ENOXAPARIN 40 MG/0.4 ML SYR SQ SCH (09:43)
[2018-06-23] MEDS ORDERED: FUROSEMIDE IV 20MG/2ML VIAL IVP SCH (10:00)
--- NOTE | 2018-06-23 10:20 | Discharge Summary ---
Providers Discharge Summary Date: 06/23/18 Date of admission: 06/20/18 02:00 Expected Date of Discharge: 06/23/18 Attending physician: EARL LINARES Primary care physician: WALLY WEISS M.D. Consults: Consult Orders 06/22/18 08:41 Consult - Cardiology NOW Consulting Provider: MOO KENT Physician Instructions: Reason For Exam: congestive heart failure Does pt have current electric power line examiner?: Not Established Physical Exam - Vital Signs Vital Signs: Vital Signs - Last 24 Hrs Temp Pulse Pulse Pulse Resp BP BP 06/23/18 10:06 86 18 06/23/18 09:54 86 18 06/23/18 06:00 97.7 F 70 18 164/78 06/23/18 05:21 72 97 H 06/22/18 22:00 97.2 F L 80 81 146/69 06/22/18 17:12 80 18 06/22/18 13:24 72 18 Pulse Ox 06/23/18 10:06 97 06/23/18 09:54 99 06/23/18 06:00 98 06/23/18 05:21 16 L 06/22/18 22:00 97 06/22/18 17:12 94 L 06/22/18 13:24 97 - General General Appearance: Alert, Oriented x3, Cooperative, No acute distress Limitations: No limitations - Head Head exam: Atraumatic, Normocephalic, Normal inspection Head exam detail: negative: Abrasion, Contusion, Zayas's sign, General tenderness, Hematoma, Laceration - Eye Eye exam: Normal appearance. negative: Conjunctival injection, Periorbital swelling, Periorbital tenderness, Scleral icterus - ENT ENT exam: Mucous membranes moist Ear exam: negative: Auricular hematoma, Auricular trauma Nasal Exam: negative: Active bleeding, Discharge, Dried blood, Foreign body Mouth exam: negative: Drooling, Laceration, Muffled voice, Tongue elevation Teeth exam: Other (teeth absent) - Neck Neck exam: Normal inspection. negative: Meningismus, Tenderness - Respiratory Respiratory exam: Accessory muscle use, Decreased breath sounds, Prolonged expiratory, Wheezes. negative: Respiratory distress - Cardiovascular Cardiovascular Exam: Regular rate, Normal rhythm, Systolic murmur (musical murmur) Peripheral Pulses: 3+: Radial (R), Radial (L), Dorsalis Pedis (R), Dorsalis Pedis (L) - GI/Abdominal GI/Abdominal exam: Soft, Tenderness, Other (epigastric and suprapubic TTP on examination, no rebound, guarding is present.). negative: Rebound - Rectal Rectal exam: Deferred - exam: Deferred - Extremities Extremities exam: Normal inspection. negative: Calf tenderness, Pedal edema, Tenderness - Back Back exam: Denies: CVA tenderness (R), CVA tenderness (L) - Neurological Neurological exam: Alert, Normal gait, Oriented X3 - Psychiatric Psychiatric exam: Normal affect, Normal mood - Skin Skin exam: Normal color. negative: Abrasion Type of lesion: negative: abrasion Hospitalization - Hospitalization Admission Diagnosis: UTI. Nausea, Vomiting, Diarrhea. Abdominal pain - Problem List/Discharge Diagnosis (1) CHF (congestive heart failure) Current Visit: Yes Status: Acute Base Code: I50.9 - HEART FAILURE, UNSPECIFIED Comment: 06/23/18: -Pt. was seen by Dr. Kent yesterday, he recommendes OP f/u in 2 weeks, as well as lasix 20mg daily, continue metoprolol 20mg bid, add lisinopril 10mg daily, no ASA or atorvastatin (no hx of CAD), repeat echo in 6mo. Echo completed on 06/22 and showed left ventricular grade 2 diastolic dysfunction, EF 55-60%, mild mitral annular calcification, trace mitral regurgitation, mild mitral stenosis, moderate aortic regurge, mild aortic stenosis, mild tricuspid regurge, normal pulmonary pressures. (2) UTI (urinary tract infection) Current Visit: Yes Status: Acute Discharge Diagnosis: Urinary tract infection type: acute cystitis Hematuria presence: without hematuria Qualified Code(s): N30.00 - Acute cystitis without hematuria Base Code: N39.0 - URINARY TRACT INFECTION, SITE NOT SPECIFIED Comment: -UA positive ER, culture pos for klebsiella pneumoniae- sensitivity pending -Continue cefdinir 300mg bid for total 7 days therapy (3) Hypomagnesemia Current Visit: Yes Status: Acute Base Code: E83.42 - HYPOMAGNESEMIA Comment: 06/23/18 -Resolved (4) Nausea & vomiting Current Visit: Yes Status: Acute Discharge Diagnosis: Vomiting type: unspecified Vomiting Intractability: non-intractable Qualified Code(s): R11.2 - Nausea with vomiting, unspecified Base Code: R11.2 - NAUSEA WITH VOMITING, UNSPECIFIED Comment: 06/23/18 -Pt. is now tolerating full sodium restriction diet, denies nausea (5) Seizure-like activity Current Visit: Yes Status: Acute Base Code: R56.9 - UNSPECIFIED CONVULSIONS Comment: 06/23/18 -CMP remains stable -Pt needs to be seen by PCP, no driving until evaluated by PCP (6) Chronic back pain Current Visit: No Status: Chronic Discharge Diagnosis: Back pain location: low back pain Back pain laterality: bilateral Sciatica presence: without sciatica Qualified Code(s): M54.5 - Low back pain; G89.29 - Other chronic pain Base Code: M54.9 - DORSALGIA, UNSPECIFIED; G89.29 - OTHER CHRONIC PAIN Comment : 06/23/18: -chronic, unchanged. Continue home medications oxycodone 5mg BID PRN (7) Hypothyroidism Current Visit: No Status: Chronic Discharge Diagnosis: Hypothyroidism type: unspecified Qualified Code(s): E03.9 - Hypothyroidism , unspecified Base Code: E03.9 - HYPOTHYROIDISM, UNSPECIFIED Comment: 06/23/18 -TSH 139.3 on 100mch synthroid, increased to 150mcg on severe disease scale - Thyroid US negative (8) DVT prophylaxis Current Visit: No Status: Acute Base Code: [id number] - Comment: 06/23/18 -Will not continue dvt prophylaxis for d/c, pt to return to normal level of activity (9) Full code status Current Visit: No Status: Acute Base Code: Z78.9 - OTHER SPECIFIED HEALTH STATUS Comment: 06/23/18 -Pt. is a full code - Hospitalization Course Disposition: Home, Self-Care Hospital Course: 62 yo female presents for N/V/D and abd pain. No other sick contacts, has not eaten out, only public contact was going to grocery store this week. Pt is O2 dependent, reporting 5 L NS all the time but still smokes 1ppd and currently not seeking smoking cessation assistance. PMH COPD, CHF, behavioral health issues, back pain, interstitial cystitis. 06/19/18 -Pt presented to ER via EMS for N/V/D and abd pain. Diffuse abd cramping and diarrhea that started yesterday, denies sick contacts. BP 162/92, HR 97, RR 28, 98% 5L NC (home o2), 98.3F, dyspnea improved after arrival to the floor. WBC 10.4, Hgb 13.8, Hct 43.4, Plt 375 Na 141, K 4.3, Cl 94, CO2 24, anion gap 23, BUN 24, Cr 0.7, GFR>60, LFTs normal , CK 77 UA positive for UTI Cdiff culture pending collection CT abd /pelvis neg for acute process. Admitted for N/V/D abd pain, UTI Given Cipro IVPB ER approx 0100 pt had neurological event that was seizure like. Rapid response was called, ER attended. Per nursing notes, pt was breathing on her own, did not lose bowel or bladder control, and regained responsiveness without excessive delay Lactic acid 7.1 0110, repeat 0305 1.3 Pt was given ativan IVP, fluids and placed on seizure precautions. 06/20/18 Pt resting in bed, no distress noted, seizure pads present. Pt is alert and oriented but has difficulty remembering the activities from last night. Pt has end stage COPD, 5L nc at home and still smokes 1ppd. Lung sounds diminished, wheezes through out. BS x4, tenderness to epigastric and suprapubic area, no masses noted. Pt req to get out of bed to the chair but this was declined r/t recent seizure like activity. Heart RRR, pulses +3 Radial, PT/DP Labs ordered and reviewed TSH 139, Mag 1.4, UDS neg other than thc. MAPS positive for oxycodone 5mg BID for back pain, pt reports running out of meds 06/12/18 and had OV scheduled today to get refill. Denies excessive ETOH consumption. Skin is pwd during assessment. POC, continue seizure precautions, mag supplement ordered, increased synthroid on the severe disease scale from 100mcg to 150mcg ([place] thyroid not available this facility), trialed CLD but pt unable to tolerate. Changed IVF to D5 1/2N with 20 mEq @125 until able to tolerate PO. Continue IVP zofran PRN. Pain meds ordered per MAPS. C Diff culture pending collection, no known stool since arrival to floor. Ativan IVP PRN for seizure like activity remains, changed from anx PRN to seizure only PRN. ABX changed to rocpehin r/t recent seizure like activity. pt reports tolerance of Keflex in the past. 06/22/17: BNP was elevated this morning at 1916, chest xray on 06/21 was negative, pt. continues to have expiratory wheeze and musical heart murmur (hx of leaky aortic and mitral valve per pt). Ordered 20mg IV lasix, 12-lead EKG, 2D echo w/ CF, and cardiology consult. Per pt- she is not established with a electric power line examiner at this time, she was last seen by one about 6 months ago and she was advised to f/u in 6mo. Changed diet to low sodium, added 1500ml fluid restriction and daily weights. 06/23/18: Pt. was seen by Dr. Kent yesterday, he recommendes OP f/u in 2 weeks, as well as lasix 20mg daily, continue metoprolol 20mg bid, add lisinopril 10mg daily, no ASA or atorvastatin (no hx of CAD), repeat echo in 6mo. Echo completed on 06/22 and showed left ventricular grade 2 diastolic dysfunction, EF 55-60%, mild mitral annular calcification, trace mitral regurgitation, mild mitral stenosis, moderate aortic regurge, mild aortic stenosis, mild tricuspid regurge, normal pulmonary pressures. PT/OT evals completed on 06/22- home PT was recommended for LE weakness, however, pt refuses home PT at this time. Urine culture pos for klebsiella pneumoniae, sensitivity pending. PCP appt moved up to 07/06/18. Plan to d/c home today. PCP [place] [facility] Procedures: Imaging and X-Rays 06/19/18 20:54 ABDOMEN/PELVIS W CONTRAST [CT] Stat 06/20/18 01:07 HEAD WO CONTRAST [CT] Stat 06/20/18 15:46 THYROID, ST Head Neck [US] Stat 06/21/18 09:21 CHEST 2 VIEWS [RAD] Stat Cardiology Procedures 06/20/18 02:01 Telemetry [Principal Java Software Engineer] .Continuous 06/22/18 08:38 Echo W/CF & Cardiac Doppler NOW 06/22/18 08:44 EKG NOW Abnormal Labs: Abnormal Lab Results 06/19/18 06/19/18 06/19/18 Range/Units 20:48 20:48 20:55 MCHC 31.8 L (32-36) g/dl RDW 16.9 H (11.5-14.5) % MPV (7.4-10.4) fl Gran % (47-80) % Monocytes % (0-9) % Chloride 94 L (98-107) mmol/L Carbon Dioxide (22-29) mmol/L Anion Gap 23.0 H (7-16) BUN 24 H (8-23) mg/dL Lactic Acid (0.5-2.2) mmol/L Calcium (8.8-10.2) mg/dL Magnesium (1.6-2.4) mg/dL Alkaline Phosphatase 115 H (45-87) U/L NT-Pro-B Natriuret Pep (<125) pg/mL Total Protein (6.6-8.7) g/dL Albumin (4.0-5.0) g/dL TSH (0.270-4.20) uIU/mL Thyroxine (T4) (4.5-11.7) ug/dL Total T3 (87-178) ng/dL Urine Protein 30 mg/dl H (NEGATIVE) Urine Ketones 40 mg/dl H (NEGATIVE) Urine Nitrite Positive H (NEGATIVE) 06/20/18 06/20/18 06/20/18 Range/Units 01:10 06:00 06:00 MCHC (32-36) g/dl RDW (11.5-14.5) % MPV (7.4-10.4) fl Gran % (47-80) % Monocytes % (0-9) % Chloride (98-107) mmol/L Carbon Dioxide (22-29) mmol/L Anion Gap (7-16) BUN (8-23) mg/dL Lactic Acid 7.1 H (0.5-2.2) mmol/L Calcium (8.8-10.2) mg/dL Magnesium 1.4 L (1.6-2.4) mg/dL Alkaline Phosphatase (45-87) U/L NT-Pro-B Natriuret Pep (<125) pg/mL Total Protein (6.6-8.7) g/dL Albumin (4.0-5.0) g/dL TSH 139.30 H (0.270-4.20) uIU/mL Thyroxine (T4) (4.5-11.7) ug/dL Total T3 (87-178) ng/dL Urine Protein (NEGATIVE) Urine Ketones (NEGATIVE) Urine Nitrite (NEGATIVE) 06/20/18 06/20/18 06/21/18 Range/Units 06:00 06:00 06:46 MCHC (32-36) g/dl RDW (11.5-14.5) % MPV (7.4-10.4) fl Gran % (47-80) % Monocytes % (0-9) % Chloride (98-107) mmol/L Carbon Dioxide (22-29) mmol/L Anion Gap (7-16) BUN (8-23) mg/dL Lactic Acid (0.5-2.2) mmol/L Calcium 8.6 L (8.8-10.2) mg/dL Magnesium (1.6-2.4) mg/dL Alkaline Phosphatase (45-87) U/L NT-Pro-B Natriuret Pep (<125) pg/mL Total Protein (6.6-8.7) g/dL Albumin (4.0-5.0) g/dL TSH (0.270-4.20) uIU/mL Thyroxine (T4) 4.02 L (4.5-11.7) ug/dL Total T3 54 L (87-178) ng/dL Urine Protein (NEGATIVE) Urine Ketones (NEGATIVE) Urine Nitrite (NEGATIVE) 06/22/18 06/22/18 06/22/18 Range/Units 06:19 06:23 06:23 MCHC 30.1 L (32-36) g/dl RDW 16.5 H (11.5-14.5) % MPV 10.6 H (7.4-10.4) fl Gran % 41.3 L (47-80) % Monocytes % 11.8 H (0-9) % Chloride (98-107) mmol/L Carbon Dioxide (22-29) mmol/L Anion Gap (7-16) BUN (8-23) mg/dL Lactic Acid (0.5-2.2) mmol/L Calcium 8.7 L (8.8-10.2) mg/dL Magnesium (1.6-2.4) mg/dL Alkaline Phosphatase (45-87) U/L NT-Pro-B Natriuret Pep 1916.00 H (<125) pg/mL Total Protein 5.7 L (6.6-8.7) g/dL Albumin 3.4 L (4.0-5.0) g/dL TSH (0.270-4.20) uIU/mL Thyroxine (T4) (4.5-11.7) ug/dL Total T3 (87-178) ng/dL Urine Protein (NEGATIVE) Urine Ketones (NEGATIVE) Urine Nitrite (NEGATIVE) 06/23/18 Range/Units 06:10 MCHC (32-36) g/dl RDW (11.5-14.5) % MPV (7.4-10.4) fl Gran % (47-80) % Monocytes % (0-9) % Chloride (98-107) mmol/L Carbon Dioxide 33.0 H (22-29) mmol/L Anion Gap (7-16) BUN (8-23) mg/dL Lactic Acid (0.5-2.2) mmol/L Calcium (8.8-10.2) mg/dL Magnesium (1.6-2.4) mg/dL Alkaline Phosphatase (45-87) U/L NT-Pro-B Natriuret Pep (<125) pg/mL Total Protein (6.6-8.7) g/dL Albumin (4.0-5.0) g/dL TSH (0.270-4.20) uIU/mL Thyroxine (T4) (4.5-11.7) ug/dL Total T3 (87-178) ng/dL Urine Protein (NEGATIVE) Urine Ketones (NEGATIVE) Urine Nitrite (NEGATIVE) Condition at Discharge: (2) Stable VTE Discharge VTE Reason For No Overlap Therapy: Not Indicated Discharge Medications - Discharge Medications Prescriptions: Cefdinir 300 mg PO BID #8 capsule Furosemide [Lasix] 20 mg PO QAM #30 tablet Lisinopril 10 mg PO DAILY #30 tab Metoprolol Tartrate [Lopressor] 50 mg PO BID 30 Days #60 tablet Home Medications: Ambulatory Orders Albuterol Sulfate [Ventolin Hfa] 2 puff INH RESP.Q4H.WA 07/11/14 [Last Taken 12/28] Levothyroxine Sodium [Synthroid] 100 mcg PO DAILY 07/11/14 [Last Taken 02/18/17] Omeprazole [Prilosec] 20 mg PO BID 07/11/14 [Last Taken 02/18/17] Trazodone HCl [Desyrel] 150 mg PO QHS 07/11/14 [Last Taken 02/18/17] Duloxetine HCl [Cymbalta] 90 mg PO DAILY 03/05/16 [Last Taken 02/18/17] Hydroxyzine Pamoate [Vistaril] 50 mg PO Q8H PRN 03/05/16 [Last Taken 02/18/17] Gabapentin [Neurontin] 400 mg PO TIDAC 10/03/16 [Last Taken 02/18/17] Meloxicam [Mobic] 15 mg PO QHS 10/03/16 [Last Taken 02/18/17] Tiotropium [place] [Spiriva] 1 inh INH DAILY 02/18/17 [Last Taken 02/18/17] Ipratropium/Albuterol [Duoneb] 3 ml INH RESP.Q4H.WA #120 02/20/17 [Last Taken Unknown] Cholecalciferol (Vitamin D3) [Vitamin D3] 2,000 unit PO DAILY 06/19/18 [Last Taken Unknown] Cefdinir 300 mg PO BID #8 capsule 06/23/18 [Last Taken Unknown] Furosemide [Lasix] 20 mg PO QAM #30 tablet 06/23/18 [Last Taken Unknown] Lisinopril 10 mg PO DAILY #30 tab 06/23/18 [Last Taken Unknown] Metoprolol Tartrate [Lopressor] 50 mg PO BID 30 Days #60 tablet 06/23/18 [Last Taken Unknown] Discharge Plan - Discharge Instructions Activity at Discharge: As Per Physical Therapy Diet at Discharge: Low Salt Diet Instructions: Acute Nausea and Vomiting (ED) Additional Instructions: Appointment at the [place] [facility] on July 06 at 12:[address] Weiss. If the doctor would like to see you sooner, they will call to move your appointment up. Follow up with Dr Kent July 06 at 2:45pm/[facility] Resume cefdinir 300mg twice daily until complete (antibiotic). First home dose tonight. Start lasix 20mg every morning (water pill to help congestive heart failure) Continue metoprolol 50mg twice daily (beta reji for hypertension) Start lisinopril 10mg daily (for hypertension) Discontinue aspirin and atorvastatin (per Dr. Kent, no need to continue) Return to the ED if your symptoms worsen, or if you experience any weight gain of more than 5 pounds in 7 days, or for any chest pain. Quality Measures - Quality Measures Quality Measures: Documentation of Current Medications in Medical Record, Heart Failure, Screening for High Blood Pressure and F/U Documented - Current Medications Quality Measure: Measure #130: Documentation of Current Medications Documentation of Current Medications: <Current Medications Documented/Reviewed> [G8427] - Blood Pressure Screening Quality Measure: Screening for High Blood Pressure and Follow-Up Documented Does Patient Have Any of the Following: Active Dx of HTN Blood Pressure Classification: Pre-Hypertensive BP Reading Systolic Measurement: 159 Diastolic Measurement: 80 Screening for High Blood Pressure: Patient Exclusion, Hx of HTN [G9744] - Heart Failure (MICHAEL/ARB Therapy) Quality Measure: Heart Failure Left Ventricular Systolic Function: Unknown MICHAEL Inhibitor or ARB Therapy for LVSD: Not Eligible - Heart Failure (Beta-reji Therapy) Quality Measure: Heart Failure Left Ventricular Systolic Function: Unknown Beta-Reji Therapy for LVEF < 40%: Not Eligible - Elder Abuse Suspicion Index EASI Reference Information: Armando MONTOYA, Joana C, Rachael D, Pepe Campbell.Development and validation of a tool to assist physicians identification of elder abuse: The Elder Abuse Suspicion Index (EASI ). Journal of Elder Abuse and Neglect, 2008; 20 (3): 276-300.
--- NOTE | 2018-06-23 11:10 | Physical Therapy Tx Note ---
Physical Therapy Tx Note - Treatment Note Total Time Spent With Patient: 10 Physical Therapy Tx Note: Detail (Pt sitting up at edge of bed upon arrival, had been seen by Respiratory Therapy and PA. States she is being discharged home today. Nrsg reports that she has been up walking to/from bathroom w/front wheeled walker w/no difficulty. Pt states she has no concerns re: going home in terms of mobility and self-care; states she has a "real good" helper who is the person coming to get her today. She also states that she is not interested in home therapy at this time, that she's had it many times in the past and doesn 't feel like she needs it.) Physical Therapy Problem List: Detail (1) Decreased LE strength 2) Decreased ability to complete prolonged physical activity 3) Unsteady gait pattern) Physical Therapy Goals: 1) Increase LE strength 1/3 muscle grade to increase stability of gait. 2) The patient will ambulate household distances with appropriate assistive device with steady gait pattern and O 2. 3) The patient will tolerate 15 to 20 minutes of physical activity with one rest period. Physical Therapy Plan: Pt is discharged from PT at this time in anticipation of patient being discharged home today.
--- NOTE | 2018-06-23 12:45 | Cardiology Consult ---
DATE OF CONSULTATION: 06/22/18 REASON FOR CONSULTATION: Congestive heart failure. HISTORY: Ms. Boyd Joaquin is a [id number] female who presented to [facility] on 06/20/18 with complaints of nausea, vomiting, diarrhea and abdominal discomfort. She states she has had the nausea and vomiting for a couple of days prior to presentation. She has a history for heart failure with preserved ejection fraction. She continues to smoke a half to one pack per day. She has no history of coronary artery disease. Cardiac catheter[facility] on 10/08/16 at [facility] demonstrated no coronary artery disease and normal ejection fraction. She also notes increasing shortness of breath for approximately forty-eight hours prior to presentation. She denies angina, palpitations, TIA or syncope. PAST MEDICAL HISTORY: Includes heart failure with preserved ejection fraction and hypertension. PAST SURGICAL HISTORY: Includes appendectomy, tonsillectomy, hysterectomy, tubal ligation, laminectomy times two and bladder surgery. MEDICATIONS: At home included Cholate calciferol 2,000 units daily, she states she did take furosemide 10 mg daily, Levothyroxine 100 mcg daily, metoprolol tartrate 50 mg b.i.d., Atorvastatin 40 mg q.h.s., Neurontin 400 mg t.i.d., and aspirin 81 mg daily. SOCIAL HISTORY: She does smoke currently a half pack per day, but used to smoke more than one pack a day. FAMILY HISTORY: Mother and father have no history of coronary artery disease. PHYSICAL EXAMINATION: Her temperature is 97.1, blood pressure is 174/72, pulse is in the 90's and respirations are 19. She is a 98% on pulse oximetry. Lungs are clear to auscultation. Cardiac exam demonstrates a 3/5 diastolic murmur. Abdomen is obese. Extremities reveal no edema. Vascular carotid upstrokes are normal. There is no carotid bruit. White count was 10.4, hemoglobin was 13.8, platelets were 375,000, sodium was 141, potassium was 4.3, BUN was 24, creatinine was 0.7. She has a Pro-BNP which was 1,916. EKG on 06/20/18 demonstrated sinus rhythm with no significant abnormalities. FINAL IMPRESSION: HEART FAILURE WITH PRESERVED EJECTION FRACTION. MS. BOYD JOAQUIN IS A 62- YEAR-OLD FEMALE WHO PRESENTS WITH ABDOMINAL COMPLAINTS CONSISTENT WITH VIRAL GASTRITIS. SHE IS BEING TREATED FOR A URINARY TRACT INFECTION. IN ADDITION, SHE HAS ACUTE DIASTOLIC CONGESTIVE HEART FAILURE WITH ELEVATED PRO-BNP AND DYSPNEA. AGREE WITH FUROSEMIDE 20 MG IV AND CAN SWITCH TO ORAL STARTING TOMORROW. SHE LIKELY SHOULD BE DISCHARGED WITH FUROSEMIDE 20 MG DAILY. SHE WILL REQUIRE OPTIMAL BLOOD PRESSURE CONTROL. WOULD RECOMMEND CONTINUING METOPROLOL TARTRATE 50 MG B.I.D. SHE CAN BE INITIATED ON LISINOPRIL 10 MG DAILY AND TITRATED FOR OPTIMAL BLOOD PRESSURE CONTROL. SHE DOES NOT REQUIRE ASPIRIN THERAPY SINCE SHE HAS NO HISTORY OF CORONARY ARTERY DISEASE. IN ADDITION, ATORVASTATIN CAN BE DISCONTINUED DUE TO NO KNOWN CORONARY ARTERY DISEASE. ECHOCARDIOGRAM TODAY DEMONSTRATED NORMAL EJECTION FRACTION WITH MODERATE AORTIC REGURGITATION AND MILD TO MODERATE MITRAL STENOSIS. WILL RECOMMEND OUTPATIENT FOLLOW-UP WITH [facility] IN TWO WEEKS. WILL PLAN TO REPEAT AN ECHOCARDIOGRAM IN SIX MONTHS TO ONE YEAR'S TIME. Thank you for this consultation. JOB NUMBER: [id number] MTDD
== END 2018-06-23 14:50 | disposition home or self-care (01) | DRG 690 ==
LOC: ER 20:38 → MEDSURG 06-20 00:30 → UNDOADMOB 06-20 00:30 → OBSVTOIN 06-20 02:00 → MEDSURG 06-20 02:00
PROVIDERS: ADMIT Internal Medicine; ATTEND Internal Medicine
DX: N30.00 Acute cystitis without hematuria (principal); R56.9 Unspecified convulsions; I50.9 Heart failure, unspecified; E83.42 Hypomagnesemia; M54.5 Low back pain; G89.29 Other chronic pain; R10.84 Generalized abdominal pain; R19.7 Diarrhea, unspecified; E03.9 Hypothyroidism, unspecified; J44.9 Chronic obstructive pulmonary disease, unspecified; I10 Essential (primary) hypertension; E05.90 Thyrotoxicosis, unspecified without thyrotoxic crisis or storm; K21.9 Gastro-esophageal reflux disease without esophagitis; M79.7 Fibromyalgia; F17.210 Nicotine dependence, cigarettes, uncomplicated; F12.90 Cannabis use, unspecified, uncomplicated; Z86.73 Personal history of transient ischemic attack (TIA), and cerebral infarction without residual deficits
CPT/HCPCS: 70450; 71046; 74177; 76536; 80048; 80053; 80305; 81001; 82550; 83605; 83690; 83735; 83880; 84436; 84443; 84480; 85025; 93005; 93306; 94010; 94640; 94760; 94761; 96361; 96365; 96375; 99223; 99233; 99239; 99285; J0696; J1650; J1940; J2270; J2405; J3480; J7030

== ENCOUNTER 2019-01-05 18:09 | Emergency (ER) | payer MEDICAID ==
[2019-01-05] MEDS ORDERED: IPRATROPIUM/ALBUTEROL (0.5MG/3MG) NEB INH ONE (18:19)
[2019-01-05] MEDS ORDERED: METHYLPREDNISOLONE PF 125MG/VIAL IVP ONE (18:19)
--- NOTE | 2019-01-05 18:25 | Emergency Department Record ---
History of Present Illness - General Source: Patient, EMS Mode of Arrival: Stretcher Limitations: No limitations - History of Present Illness Initial Comments: Pt from home by EMS for LILLIE. Pt with O2 dependant COPD and is a daily smoker. Started smoking at 12 yrs old and now smokes 1/2ppd. She has anon productive cough with fevers "last weekend". There is no CP. She uses 3.5L NC at home "but not when I smoke". There are two other smokers in the home. She is using her inhalers including Advair. No oral steroids. <London Diamond L - Last Filed: 01/05/19 18:57> <Magda Hoang - Last Filed: 01/05/19 19:24> - General Chief Complaint: Shortness of breath Stated Complaint: LILLIE Time Seen by Provider: 01/05/19 18:19 - Related Data Previous Rx's Medication Instructions Recorded Furosemide [Lasix] 20 mg PO QAM #30 tablet 06/23/18 Lisinopril 10 mg PO DAILY #30 tab 06/23/18 Metoprolol Tartrate [Lopressor] 50 mg PO BID 30 Days #60 tablet 06/23/18 Doxycycline Monohydrate 100 mg PO BID 7 Days #14 tablet 01/05/19 Ipratropium/Albuterol [Duoneb] 3 ml INH RESP.Q4H.WA #120 ampul.neb 01/05/19 Prednisone [Prednisone 20Mg] 20 mg PO DAILY 6 Days #9 tab 01/05/19 Allergies Allergy/AdvReac Type Severity Reaction Status Date / Time haloperidol [From Haldol] Allergy SWELLING Verified 02/18/17 14:45 OF THE TONGUE haloperidol lactate Allergy SWELLING Verified 02/18/17 14:45 [From Haldol] OF THE TONGUE Penicillins Allergy HIVES Verified 02/18/17 14:45 ibuprofen [From Motrin] AdvReac can't take Verified 06/19/18 20:56 it due to ulcers Review of Systems Constitutional: Reports: Fever. Denies: Chills, Weakness Eyes: Denies: Eye discharge, Photophobia ENT: Denies: Congestion, Dental pain, Throat pain Respiratory: Reports: As per HPI, Cough, Dyspnea, Wheezes. Denies: Hemoptysis Cardiovascular: Denies: Arrhythmia, Chest pain, Syncope Endocrine: Denies: Fatigue Gastrointestinal: Denies: Abdominal pain, Diarrhea, Nausea, Vomiting Musculoskeletal: Denies: Arthralgia, Back pain Skin: Denies: Bruising, Rash Neurological: Denies: Abnormal gait, Headache, Tingling, Weakness Psychiatric: Denies: Anxiety Hematological/Lymphatic: Denies: Anemia <London Diamond - Last Filed: 01/05/19 18:57> Past Medical History - SOCIAL HISTORY Smoking Status: Heavy tobacco smoker (>10/day) Drug Use Detail:: Marijuana - RESPIRATORY Hx Respiratory Disorders: Yes Hx COPD: Yes - CARDIOVASCULAR Hx Cardio Disorders: Yes Hx CHF: Yes Comment:: leaky mitral and aortic valve - NEURO Hx Neuro Disorders: Yes Hx Dizziness: Yes Hx Seizures: No Hx TIA: Yes - GI Hx GI Disorders: Yes Hx Reflux: Yes Hx Ulcer: Yes - Hx Genitourinary Disorders: Yes Hx UTI: Yes Comment:: interstitial cystitis - ENDOCRINE Hx Endocrine Disorders: Yes Hx Thyroid Disease: Yes (hyper) - MUSCULOSKELETAL Hx Musculoskeletal Disorders: Yes Hx Arthritis: Yes Hx Back Injury: Yes (ruptured disks in neck and lower back) Comment:: stenosis of the spine - PSYCH Hx Psych Problems: Yes Hx Anxiety: Yes - HEMATOLOGY/ONCOLOGY Hx Hematology/Oncology Disorders: No <London Diamond - Last Filed: 01/05/19 18:57> Family Medical History Hx Cancer: Father (Renal Ca) <London Diamond - Last Filed: 01/05/19 18:57> Physical Exam - General General Appearance: Alert, Oriented x3, Cooperative, Mild distress - Head Head exam: Atraumatic - Eye Eye exam: Normal appearance, PERRL - ENT ENT exam: Normal exam, Mucous membranes moist, Normal external ear exam, Normal orophraynx, TM's normal bilaterally - Neck Neck exam: Normal inspection, Full ROM. negative: Tenderness - Respiratory Respiratory exam: Decreased breath sounds, Prolonged expiratory, Rhonchi, Wheezes. negative: Chest wall tenderness, Rales, Respiratory distress - Cardiovascular Cardiovascular Exam: Regular rate, Normal rhythm, Normal heart sounds. negative: Tachycardia Peripheral Pulses: 2+: Radial (R), Radial (L) - GI/Abdominal GI/Abdominal exam: Soft, Normal bowel sounds. negative: Tenderness - Extremities Extremities exam: Normal inspection, Full ROM. negative: Joint swelling, Pedal edema - Back Back exam: Reports: Normal inspection. Denies: Paraspinal tenderness - Neurological Neurological exam: Alert, Normal gait, Oriented X3 - Psychiatric Psychiatric exam: Normal affect, Normal mood - Skin Skin exam: Normal color. negative: Cyanosis, Rash <London Diamond - Last Filed: 01/05/19 18:57> Course - Reevaluation(s) Reevaluation #1: 01/05/19 18:24 On arrival O2 at 4L NC. Decreased to 2L NC and PO 97%. No resp distress or use of accessory muscles. No conversational dyspnea. Non toxic. IV steroids and duoneb given. Await lab and CXR. Reevaluation #2: 01/05/19 18:49 CXR negative and resp improved with neb. await labs. <London Diamond - Last Filed: 01/05/19 18:57> Vital Signs 01/05/19 01/05/19 18:13 18:22 Temperature 98.9 F Pulse Rate 79 76 Respiratory 20 18 Rate Blood Pressure 114/91 Pulse Ox 98 96 - Reevaluation(s) Reevaluation #3: 01/05/19 19:23 uti d/w pt <Magda Hoang - Last Filed: 01/05/19 19:24> Medical Decision Making - Data Complexity MDM Data: Labs Ordered and/or Reviewed, X-Ray Ordered and/or Reviewed - Lab Data Result diagrams: 01/05/19 18:32 01/05/19 18:32 <London Diamond - Last Filed: 01/05/19 18:57> - Lab Data Result diagrams: 01/05/19 18:32 01/05/19 18:32 Lab Results 01/05/19 01/05/19 01/05/19 Range/Units 18:32 18:32 19:07 WBC 9.6 (4.2-12.2) K/uL RBC 4.09 (3.80-5.40) M/uL Hgb 11.2 L (11.6-16.0) gm/dl Hct 37.6 (35.0-47.0) % MCV 91.9 (81-97) fl MCH 27.3 (27-33) pg MCHC 29.8 L (32-36) g/dl RDW 15.6 H (11.5-14.5) % Plt Count 322 (130-400) K/uL MPV 10.5 H (7.4-10.4) fl Gran % 71.5 (47-80) % Lymphocytes % 17.2 (16-45) % Monocytes % 10.1 H (0-9) % Eosinophils % 0.8 (0-6) % Basophils % 0.4 (0-6) % Absolute Neutrophils 6.86 Sodium 139 (136-145) mmol/L Potassium 3.9 (3.4-4.5) mmol/L Chloride 96 L (98-107) mmol/L Carbon Dioxide 32.0 H (22-29) mmol/L Anion Gap 11.0 (7-16) BUN 26 H (8-23) mg/dL Creatinine 1.1 H (0.5-0.9) mg/dL Estimated GFR 53 mL/min Random Glucose 167 H (74-109) mg/dL Calcium 9.3 (8.8-10.2) mg/dL Urine Color Yellow Urine Appearance Clear Urine pH 6.0 (5.0-8.0) Ur Specific [place] 1.020 (1.002-1.030) Urine Protein Negative (NEGATIVE) Urine Glucose (UA) Negative (NEGATIVE) Urine Ketones Negative (NEGATIVE) Urine Blood Negative (NEGATIVE) Urine Nitrite Negative (NEGATIVE) Urine Bilirubin Negative (NEGATIVE) Urine Urobilinogen 0.2 (0.20 - 1.00) E.U./dL Ur Leukocyte Esterase Small H (NEGATIVE) Urine RBC 0 - 2 (NONE SEEN) Urine WBC 6 - 10 (0-2/hpf) Ur Epithelial Cells 0 - 2 (FEW) Urine Bacteria 1+ <Magda Hoang - Last Filed: 01/05/19 19:24> Disposition Disposition: Discharge <London Diamond - Last Filed: 01/05/19 18:57> Disposition: Discharge <Magda Hoang - Last Filed: 01/05/19 19:24> Clinical Impression: COPD exacerbation UTI (urinary tract infection) Qualifiers: Urinary tract infection type: acute cystitis Hematuria presence: without hematuria Qualified Code(s): N30.00 - Acute cystitis without hematuria Disposition: Home, Self-Care Condition: (2) Stable Instructions: COPD (Chronic Obstructive Pulmonary Disease) (ED), Urinary Tract Infection in Women (ED) Additional Instructions: Continue using you oxygen at home DO NOT SMOKE ESPECIALLY WHEN ON OXYGEN> Take antibiotic and steroids as instructed. See your doctor in 2-3 days Return here as needed. Prescriptions: Doxycycline Monohydrate 100 mg PO BID 7 Days #14 tablet Ipratropium/Albuterol [Duoneb] 3 ml INH RESP.Q4H.WA #120 ampul.neb Prednisone [Prednisone 20Mg] 20 mg PO DAILY 6 Days #9 tab Forms: Patient Portal Access Quality - Blood Pressure Screening Does Patient Have Any of the Following: No Blood Pressure Classification: Hypertensive Reading Systolic Measurement: 114 Diastolic Measurement: 91 <London Diamond - Last Filed: 01/05/19 18:57> - Quality Measures Quality Measures: N/A - Blood Pressure Screening Does Patient Have Any of the Following: Active Dx of HTN Blood Pressure Classification: Hypertensive Reading Systolic Measurement: 114 Diastolic Measurement: 91 Screening for High Blood Pressure: Patient Exclusion, Hx of HTN [[id number]] <Magda Hoang - Last Filed: 01/05/19 19:24>
[2019-01-05 18:42] LABS: ABSOLUTE NEUTROPHIL COUNT 6.86; BASO % 0.4 % (0-6); EOS % 0.8 % (0-6); GRAN % 71.5 % (47-80); HEMATOCRIT 37.6 % (35.0-47.0); HEMOGLOBIN 11.2 gm/dl (11.6-16.0); LYMPH % 17.2 % (16-45); MEAN CELL VOLUME 91.9 fl (81-97); MEAN CORPUSCULAR HGB CONC 29.8 g/dl (32-36); MEAN PLATELET VOLUME 10.5 fl (7.4-10.4); MONO % 10.1 % (0-9); PLATELET COUNT 322 K/uL (130-400); RED BLOOD COUNT 4.09 M/uL (3.80-5.40); RED CELL DISTRIBUTION WIDTH 15.6 % (11.5-14.5); WHITE BLOOD COUNT W/O DIFF 9.6 K/uL (4.2-12.2)
[2019-01-05 18:45] LABS: MEAN CORPUSCULAR HEMOGLOBIN 27.3 pg (27-33)
[2019-01-05 18:52] LABS: CREATININE 1.1 mg/dL (0.5-0.9)
[2019-01-05] MEDS ORDERED: DOXYCYCLINE HYCLATE 100 MG CAPSULE PO ONE (18:56)
[2019-01-05 19:07] LABS: URINE APPEARANCE CLEAR; URINE BILIRUBIN NEGATIVE (NEGATIVE); URINE BLOOD NEGATIVE (NEGATIVE); URINE COLOR YELLOW; URINE GLUCOSE (UA) NEGATIVE (NEGATIVE); URINE KETONE NEGATIVE (NEGATIVE); URINE LEUKOCYTE ESTERASE SMALL (NEGATIVE); URINE NITRITE NEGATIVE (NEGATIVE); URINE PROTEIN NEGATIVE (NEGATIVE); URINE UROBILINOGEN 0.2 E.U./dL (0.20 - 1.00)
[2019-01-05 19:17] LABS: URINE BACTERIA 1+; URINE EPITHELIAL CELLS 0 - 2 (FEW); URINE RBC 0 - 2 (NONE SEEN)
--- NOTE | 2019-01-06 14:30 | RADIOLOGY REPORT ---
EXAM: CHEST, TWO VIEWS HISTORY: COUGH AND COPD. TECHNIQUE: Two views of the chest were obtained. Comparison: 06/21/18. FINDINGS: The heart is of normal size. Inspiration is suboptimal. The lungs show no evidence of pneumonia, effusion, edema, or pneumothorax. No suspicious pulmonary nodule. No acute skeletal findings. 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 IMPRESSION: NO ACUTE CHEST PATHOLOGY EVIDENT. JOB NUMBER: [id number] MTDD
== END 2019-01-05 21:27 | disposition home or self-care (01) ==
LOC: ER 18:09
DX: J44.1 Chronic obstructive pulmonary disease with (acute) exacerbation (principal); F17.200 Nicotine dependence, unspecified, uncomplicated; I50.9 Heart failure, unspecified; N39.0 Urinary tract infection, site not specified
CPT/HCPCS: 71046; 80048; 81001; 85025; 94640; 94664; 96374; 99284; J2930